=== PATIENT | male | born 1955 | race Caucasian/White ===

== ENCOUNTER 2025-03-24 11:28 | Observation (INO) ==
[2025-03-24] MEDS ORDERED: ULTANE GAS IN ONE (11:30)
[2025-03-24] MEDS ORDERED: XYLOCAINE 2 % (PLAIN) ONE (11:30)
[2025-03-24] MEDS ORDERED: KETAMINE HCL ONE (11:30)
[2025-03-24] MEDS: DUONEB 0.5 MG/3 MG (3 mL) NEB ONE (12:12)
[2025-03-24] MEDS: LR 1,000 ML IV 1,000 ML IV ONE (12:12)
[2025-03-24 12:27] VITALS: BMI 28.3
[2025-03-24] MEDS: XYLOCAINE 2 % (PLAIN) ONE (13:46)
[2025-03-24] MEDS: OFIRMEV IV 1000 MG VIAL 0 MG/0 ML VIAL IV ONE (13:46)
[2025-03-24] MEDS: DIPRIVAN VIAL 20 ML ONE (13:46)
[2025-03-24] MEDS: FENTANYL VIAL INJ 100 mcg ONE (13:48)
[2025-03-24] MEDS: VERSED ONE (13:49)
[2025-03-24] MEDS: AMIDATE INJ 40 MG VIAL ONE (16:42)
[2025-03-24] MEDS: NS 100 ML IV 100 ML ONE (16:55)
[2025-03-24] MEDS: ANCEF VIAL 1 GRAM ONE (16:55)
[2025-03-24] MEDS: BETADINE SOLN ONE (17:05)
[2025-03-24] MEDS: DILAUDID INJ ONE (17:18)
[2025-03-24] MEDS: TORADOL 30 MG VIAL ONE (17:20)
[2025-03-24] MEDS: OFIRMEV IV 1000 MG VIAL 1,000 MG/100 ML VIAL IV ONE (17:20)
[2025-03-24] MEDS: PRECEDEX INJ VIAL ONE (17:23)
[2025-03-24] MEDS: MARCAINE/EPINEPHRINE ONE (17:24)
[2025-03-24] MEDS ORDERED: BARHEMSYS INJ IVP PRN (17:45)
[2025-03-24] MEDS ORDERED: BENADRYL INJ 50 MG VIAL IVP PRN (17:45)
[2025-03-24] MEDS ORDERED: REGLAN INJ 10 MG VIAL IVP PRN (17:45)
[2025-03-24] MEDS ORDERED: ZOFRAN INJ 4 MG VIAL IVP PRN (17:45)
[2025-03-24] MEDS ORDERED: DILAUDID INJ IVP PRN (17:45)
[2025-03-24] MEDS ORDERED: PROVENTIL NEB TX 0.083% 2.5MG/ 3ML NEB PRN (17:55)
--- NOTE | 2025-03-24 18:12 | OR.IMMED ---
IMMEDIATE POST-OP NOTE Immediate Post-Op Note Date of surgery/procedure: 03/24/25 Pre-Op Diagnosis: Ischemic left leg failed revascularization Post-Op Diagnosis: Same Procedure: Left below-knee amputation Description of Procedure: dictated Surgeon/Sock Mender: Victoriano Findings: as above, non healing left transmetatarsal amputation Specimens Removed: left leg below knee Estimated Blood Loss: 200cc Complications: none Progress Notes: to PACU , then to floor
[2025-03-24 18:34] LABS: MEAN PLATELET VOLUME 8.0 fL (7.4-11.0); RED CELL DISTRIBUTION WIDTH 16.1 % (11.6-16.5)
[2025-03-24] MEDS: LR 1,000 ML IV 1,000 ML IV SCH (19:05)
[2025-03-24] MEDS: COREG TAB 12.5 MG PO SCH (20:51)
[2025-03-25 00:07] VITALS: O2SAT 100
[2025-03-25] MEDS: PERCOCET TAB 5/325 MG PO PRN (01:21)
[2025-03-25 06:45] LABS: COR CA(FOR HYPOALB) 10.0 mg/dL (8.5-10.1); COR NA(FOR HYPERGLY) 137 mmol/L (136-145); CREATININE 0.80 mg/dL (0.70-1.30); eGFR NON BLACK RACES > 60 (>60)
[2025-03-25 06:57] LABS: RED CELL DISTRIBUTION WIDTH 16.5 % (11.6-16.5)
[2025-03-25 07:00] LABS: MEAN PLATELET VOLUME 8.3 fL (7.4-11.0)
[2025-03-25 07:16] LABS: PLATELET MORPHOLOGY COMMENT NORMAL (NORMAL)
[2025-03-25] MEDS: LOVENOX INJ 40 MG SYR SC SCH (08:37)
[2025-03-25] MEDS: ASPIRIN EC 81 MG PO SCH (08:38)
[2025-03-25] MEDS: ALDACTONE TAB 25 MG PO SCH (08:38)
[2025-03-25 09:14] VITALS: RESP 18
[2025-03-25 12:02] VITALS: BP 108/53; PULSE 74; TEMP 97.7
--- NOTE | 2025-03-25 12:19 | W.DIS.FURT ---
Summary of Discharge Discharge Summary of Date Date of Exam: 03/25/25 Admission Date Date of Admission: 03/24/25 Admission Diagnosis Hospital Course: 69 yo male with significant peripheral vascular s/p revascularization both legs and b/l tranmetatarsal amputations . Left side has never healed and after open revision of left femoral popliteal bypass to left femoral, peroneal bypass left foot is severely ischemic. He underwent uncomplicated left below knee amputation and has done well. Pain controlled with po pain medications and he already has walker at home. F/U with me 10 days and leave compressive dressing in place. He will be on his usual pain medications and will have prescription for po Perceocet, 5 mg . Hgb post op yesterday was 7.7 and is 7.8 this AM. His vitals are stable . Vital Signs: Vital Signs (72 hours) 03/24/25 12:01 03/24/25 12:14 03/24/25 12:16 Temperature 98.9 F Pulse Rate 113 H 113 H Pulse Rate [Left Radial] Respiratory Rate 20 Blood Pressure 129/69 Blood Pressure [Left Arm] O2 Sat by Pulse Oximetry 100 Oxygen Delivery Method Room Air Room Air Oxygen Flow Rate 100 FIO2% 03/24/25 18:07 03/24/25 18:12 03/24/25 18:17 Temperature 99.5 F Pulse Rate 92 H 91 H 86 Pulse Rate [Left Radial] Respiratory Rate 16 18 18 Blood Pressure 125/69 124/71 108/61 Blood Pressure [Left Arm] O2 Sat by Pulse Oximetry 100 100 95 Oxygen Delivery Method Aerosol Face Tent Aerosol Face Tent Nasal Cannula Oxygen Flow Rate FIO2% 03/24/25 18:22 03/24/25 18:27 03/24/25 18:32 Temperature Pulse Rate 86 84 83 Pulse Rate [Left Radial] Respiratory Rate 18 18 18 Blood Pressure 113/62 108/64 106/61 Blood Pressure [Left Arm] O2 Sat by Pulse Oximetry 97 96 99 Oxygen Delivery Method Nasal Cannula Nasal Cannula Nasal Cannula Oxygen Flow Rate FIO2% 03/24/25 18:37 03/24/25 18:45 03/24/25 19:00 Temperature 97.6 F Pulse Rate 84 Pulse Rate [Left Radial] 90 Respiratory Rate 18 18 Blood Pressure 111/65 Blood Pressure [Left Arm] 116/62 O2 Sat by Pulse Oximetry 100 98 Oxygen Delivery Method Nasal Cannula Nasal Cannula Nasal Cannula Oxygen Flow Rate 2 2 FIO2% 03/24/25 19:00 03/24/25 19:00 03/24/25 19:15 Temperature 97.6 F 97.8 F Pulse Rate Pulse Rate [Left Radial] 80 85 Respiratory Rate 17 18 Blood Pressure Blood Pressure [Left Arm] 117/63 107/61 O2 Sat by Pulse Oximetry 97 99 Oxygen Delivery Method Nasal Cannula Nasal Cannula Nasal Cannula Oxygen Flow Rate 2 2 2 FIO2% 28 03/24/25 19:30 03/24/25 19:45 03/24/25 20:00 Temperature 97.9 F 97.9 F 97.9 F Pulse Rate Pulse Rate [Left Radial] 80 85 80 Respiratory Rate 20 20 20 Blood Pressure Blood Pressure [Left Arm] 111/61 105/60 117/65 O2 Sat by Pulse Oximetry 98 98 95 Oxygen Delivery Method Nasal Cannula Nasal Cannula Nasal Cannula Oxygen Flow Rate 2 2 2 FIO2% 03/24/25 20:45 03/24/25 21:20 03/24/25 21:45 Temperature 98.2 F 98.0 F Pulse Rate 88 Pulse Rate [Left Radial] 90 79 Respiratory Rate 18 18 Blood Pressure Blood Pressure [Left Arm] 105/59 110/63 O2 Sat by Pulse Oximetry 99 100 99 Oxygen Delivery Method Nasal Cannula Nasal Cannula Oxygen Flow Rate 2 2 FIO2% 03/24/25 22:45 03/24/25 23:45 03/25/25 00:00 Temperature 97.9 F 98.1 F 98.2 F Pulse Rate Pulse Rate [Left Radial] 80 80 87 Respiratory Rate 18 20 18 Blood Pressure Blood Pressure [Left Arm] 112/59 115/62 117/66 O2 Sat by Pulse Oximetry 100 100 100 Oxygen Delivery Method Nasal Cannula Nasal Cannula Oxygen Flow Rate 2 2 FIO2% 03/25/25 01:21 03/25/25 02:21 03/25/25 04:00 Temperature 97.7 F Pulse Rate Pulse Rate [Left Radial] 79 Respiratory Rate 20 18 20 Blood Pressure Blood Pressure [Left Arm] 116/60 O2 Sat by Pulse Oximetry 100 Oxygen Delivery Method Oxygen Flow Rate FIO2% 03/25/25 05:23 03/25/25 06:23 03/25/25 07:00 Temperature Pulse Rate Pulse Rate [Left Radial] Respiratory Rate 20 20 Blood Pressure Blood Pressure [Left Arm] O2 Sat by Pulse Oximetry Oxygen Delivery Method Room Air Oxygen Flow Rate FIO2% 03/25/25 08:00 03/25/25 09:03 03/25/25 10:03 Temperature 97.9 F Pulse Rate Pulse Rate [Left Radial] 93 H Respiratory Rate 16 18 18 Blood Pressure Blood Pressure [Left Arm] 100/55 O2 Sat by Pulse Oximetry 100 Oxygen Delivery Method Nasal Cannula Oxygen Flow Rate 2 FIO2% 03/25/25 10:20 03/25/25 12:00 Temperature 97.7 F Pulse Rate Pulse Rate [Left Radial] 74 Respiratory Rate 18 Blood Pressure Blood Pressure [Left Arm] 108/53 O2 Sat by Pulse Oximetry 100 Oxygen Delivery Method Nasal Cannula Nasal Cannula Oxygen Flow Rate 2 2 FIO2% 28 Labs: Laboratory Last Values WBC 9.1 X10^3/uL (3.6-10.0) 03/25/25 05:23 RBC 2.52 X10^6/uL (4.7-6.0) L 03/25/25 05:23 Hgb 7.8 g/dL (13.5-18.0) L 03/25/25 05:23 Hct 23.0 % (42.0-54.0) L 03/25/25 05:23 MCV 91.2 fL (80.0-100.0) 03/25/25 05:23 MCH 31.0 pg (27.0-34.0) 03/25/25 05:23 MCHC 34.0 g/dL (33.0-35.0) 03/25/25 05:23 RDW 16.5 % (11.6-16.5) 03/25/25 05:23 Plt Count 237 X10^3/uL (150.0-450.0) 03/25/25 05:23 Plt Count Comment Adequate (ADEQUATE) 03/25/25 05:23 MPV 8.3 fL (7.4-11.0) 03/25/25 05:23 Neut % (Auto) 68.2 % (42.0-75.0) 03/25/25 05:23 Lymph % (Auto) 19.2 % (21.0-51.0) L 03/25/25 05:23 [place] % (Auto) 11.7 % (0.0-13.0) 03/25/25 05:23 Eos % (Auto) 0.4 % (0.9-2.9) L 03/25/25 05:23 Baso % (Auto) 0.5 % (0.2-1.0) 03/25/25 05:23 Neut # (Auto) 6.2 x10^3/uL (2.2-4.8) H 03/25/25 05:23 Lymph # (Auto) 1.8 X10^3/uL (1.3-2.9) 03/25/25 05:23 [place] # (Auto) 1.1 x10^3/uL (0.3-0.8) H 03/25/25 05:23 Eos # (Auto) 0.0 x10^3/uL (0.0-0.2) 03/25/25 05:23 Baso # (Auto) 0.0 X10^3/uL (0.0-0.1) 03/25/25 05:23 Absolute Nucleated RBC 0.1 /100WBC 03/25/25 05:23 Total Counted 100 03/25/25 05:23 Neutrophils % (Manual) 80 % (39-76) H 03/25/25 05:23 Lymphocytes % (Manual) 14 % (13-43) 03/25/25 05:23 Monocytes % (Manual) 6 % (4-9) 03/25/25 05:23 Plt Morphology Comment Normal (NORMAL) 03/25/25 05:23 RBC Morphology Normal (NORMAL) 03/25/25 05:23 Sodium 137 mmol/L (136-145) 03/25/25 05:23 Corrected Sodium 137 mmol/L (136-145) 03/25/25 05:23 Potassium 3.7 mmol/L (3.5-5.1) 03/25/25 05:23 Chloride 101 mmol/L (98-107) 03/25/25 05:23 Carbon Dioxide 32.3 mmol/L (21-32) H 03/25/25 05:23 BUN 12 mg/dL (7-18) 03/25/25 05:23 Creatinine 0.80 mg/dL (0.70-1.30) 03/25/25 05:23 Est GFR (MDRD) Af Amer > 60 (>60) 03/25/25 05:23 Est GFR (MDRD) Non-Af > 60 (>60) 03/25/25 05:23 Glucose 119 mg/dL (65-99) H 03/25/25 05:23 Calcium 8.2 mg/dL (8.5-10.1) L 03/25/25 05:23 Corrected Calcium 10.0 mg/dL (8.5-10.1) 03/25/25 05:23 Total Bilirubin 0.70 mg/dL (0.2-1.0) 03/25/25 05:23 AST 30 Units/L (15-37) 03/25/25 05:23 ALT 248 Units/L (12-78) H 03/25/25 05:23 Alkaline Phosphatase 88 Units/L (46-116) 03/25/25 05:23 Total Protein 6.1 g/dL (6.4-8.2) L 03/25/25 05:23 Albumin 1.8 g/dL (3.4-5.0) L 03/25/25 05:23 Globulin 4.3 g/dL (2.5-4.5) 03/25/25 05:23 Albumin/Globulin Ratio 0.4 Ratio (1.1-2.1) L 03/25/25 05:23 Blood Type AB NEGATIVE 03/24/25 13:23 Antibody Screen Negative 03/24/25 13:23 Reason For Visit: SURGERY Discharge Date Discharge Date: 03/25/25 Discharge Diagnosis All Active Problems (Updated 11/30/24 @ 08:13 by Vasyl Marrero) Gangrene due to arterial insufficiency (Acute) Personal history of lung cancer (Acute) Essential (primary) hypertension (Acute) Congestive heart disease (Acute) Atherosclerosis of [place] arteries of extremities with rest pain, right leg (Acute) Atherosclerosis of [place] arteries of extremities with rest pain, left leg (Acute) Plan of Treatment: Continue with present treatment and follow up plan. Pt is to keep follow up appointment as instructed and take medications as ordered. Discharge Medications Discharge Medications: pregabalin (From Lyrica) Adverse Reaction (Severe, Verified 03/08/25 18:07) gabapentin Adverse Reaction (Intermediate, Verified 03/08/25 18:07) CONTINUE taking the following medications rivaroxaban 2.5 mg tablet (Xarelto) 2.5 mg PO BID 03/24/25 [History] spironolactone 25 mg tablet 25 mg PO DIRECTED 03/24/25 [History] see below Discharge Disposition Assessment: see hospital course Discharge Plan Discharge Plan Hospital Course: 69 yo male with significant peripheral vascular s/p revascularization both legs and b/l tranmetatarsal amputations . Left side has never healed and after open revision of left femoral popliteal bypass to left femoral, peroneal bypass left foot is severely ischemic. He underwent uncomplicated left below knee amputation and has done well. Pain controlled with po pain medications and he already has walker at home. F/U with me 10 days and leave compressive dressing in place. He will be on his usual pain medications and will have prescription for po Perceocet, 5 mg . Hgb post op yesterday was 7.7 and is 7.8 this AM. His vitals are stable . Patient Disposition: HOME HEALTH SERVICE Condition: Stable Health Concerns: Post Hospitalization: new medications and changes needed to prevent readmission or further decline. Pt educated and given instructions on all concerns. Care Plan Goals: Problem: Pain/Alteration in Comfort Goal: Improve/ Resolve Pain; Achieve Pain Tolerance Instructions: Take pain medications as prescribed. Contact your primary care provider if your pain is unrelieved or worsens. Follow up with primary care provider as directed. Plan of Treatment: Continue with present treatment and follow up plan. Pt is to keep follow up appointment as instructed and take medications as ordered. Assessment: see hospital course Prescriptions: New oxycodone-acetaminophen [Percocet] 5-325 mg tablet 1 tab PO Q6H MDD 4 PRNQty: 30 0RF Continued clopidogrel [Plavix] 75 mg Tablet 75 mg PO DAILY oxycodone-acetaminophen [Percocet] 5-325 mg tablet 1 tab PO Q6H MDD 4 PRNQty: 30 0RF rivaroxaban [Xarelto] 2.5 mg Tablet 2.5 mg PO BID Rx Instructions: with food spironolactone 25 mg Tablet 25 mg PO DIRECTED aspirin 81 mg Tablet 81 mg PO QDAY carvedilol 12.5 mg Tablet 12.5 mg PO BID Rx Instructions: must administer with a meal/food oxycodone-acetaminophen [Percocet] 5-325 mg tablet 1 tab PO Q6H MDD 4 PRNQty: 30 0RF Follow ups/Referrals Follow ups/Referrals: Cisco Pastrana [STAFF PHYSICIAN, Unknown] - 04/11/25 3:45 pm Instructions Instructions: Stump and Prosthesis Care, Living With an Amputation, Phantom Limb Pain, Gangrene Stand Alone Forms: Excuse From Work or School, Find Help Web Site, [facility], Post Hospital Follow Up Care Print Language: SLOVENIAN
--- NOTE | 2025-03-30 15:10 | DR.OPNOTE ---
OP NOTE Pre-Op Diagnosis: Gangrenous changes left foot Post-Op Diagnosis: Same Procedure Date Date Of Procedure: 03/24/25 Procedure: PROCEED: Left below-knee amputation NARRATIVE: Patient taken to the operative suite placed in supine position and general anesthesia induced with LMA to control the airway. Entire left leg prepped and draped in sterile fashion. Timeout for the procedure obtained. A standard dog legged incision was made 1 handsbreadth below the tibial tuberosity and extended inferiorly and posteriorly. Electrocautery used to divide the muscles in the anterior tibial compartment and anterior tibial artery and vein divided between clamps and tied with 2-0 silk suture ligatures the tibia was divided with a Gigli saw and the fibula divided higher with a bone cutter. Amputation knife used to complete the amputation. Specimen removed. All bleeding vessels were clamped and tied with 2-0 silk suture ligatures. The wound irrigated. The 2 flaps approximated interrupted with 0 Vicryl interuppted sutures and the skin closed with skin frida. Compressive dressing applied. Patient tolerated this well Type of Anesthesia: General Anesthetic w/ETT (General anesthesia performed with LMA) Findings: As above Specimen/Pathology: Left leg below-knee Type of Fluids Used:: Lactated Ringers EBL: 100 cc Complications:: none Disposition/Condition: Pt. tolerated procedure without difficulty. Extubated in the OR and taken to PACU in stable condition.
== END 2025-03-25 12:20 | disposition home health service (06) ==
LOC: INTOOBSV 11:28 → MED/SURG 11:28
PROVIDERS: ADMIT Surgery; ATTEND Surgery
DX: Z85.118 Personal history of other malignant neoplasm of bronchus and lung; Z98.890 Other specified postprocedural states; I70.222 Atherosclerosis of native arteries of extremities with rest pain, left leg; I96 Gangrene, not elsewhere classified; R74.01 Elevation of levels of liver transaminase levels; I10 Essential (primary) hypertension; R26.89 Other abnormalities of gait and mobility; R73.09 Other abnormal glucose; Z86.79 Personal history of other diseases of the circulatory system

== ENCOUNTER 2025-04-08 10:09 | Inpatient (IN) ==
[2025-04-08] MEDS ORDERED: PRECEDEX INJ VIAL ONE (10:10)
[2025-04-08] MEDS: DILAUDID INJ IVP PRN (11:54)
[2025-04-08] MEDS: LR 1,000 ML IV 1,000 ML IV SCH (12:15)
[2025-04-08 12:37] LABS: MEAN PLATELET VOLUME 7.6 fL (7.4-11.0); RED CELL DISTRIBUTION WIDTH 17.8 % (11.6-16.5)
[2025-04-08 12:57] LABS: COR CA(FOR HYPOALB) 9.9 mg/dL (8.5-10.1); CREATININE 0.90 mg/dL (0.70-1.30); eGFR NON BLACK RACES > 60 (>60)
[2025-04-08] MEDS: ZOSYN VIAL 3.375 GRAMS 3.375 G in NS 100 ML IV 100 ML IV SCH (15:15)
[2025-04-08 16:20] VITALS: BMI 28.3
[2025-04-08] MEDS: NS 250 ML IV 250 ML IV ONE (17:03)
[2025-04-08] MEDS: NS 250 ML IV 25 ML IV PRN (21:05)
[2025-04-08] MEDS ORDERED: HIBICLENS WASH ONE (21:26)
[2025-04-09 05:01] LABS: MEAN PLATELET VOLUME 7.6 fL (7.4-11.0); RED CELL DISTRIBUTION WIDTH 17.8 % (11.6-16.5)
[2025-04-09] MEDS: HIBICLENS WASH EXT ONE (05:08)
[2025-04-09 05:10] LABS: COR CA(FOR HYPOALB) 9.8 mg/dL (8.5-10.1); CREATININE 1.00 mg/dL (0.70-1.30); eGFR NON BLACK RACES > 60 (>60)
[2025-04-09] MEDS ORDERED: CONSULT PHARMACY - POTASSIUM & MAGNESIUM XX SCH (08:00)
[2025-04-09] MEDS ORDERED: MAG-OX TAB PO SCH (09:00)
[2025-04-09] MEDS: ALDACTONE TAB 25 MG PO SCH (09:22)
[2025-04-09] MEDS: MAGNESIUM SULFATE 1 GRAM/100 mL PREMIX 1 G/100 ML BAG IV SCH (09:27)
--- NOTE | 2025-04-09 09:39 | DR.CONSULT ---
CONSULT Consultation for Day of: Date: 04/09/25 Chief Complaint Chief Complaint: right TMA site Allergies Allergies Allergy/AdvReac Type Severity Reaction Status Date / Time pregabalin (From Lyrica) AdvReac Severe Verified 03/08/25 18:07 gabapentin AdvReac Intermediate Verified 03/08/25 18:07 History of Present Illness History of Present Illness: Mr. Wilhelm is a 69 y/o who presented after a fall at home where he landed on his left BKA site. Patient is scheduled for a debridement with Dr. Pastrana today. Podiatry was consulted for the RLE. Patient underwent a right transmetatarsal amputation on 03/02/25 and has been seen outpatient by Dr. Lewis. Patient has had home health care removing the bandages, however, he missed his last appointment on 04/[address] Lewis due to the fall. Patient states he thought his TMA site was looking good and did not notice any changes with his leg. He states he gets redness in his leg and has said it was cellulitis. Patient denies any fevers at this time. Past Medical History Past Medical History: CHF and Hypertension Additional Medical History: History of right lung cancer resected thorocoscopically . No adjuvant treatment given or required. Past Surgical History Surgical History: Angioplasty/Stents, Ortho Surgery and Other Family History Family Medical History: Diabetes Mellitus Social History Does patient currently use any type of tobacco product: Yes Have you used tobacco products in the last 12 months: Yes Type of Tobacco Use: Cigarettes Medications Home Medications: pregabalin (From Lyrica) Adverse Reaction (Severe, Verified 03/08/25 18:07) gabapentin Adverse Reaction (Intermediate, Verified 03/08/25 18:07) CONTINUE taking the following medications albuterol sulfate 2.5 mg/3 mL (0.083 %) solution for nebulization 2.5 mg continuous nebulization Q6H PRN 04/08/25 [History] tramadol 50 mg tablet 50 mg PO Q4H PRN 04/08/25 [History] Physical Exam Vital Signs: Vital Signs Temperature 98.0 F Temperature 98.0 F Temperature 98.0 F Pulse Rate [Bilateral Radial] 95 Pulse Rate 101 Pulse Rate 104 Pulse Rate 96 Pulse Rate 100 Pulse Rate 100 Pulse Rate 102 Pulse Rate 108 Pulse Rate 109 Pulse Rate 103 Pulse Rate 96 Pulse Rate 103 Pulse Rate 96 Pulse Rate 102 Pulse Rate 99 Pulse Rate 99 Pulse Rate 99 Pulse Rate 104 Pulse Rate 98 Pulse Rate 97 Pulse Rate 102 Pulse Rate 111 Pulse Rate 105 Pulse Rate 96 Pulse Rate 95 Pulse Rate 98 Pulse Rate 97 Pulse Rate 100 Pulse Rate 97 Pulse Rate 98 Pulse Rate 102 Pulse Rate 109 Pulse Rate 115 Pulse Rate 110 Pulse Rate 92 Pulse Rate 89 Pulse Rate 92 Respiratory Rate 14 Respiratory Rate 17 Respiratory Rate 18 Respiratory Rate 16 Respiratory Rate 11 Respiratory Rate 19 Respiratory Rate 15 Respiratory Rate 17 Respiratory Rate 14 Respiratory Rate 18 Respiratory Rate 16 Respiratory Rate 14 Respiratory Rate 18 Respiratory Rate 20 Respiratory Rate 22 Respiratory Rate 22 Respiratory Rate 16 Respiratory Rate 18 Respiratory Rate 18 Respiratory Rate 18 Respiratory Rate 17 Respiratory Rate 14 Respiratory Rate 24 Respiratory Rate 17 Respiratory Rate 32 Respiratory Rate 28 Respiratory Rate 17 Respiratory Rate 17 Respiratory Rate 17 Respiratory Rate 20 Respiratory Rate 20 Respiratory Rate 21 Respiratory Rate 19 Respiratory Rate 17 Respiratory Rate 18 Respiratory Rate 16 Respiratory Rate 28 Respiratory Rate 18 Respiratory Rate 17 Respiratory Rate 22 Blood Pressure [Left Arm] 127/62 Blood Pressure 130/76 Blood Pressure 128/68 Blood Pressure 128/67 Blood Pressure 128/60 Blood Pressure 128/60 Blood Pressure 124/64 Blood Pressure 124/64 Blood Pressure 127/62 Blood Pressure 127/62 Blood Pressure 127/64 Blood Pressure 127/64 Blood Pressure 118/66 Blood Pressure 118/66 O2 Sat by Pulse Oximetry 95 O2 Sat by Pulse Oximetry 96 O2 Sat by Pulse Oximetry 94 O2 Sat by Pulse Oximetry 97 O2 Sat by Pulse Oximetry 95 O2 Sat by Pulse Oximetry 95 O2 Sat by Pulse Oximetry 95 O2 Sat by Pulse Oximetry 98 O2 Sat by Pulse Oximetry 98 O2 Sat by Pulse Oximetry 96 O2 Sat by Pulse Oximetry 95 O2 Sat by Pulse Oximetry 95 O2 Sat by Pulse Oximetry 95 O2 Sat by Pulse Oximetry 95 O2 Sat by Pulse Oximetry 96 O2 Sat by Pulse Oximetry 95 O2 Sat by Pulse Oximetry 92 O2 Sat by Pulse Oximetry 97 O2 Sat by Pulse Oximetry 94 O2 Sat by Pulse Oximetry 96 O2 Sat by Pulse Oximetry 96 O2 Sat by Pulse Oximetry 86 O2 Sat by Pulse Oximetry 99 O2 Sat by Pulse Oximetry 97 O2 Sat by Pulse Oximetry 98 O2 Sat by Pulse Oximetry 97 O2 Sat by Pulse Oximetry 96 O2 Sat by Pulse Oximetry 98 O2 Sat by Pulse Oximetry 97 O2 Sat by Pulse Oximetry 96 O2 Sat by Pulse Oximetry 96 O2 Sat by Pulse Oximetry 95 O2 Sat by Pulse Oximetry 96 O2 Sat by Pulse Oximetry 99 O2 Sat by Pulse Oximetry 95 O2 Sat by Pulse Oximetry 96 O2 Sat by Pulse Oximetry 97 O2 Sat by Pulse Oximetry 98 RLE focused exam, left BKA noted: To the right TMA site sutures were still intact. Upon removal, surgical site was examined. No bone is exposed at this time. Dehiscence is appreciated to the incision site and measures approximately 6.7 x 0.8 cm. Mild malodor is noted, no fluctuance or crepitus is appreciated to the surrounding site. Periwound erythema is noted that is warm to touch. No increased redness, swelling or cellulitis is noted up the right leg. Mild bleeding was noted to the right foot post-debridement. Post-debridement measurements were the same. Patient has healed wounds to the right calf, no increased warmth or cellulitis is noted. These previously healed wounds are consistent with venous insuffi ciency. Plan (1) Dehiscence of amputation stump of right lower extremity: Status: Acute Plan: - Debrided the Right TMA site, culture was obtained and sent to the lab - Patient may require further surgical intervention to the right TMA site pending culture results - Patient has history of wounds to the right calf, dry sterile dressing with MIGNON wrap for compression was applied - Betadine and dry sterile dressing to the right TMA site - Patient is going to OR today for the left BKA site - Please continue on IV antibiotics at this time - Patient can use the Right foot for transfers only - Will await culture results for further recommendations Please contact me with any questions! Dr. Bridgett Wylie
--- NOTE | 2025-04-09 09:39 | DR.CONSULT ---
CONSULT Consultation for Day of: Date: 04/09/25 Chief Complaint Chief Complaint: right TMA site Allergies Allergies Allergy/AdvReac Type Severity Reaction Status Date / Time pregabalin (From Lyrica) AdvReac Severe Verified 03/08/25 18:07 gabapentin AdvReac Intermediate Verified 03/08/25 18:07 History of Present Illness History of Present Illness: Mr. Wilhelm is a 69 y/o who presented after a fall at home where he landed on his left BKA site. Patient state Past Medical History Past Medical History: CHF and Hypertension Additional Medical History: History of right lung cancer resected thorocoscopically . No adjuvant treatment given or required. Past Surgical History Surgical History: Angioplasty/Stents, Ortho Surgery and Other Family History Family Medical History: Diabetes Mellitus Social History Does patient currently use any type of tobacco product: Yes Have you used tobacco products in the last 12 months: Yes Type of Tobacco Use: Cigarettes Medications Home Medications: pregabalin (From Lyrica) Adverse Reaction (Severe, Verified 03/08/25 18:07) gabapentin Adverse Reaction (Intermediate, Verified 03/08/25 18:07) CONTINUE taking the following medications albuterol sulfate 2.5 mg/3 mL (0.083 %) solution for nebulization 2.5 mg continuous nebulization Q6H PRN 04/08/25 [History] tramadol 50 mg tablet 50 mg PO Q4H PRN 04/08/25 [History] Physical Exam Vital Signs: Vital Signs Temperature 98.0 F Temperature 98.0 F Temperature 98.0 F Pulse Rate [Bilateral Radial] 95 Pulse Rate 103 Pulse Rate 96 Pulse Rate 103 Pulse Rate 96 Pulse Rate 102 Pulse Rate 99 Pulse Rate 99 Pulse Rate 99 Pulse Rate 104 Pulse Rate 98 Pulse Rate 97 Pulse Rate 102 Pulse Rate 111 Pulse Rate 105 Pulse Rate 96 Pulse Rate 95 Pulse Rate 98 Pulse Rate 97 Pulse Rate 100 Pulse Rate 97 Pulse Rate 98 Pulse Rate 102 Pulse Rate 109 Pulse Rate 115 Pulse Rate 110 Pulse Rate 92 Pulse Rate 89 Pulse Rate 92 Respiratory Rate 18 Respiratory Rate 16 Respiratory Rate 14 Respiratory Rate 18 Respiratory Rate 20 Respiratory Rate 22 Respiratory Rate 22 Respiratory Rate 16 Respiratory Rate 18 Respiratory Rate 18 Respiratory Rate 18 Respiratory Rate 17 Respiratory Rate 14 Respiratory Rate 24 Respiratory Rate 17 Respiratory Rate 32 Respiratory Rate 28 Respiratory Rate 17 Respiratory Rate 17 Respiratory Rate 17 Respiratory Rate 20 Respiratory Rate 20 Respiratory Rate 21 Respiratory Rate 19 Respiratory Rate 17 Respiratory Rate 18 Respiratory Rate 16 Respiratory Rate 28 Respiratory Rate 18 Respiratory Rate 17 Respiratory Rate 22 Blood Pressure [Left Arm] 127/62 Blood Pressure 128/67 Blood Pressure 128/60 Blood Pressure 128/60 Blood Pressure 124/64 Blood Pressure 124/64 Blood Pressure 127/62 Blood Pressure 127/62 Blood Pressure 127/64 Blood Pressure 127/64 Blood Pressure 118/66 Blood Pressure 118/66 O2 Sat by Pulse Oximetry 96 O2 Sat by Pulse Oximetry 95 O2 Sat by Pulse Oximetry 95 O2 Sat by Pulse Oximetry 95 O2 Sat by Pulse Oximetry 95 O2 Sat by Pulse Oximetry 96 O2 Sat by Pulse Oximetry 95 O2 Sat by Pulse Oximetry 92 O2 Sat by Pulse Oximetry 97 O2 Sat by Pulse Oximetry 94 O2 Sat by Pulse Oximetry 96 O2 Sat by Pulse Oximetry 96 O2 Sat by Pulse Oximetry 86 O2 Sat by Pulse Oximetry 99 O2 Sat by Pulse Oximetry 97 O2 Sat by Pulse Oximetry 98 O2 Sat by Pulse Oximetry 97 O2 Sat by Pulse Oximetry 96 O2 Sat by Pulse Oximetry 98 O2 Sat by Pulse Oximetry 97 O2 Sat by Pulse Oximetry 96 O2 Sat by Pulse Oximetry 96 O2 Sat by Pulse Oximetry 95 O2 Sat by Pulse Oximetry 96 O2 Sat by Pulse Oximetry 99 O2 Sat by Pulse Oximetry 95 O2 Sat by Pulse Oximetry 96 O2 Sat by Pulse Oximetry 97 O2 Sat by Pulse Oximetry 98
[2025-04-09] MEDS: DIPRIVAN VIAL 20 ML ONE (09:50)
[2025-04-09] MEDS: FENTANYL VIAL INJ 100 mcg ONE (09:50)
[2025-04-09] MEDS: ZOFRAN INJ 4 MG VIAL ONE (09:50)
[2025-04-09] MEDS: REGLAN INJ 10 MG VIAL ONE (09:50)
[2025-04-09] MEDS: VERSED ONE (09:50)
[2025-04-09] MEDS: PEPCID 20 MG VIAL ONE (09:57)
[2025-04-09] MEDS: NS 1,000 ML IV 1,000 ML ONE ×2 (10:01→10:23)
[2025-04-09] MEDS: ANCEF VIAL 1 GRAM ONE (10:23)
[2025-04-09] MEDS ORDERED: PRECEDEX INJ VIAL ONE (10:23)
[2025-04-09] MEDS ORDERED: KETAMINE HCL ONE (10:23)
[2025-04-09] MEDS: NS 100 ML IV 100 ML ONE (10:23)
[2025-04-09] MEDS ORDERED: XYLOCAINE 2 % (PLAIN) ONE (10:23)
--- NOTE | 2025-04-09 10:24 | DR.H&P ---
H&P History & Physical for Day of: H&P Date: 04/08/25 Chief Complaint Chief Complaint: Patient with significant peripheral vascular disease with history of fem- fem graft and failed left fem- pop Gortex graft who had multiple arterial interventions of the left leg ultimately requiring left below knee amputation. He fell on the left BK stump and rupture it open . Admitted for wound care , pain control and planned wash out of the left leg stump and closure . May apply wound vacuum. Right leg has had arterial intervention with subsequent right trans metatarsal amputation. Sutures still in place left TMA History of Present Illness History of Present Illness: see ABOVE Past Medical History Past Medical History: CHF, COPD and Hypertension Additional Medical History: History of right lung cancer resected thorocoscopically . No adjuvant treatment given or required. Past Surgical History Surgical History: Angioplasty/Stents, Ortho Surgery and Other Family History Family Medical History: Diabetes Mellitus Social History Does patient currently use any type of tobacco product: Yes Have you used tobacco products in the last 12 months: Yes Type of Tobacco Use: Cigarettes Medications Home Medications: Home Medications Medication Instructions Recorded Confirmed Type carvedilol 12.5 mg tablet 12.5 mg PO BID 11/29/2403/15 History clopidogrel 75 mg tablet (Plavix) 75 mg PO DAILY 03/0804/08/25 History spironolactone 25 mg tablet 25 mg PO DAILY 03/24/25 History albuterol sulfate 2.5 mg/3 mL 2.5 mg continuous nebuli zation Q6H 04/08/25 04/08/25 History (0.083 %) solution for nebulization PRN tramadol 50 mg tablet 50 mg PO Q4H PRN 04/08/25 History Allergies Allergies Allergy/AdvReac Type Severity Reaction Status Date / Time pregabalin (From Lyrica) AdvReac Severe Verified 03/08/25 18:07 gabapentin AdvReac Intermediate Verified 03/08/25 18:07 Labs 04/09/25 04:15 04/09/25 04:15 Labs: Laboratory WBC 8.0 X10^3/uL (3.6-10.0) 04/09/25 04:15 RBC 2.92 X10^6/uL (4.7-6.0) L 04/09/25 04:15 Hgb 9.0 g/dL (13.5-18.0) L 04/09/25 04:15 Hct 26.9 % (42.0-54.0) L 04/09/25 04:15 MCV 92.0 fL (80.0-100.0) 04/09/25 04:15 MCH 30.8 pg (27.0-34.0) 04/09/25 04:15 MCHC 33.4 g/dL (33.0-35.0) 04/09/25 04:15 RDW 17.8 % (11.6-16.5) H 04/09/25 04:15 Plt Count 379 X10^3/uL (150.0-450.0) 04/09/25 04:15 MPV 7.6 fL (7.4-11.0) 04/09/25 04:15 Neut % (Auto) 73.9 % (42.0-75.0) 04/09/25 04:15 Lymph % (Auto) 11.8 % (21.0-51.0) L 04/09/25 04:15 Wood % (Auto) 12.9 % (0.0-13.0) 04/09/25 04:15 Eos % (Auto) 0.6 % (0.9-2.9) L 04/09/25 04:15 Baso % (Auto) 0.8 % (0.2-1.0) 04/09/25 04:15 Neut # (Auto) 5.9 x10^3/uL (2.2-4.8) H 04/09/25 04:15 Lymph # (Auto) 0.9 X10^3/uL (1.3-2.9) L 04/09/25 04:15 Wood # (Auto) 1.0 x10^3/uL (0.3-0.8) H 04/09/25 04:15 Eos # (Auto) 0.0 x10^3/uL (0.0-0.2) 04/09/25 04:15 Baso # (Auto) 0.1 X10^3/uL (0.0-0.1) 04/09/25 04:15 Absolute Nucleated RBC 0.1 /100WBC 04/09/25 04:15 Sodium 134 mmol/L (136-145) L 04/09/25 04:15 Corrected Sodium TNP 04/09/25 04:15 Potassium 4.2 mmol/L (3.5-5.1) 04/09/25 04:15 Chloride 97 mmol/L (98-107) L 04/09/25 04:15 Carbon Dioxide 29.2 mmol/L (21-32) 04/09/25 04:15 BUN 7 mg/dL (7-18) 04/09/25 04:15 Creatinine 1.00 mg/dL (0.70-1.30) 04/09/25 04:15 Est GFR (MDRD) Af Amer > 60 (>60) 04/09/25 04:15 Est GFR (MDRD) Non-Af > 60 (>60) 04/09/25 04:15 Glucose 94 mg/dL (65-99) 04/09/25 04:15 Calcium 8.4 mg/dL (8.5-10.1) L 04/09/25 04:15 Corrected Calcium 9.8 mg/dL (8.5-10.1) 04/09/25 04:15 Magnesium 1.9 mg/dL (2.0-2.9) L 04/09/25 04:15 Total Bilirubin 1.00 mg/dL (0.2-1.0) 04/09/25 04:15 AST 15 Units/L (15-37) 04/09/25 04:15 ALT 17 Units/L (12-78) 04/09/25 04:15 Alkaline Phosphatase 103 Units/L (46-116) 04/09/25 04:15 Total Protein 7.1 g/dL (6.4-8.2) 04/09/25 04:15 Albumin 2.3 g/dL (3.4-5.0) L 04/09/25 04:15 Globulin 4.8 g/dL (2.5-4.5) H 04/09/25 04:15 Albumin/Globulin Ratio 0.5 Ratio (1.1-2.1) L 04/09/25 04:15 Review of Systems Constitutional: See HPI Eyes: No Symptoms Reported ENT: No Symptoms Reported Respiratory: No Symptoms Reported Cardiovascular: No Symptoms Reported Gastrointestinal: No Symptoms Reported Genitourinary: No Symptoms Reported Musculoskeletal: See HPI Skin: See HPI Neurological: No Symptoms Reported Physical Exam Vital Signs: Vital Signs Temperature 99.8 F Temperature 98.0 F Temperature 98.0 F Temperature 98.0 F Pulse Rate [Bilateral Radial] 95 Pulse Rate 101 Pulse Rate 104 Pulse Rate 96 Pulse Rate 100 Pulse Rate 100 Pulse Rate 102 Pulse Rate 108 Pulse Rate 109 Pulse Rate 103 Pulse Rate 96 Pulse Rate 103 Pulse Rate 96 Pulse Rate 102 Pulse Rate 99 Pulse Rate 99 Pulse Rate 99 Pulse Rate 104 Pulse Rate 98 Pulse Rate 97 Pulse Rate 102 Pulse Rate 111 Pulse Rate 105 Pulse Rate 96 Pulse Rate 95 Pulse Rate 98 Pulse Rate 97 Pulse Rate 100 Pulse Rate 97 Pulse Rate 98 Pulse Rate 102 Pulse Rate 109 Pulse Rate 115 Respiratory Rate 14 Respiratory Rate 17 Respiratory Rate 18 Respiratory Rate 16 Respiratory Rate 11 Respiratory Rate 19 Respiratory Rate 15 Respiratory Rate 17 Respiratory Rate 14 Respiratory Rate 18 Respiratory Rate 16 Respiratory Rate 14 Respiratory Rate 18 Respiratory Rate 20 Respiratory Rate 22 Respiratory Rate 22 Respiratory Rate 16 Respiratory Rate 18 Respiratory Rate 18 Respiratory Rate 18 Respiratory Rate 17 Respiratory Rate 14 Respiratory Rate 24 Respiratory Rate 17 Respiratory Rate 32 Respiratory Rate 28 Respiratory Rate 17 Respiratory Rate 17 Respiratory Rate 17 Respiratory Rate 20 Respiratory Rate 20 Respiratory Rate 21 Respiratory Rate 19 Respiratory Rate 17 Respiratory Rate 18 Respiratory Rate 16 Blood Pressure [Left Arm] 127/62 Blood Pressure 130/76 Blood Pressure 128/68 Blood Pressure 128/67 Blood Pressure 128/60 Blood Pressure 128/60 Blood Pressure 124/64 Blood Pressure 124/64 Blood Pressure 127/62 Blood Pressure 127/62 Blood Pressure 127/64 Blood Pressure 127/64 O2 Sat by Pulse Oximetry 95 O2 Sat by Pulse Oximetry 96 O2 Sat by Pulse Oximetry 94 O2 Sat by Pulse Oximetry 97 O2 Sat by Pulse Oximetry 95 O2 Sat by Pulse Oximetry 95 O2 Sat by Pulse Oximetry 95 O2 Sat by Pulse Oximetry 98 O2 Sat by Pulse Oximetry 98 O2 Sat by Pulse Oximetry 96 O2 Sat by Pulse Oximetry 95 O2 Sat by Pulse Oximetry 95 O2 Sat by Pulse Oximetry 95 O2 Sat by Pulse Oximetry 95 O2 Sat by Pulse Oximetry 96 O2 Sat by Pulse Oximetry 95 O2 Sat by Pulse Oximetry 92 O2 Sat by Pulse Oximetry 97 O2 Sat by Pulse Oximetry 94 O2 Sat by Pulse Oximetry 96 O2 Sat by Pulse Oximetry 96 O2 Sat by Pulse Oximetry 86 O2 Sat by Pulse Oximetry 99 O2 Sat by Pulse Oximetry 97 O2 Sat by Pulse Oximetry 98 O2 Sat by Pulse Oximetry 97 O2 Sat by Pulse Oximetry 96 O2 Sat by Pulse Oximetry 98 O2 Sat by Pulse Oximetry 97 O2 Sat by Pulse Oximetry 96 O2 Sat by Pulse Oximetry 96 O2 Sat by Pulse Oximetry 95 O2 Sat by Pulse Oximetry 96 O2 Sat by Pulse Oximetry 99 Oriented: Normal, Time, Person and Place Eyes: Normal Ear: Normal Nose: Normal Throat: Normal Respiratory: Clear Throughout Cardiovascular: Normal : Normal Auscultation: Bowel Sounds: Normal Palpation: Normal Tenderness: Normal Skin: Normal Musculoskeletal: Left (LEFT bka STUMP OPEN WITH PURULENT DRAINAGE) Psychiatric: Normal Mood Description: Calm Affect: Normal Speech Pattern: Clear and Appropriate Assessment/Plan (1) Dehiscence of amputation stump of right lower extremity: Status: Acute Plan: admit, IV antibiotics, wash out of left BK stump and secondary closure and place wound vacuum (2) Personal history of lung cancer: Status: Acute (3) Essential (primary) hypertension: Status: Acute Plan: home meds (4) Congestive heart disease: Status: Acute Plan: home meds (5) Atherosclerosis of [place] arteries of extremities with rest pain, right leg: Status: Acute Plan: Will consult Podiatry to have them look at right TMA and make recommendations for care (6) Atherosclerosis of [place] arteries of extremities with rest pain, left leg: Status: Acute
[2025-04-09] MEDS: OFIRMEV IV 1000 MG VIAL 1,000 MG/100 ML VIAL IV ONE (10:33)
[2025-04-09] MEDS: DILAUDID INJ ONE (10:48)
--- NOTE | 2025-04-09 11:11 | OR.IMMED ---
IMMEDIATE POST-OP NOTE Immediate Post-Op Note Date of surgery/procedure: 04/09/25 Pre-Op Diagnosis: Patient fell and rupture left BK stump Post-Op Diagnosis: same Procedure: wash our left BK stump, partial closure and place wound vacuum Description of Procedure: dictated Surgeon/Shipping Receiving Clerk: Victoriano Findings: as above , wound 12 x 8 x 5 cm Estimated Blood Loss: minimal Complications: none Progress Notes: to CCU continue wound vacuum
[2025-04-09] MEDS: COREG TAB 12.5 MG PO SCH (21:22)
[2025-04-09] MEDS: PROVENTIL NEB TX 0.083% 2.5MG/ 3ML NEB PRN (21:33)
[2025-04-10 05:04] LABS: MEAN PLATELET VOLUME 7.6 fL (7.4-11.0); RED CELL DISTRIBUTION WIDTH 17.8 % (11.6-16.5)
[2025-04-10 05:13] LABS: COR CA(FOR HYPOALB) 9.7 mg/dL (8.5-10.1); CREATININE 1.01 mg/dL (0.70-1.30); eGFR NON BLACK RACES > 60 (>60)
--- NOTE | 2025-04-10 19:50 | RAD ---
EXAM: FOOT, RIGHT HISTORY: dehiscense s/p TMA right foot; BEST IMAGES POSSIBLE COMPARISON: None. TECHNIQUE: 2 views were submitted for interpretation. FINDINGS: Status post amputation of rays 1 through 5 at the level of the proximal diaphyses of the metatarsals. No evidence for acute osseous findings. No evidence for soft tissue gas. No evidence for radiopaque foreign body. Atherosclerotic calcifications are noted. IMPRESSION: Status post amputation of rays 1 through 5 at the level of the proximal diaphyses of the metatarsals. No evidence for acute osseous findings. No evidence for soft tissue gas. No evidence for radiopaque foreign body. Atherosclerotic calcifications are noted. THIS IS AN ELECTRONICALLY VERIFIED FINAL REPORT 04/10/2025 7:46 PM - Electronically signed by Mathew Naqvi DO
[2025-04-11 05:40] LABS: MEAN PLATELET VOLUME 7.5 fL (7.4-11.0); RED CELL DISTRIBUTION WIDTH 17.7 % (11.6-16.5)
[2025-04-11 05:58] LABS: COR CA(FOR HYPOALB) 9.6 mg/dL (8.5-10.1); COR NA(FOR HYPERGLY) 137 mmol/L (136-145); CREATININE 0.90 mg/dL (0.70-1.30); eGFR NON BLACK RACES > 60 (>60)
[2025-04-11] MEDS ORDERED: CONSULT PHARMACY - POTASSIUM & MAGNESIUM XX SCH (08:00)
[2025-04-11] MEDS: K-DUR TAB 20 MEQ PO SCH (08:44)
[2025-04-11] MEDS: MAG-OX TAB PO SCH (08:44)
[2025-04-11] MEDS ORDERED: PHARMACY CONSULT XX SCH (09:00)
[2025-04-11] MEDS: MILK OF MAGNESIA PO SCH (09:04)
--- NOTE | 2025-04-11 09:33 | NOTE.SOAP ---
Soap Note Note for Day of Date of Exam: 04/11/25 Subjective Data Subjective Data: Patient was seen and examined at bedside. Patient has a wound vac on the left BKA site and dressing noted to the right TMA site. Patient states his pain is controlled at this time. He denies shortness of breath and denies fevers at this time. Objective Data Objective Data: Right TMA site continues to have dehiscence, does not probe to bone and no purulence is encountered. Assessment Assessment: Dehiscence to right TMA site Plan Plan: - Cultures to right foot are growing preliminary gram negative rods at this time - Patient to go to OR on Friday 04/13 for debridement of TMA site with i njelena of [facility] - Did discuss external fixation vs TTT osteotomy with patient. Patient is denying both and understands the risks - Debridement on Friday showed poor bleeding, spoke with Dr. Pastrana and he is going to look at vascular studies for patient to the E. - Patient placed in a posterior splint to RLE today to reduce potential of contracture to the right leg - Patient can weightbear to right for transferring if safe - Further recommendations to follow surgical intervention Please contact me with any questions! Dr. Bridgett Wylie
--- NOTE | 2025-04-11 20:34 | NOTE.SOAP ---
Soap Note Note for Day of Date of Exam: 04/10/25 Subjective Data Subjective Data: S/p debridement of left below knee amputation dehiscience with closure and place wound vacuum, Vacuum holing suction and wound looks good Objective Data Temperature: 97.9 F Pulse Rate: 100 Respiratory Rate: 16 Blood Pressure: 103/52 O2 Sat by Pulse Oximetry: 97 Objective Data: as above , sutures in place right TMA, Will be examined by Podiatry Assessment Assessment: closure left BK stump and place wound vacuum. Plan Plan: Continue wound vacuum. Home with wound vac, arrange per Homehealth
--- NOTE | 2025-04-11 20:44 | NOTE.SOAP ---
Soap Note Note for Day of Date of Exam: 04/11/25 Subjective Data Subjective Data: POD # 2 after repair dehiscience of the left BK stump ( he fell on it and ruptured it open) Wound vacuum in place . Podiatry says he has early dehiscience of the right TMA growing Psuedomonas. Podiatry notes poor blood flow to right TMA Objective Data Temperature: 98.4 F Pulse Rate: 92 Respiratory Rate: 19 Blood Pressure: 119/59 O2 Sat by Pulse Oximetry: 97 Objective Data: Wound vacuum in place left BK stump and is working well. Assessment Assessment: Healing left BK stump . Worried about right foot blood supply. Plan Plan: NPO after midnight. Obtain CTA to evaluate right leg arterial flow first thing in AM and if compromised may need to be returned to the OR for additional arterial intervention of the right leg.
[2025-04-11] MEDS: COLACE CAP 100 MG PO SCH (21:00)
--- NOTE | 2025-04-11 21:47 | DR.OPNOTE ---
OP NOTE Pre-Op Diagnosis: Dehiscence of the left below-knee amputation wound, patient fell on it Procedure Date Date Of Procedure: 04/09/25 Procedure: PROCEDURE: Debridement and closure of dehiscence of left below-knee amputation incision after patient fell on it and placement of wound vacuum NARRATIVE: Patient taken to the operative suite and placed in the supine position. Patient given intravenous sedation supervised by myself. The entire left leg below knee open stump was prepped and draped in sterile fashion. Timeout for the procedure obtained. The rest of the frida from the below-knee amputation were removed. Patient had some early necrotic material was removed sharply with electrocautery and pickups. The wound was then irrigated with saline. Finally the 2 flaps closed with interrupted vertical mattress sutures of #2 Prolene. We then placed black foam over top of the incision. We then opened the medial thigh wound opened distally and small amount of fluid drained. This was packed with black foam as well. This covered with a adhesive sheet ov er top of the skin connecting to the incision in the thigh. We then placed a rim of black foam between these 2 incisions and covered with adhesive sheet In the midportion of the bridging foam we removed the adhesive sheet and connected to a track pad and placed this on on suction. Patient tolerated this well. Wound measured 12 x 8 x 6 cm. Patient taken to CCU in good condition. Type of Anesthesia: Local Anesthesia Comment: MAC anesthesia Findings: Dehiscence of the left foot amputation occurred when patient fell and it bursting it open. Wound measured 12 x 8 x 6 cm with some early necrotic tissue in the base of the wound requiring sharp debridement and irrigation. Subsequent placement of wound VAC and over the wound closed. Patient also had evidence of drainage from the incision on the medial aspect of the left thigh where we had tried to revise the femoral popliteal bypass this was also open and connected to the wound with a wound vacuum. Specimen/Pathology: none Type of Fluids Used:: Lactated Ringers EBL: minimal Complications:: none Needle/Sponge Count:: correct Disposition/Condition: Pt. tolerated procedure without difficulty. Taken to the CCU in stable condition.
[2025-04-12 06:02] LABS: MEAN PLATELET VOLUME 7.3 fL (7.4-11.0); RED CELL DISTRIBUTION WIDTH 17.9 % (11.6-16.5)
[2025-04-12 06:18] LABS: COR CA(FOR HYPOALB) 9.7 mg/dL (8.5-10.1); CREATININE 0.87 mg/dL (0.70-1.30); eGFR NON BLACK RACES > 60 (>60)
--- NOTE | 2025-04-12 09:00 | CT ---
EXAMINATION: CTA AORTA WITH RUNOFF HISTORY: ISCHEMIA RIGHT LEG; HTN SX: LEFT BKA COMPARISON: CTA abdomen and pelvis with bilateral extremity runoff 03/09/2025 TECHNIQUE: Contiguous axial CT images were acquired of the abdomen, pelvis, and bilateral extremities pre and post administration of intravenous contrast in order to perform a CT angiogram of the abdominal aorta, major arteries of the pelvis, and bilateral lower extremity runoff. Images are reviewed in the axial imaging plane with post processing thick slab MIP/3D volume images at a workstation.The above CT scan was done with automated exposure control and the mA and kV was adjusted to obtain quality images according to patient size. FINDINGS: There is opacification of the abdominal aorta, celiac artery, SMA, APRIL, right and left main renal arteries. Extensive calcified vascular plaque along these vessels. There is opacification of the common iliac, internal and external iliac arteries bilaterally with extensive calcified vascular plaque along these vessels with segments of moderate to severe arterial stenoses. There is opacification of the femorofemoral bypass graft. Left lower extremity: Suspected interval complete occlusion of the jump graft from the left common femoral artery to the left popliteal artery. Chronic complete occlusion of the left SFA. Enhancement of the proximal peroneal artery and proximal anterior tibial artery containing scattered vascular plaque with nonvisualization of the posterior tibial artery. Diffuse extensive edema of the soft tissues throughout the left lower extremity status post chronic BKA. Right lower extremity: Opacification of the right common femoral artery, and superficial femoral artery with scattered arterial vascular plaque and segments of moderate to severe arterial stenoses within these vessels. There is a patent arterial stent right distal superficial femoral artery to the popliteal artery. There is opacification of the right popliteal artery, peroneal and posterior tibial arteries. Scattered arterial vascular calcifications with moderate to severe arterial stenoses within these vessels. The right anterior tibial artery may be occluded proximally with reconstitution via collaterals. Heavily calcified arterial vascular plaque within the arteries below the right knee significantly limiting evaluation of the vessels regarding patency. Diffuse extensive edema of the soft tissues throughout the right lower extremity. IMPRESSION: Suspected interval complete occlusion of the jump graft from the left common femoral artery to the left popliteal artery. The femorofemoral bypass graft is patent. Patent arterial stent right distal SFA to the popliteal artery. Heavily calcified arterial vascular plaque within the arteries below the right knee significantly limiting evaluation of the vessels regarding patency. THIS IS AN ELECTRONICALLY VERIFIED FINAL REPORT 04/12/2025 8:57 AM - Electronically signed by Judy Zuniga MD
[2025-04-12] MEDS: REGLAN INJ 10 MG VIAL ONE (09:43)
[2025-04-12] MEDS: OFIRMEV IV 1000 MG VIAL 1,000 MG/100 ML VIAL IV ONE (09:43)
[2025-04-12] MEDS: DIPRIVAN VIAL 20 ML ONE ×2 (09:43→11:14)
[2025-04-12] MEDS: ZOFRAN INJ 4 MG VIAL ONE (09:43)
[2025-04-12] MEDS: HEPARIN SODIUM INJ 5000 UNITS ONE (09:43)
[2025-04-12] MEDS: VERSED ONE (09:44)
[2025-04-12] MEDS: KETAMINE HCL ONE (09:44)
[2025-04-12] MEDS: FENTANYL VIAL INJ 100 mcg ONE (09:44)
[2025-04-12] MEDS: XYLOCAINE 2 % (PLAIN) ONE (09:50)
[2025-04-12] MEDS: NS 1,000 ML IV 1,000 ML ONE (10:20)
[2025-04-12] MEDS: PEPCID 20 MG VIAL ONE (10:23)
[2025-04-12] MEDS: ZOFRAN INJ 4 MG VIAL IVP PRN (10:28)
[2025-04-12] MEDS: VERSED IVP PRN (10:28)
[2025-04-12] MEDS: PEPCID 20 MG VIAL IVP PRN (10:28)
[2025-04-12] MEDS: REGLAN INJ 10 MG VIAL IVP PRN (10:28)
[2025-04-12] MEDS: BETADINE SOLN ONE (10:29)
[2025-04-12] MEDS: NS 1,000 ML IV 600 ML IV PRN (10:30)
[2025-04-12] MEDS: DIPRIVAN VIAL 320 ML IVP PRN (10:44)
[2025-04-12] MEDS: PRECEDEX INJ VIAL IVP PRN (10:44)
[2025-04-12] MEDS: KETAMINE HCL IVP PRN (10:44)
[2025-04-12] MEDS ORDERED: XYLOCAINE 2 % (PLAIN) PRN (10:44)
[2025-04-12] MEDS: OFIRMEV IV 1000 MG VIAL 1,000 MG/100 ML VIAL IV PRN (10:54)
[2025-04-12] MEDS: ANCEF VIAL 1 GRAM ONE (11:09)
[2025-04-12] MEDS: ANCEF VIAL 1 GRAM IV PRN (11:10)
[2025-04-12] MEDS: NS 100 ML IV 100 ML ONE (11:10)
[2025-04-12] MEDS: VISIPAQUE 100 ML ONE (11:17)
[2025-04-12] MEDS: VISIPAQUE 50 ML ONE (11:17)
[2025-04-12] MEDS: MARCAINE 0.5% ONE (11:17)
[2025-04-12] MEDS: HEPARIN 1,000 UNIT/500 ML-NS 3,000 UNIT/1,500 ML IV.SOLN ONE (11:17)
[2025-04-12] MEDS ORDERED: HEPARIN SODIUM INJ 5000 UNITS IVP PRN (11:21)
[2025-04-12] MEDS: PROTAMINE SULFATE 50 MG VIAL ONE (11:28)
[2025-04-12] MEDS: FENTANYL VIAL INJ 100 mcg IVP PRN (11:28)
[2025-04-12] MEDS: PROTAMINE SULFATE 50 MG VIAL IVP PRN (11:36)
--- NOTE | 2025-04-12 15:12 | OR.IMMED ---
IMMEDIATE POST-OP NOTE Immediate Post-Op Note Date of surgery/procedure: 04/12/25 Pre-Op Diagnosis: Critical ischemia right leg, wound to left below-knee amputation stump Post-Op Diagnosis: same, see findings Procedure: Arteriogram of the right lower extremity, stenting of the proximal right superficial femoral artery, change left below-knee amputation stump wound vacuum Description of Procedure: dictated Surgeon/Credit Assistant: Chidi Pastrana MD, FACS Findings: Severe stenosis at takeoff of the right superficial femoral artery, only runoff is the peroneal artery which reconstitutes the posterior tibial artery at the ankle, wound to left below-knee stump is stable in appearance Estimated Blood Loss: < 50 cc Complications: none Discharge Progress Notes: Patient returned to the floor.
--- NOTE | 2025-04-12 19:40 | NOTE.SOAP ---
Soap Note Note for Day of Date of Exam: 04/12/25 Subjective Data Subjective Data: Patient status post stenting of the right proximal superficial artery today and clinically is doing well. I am more concerned with the fact the patient had made several comments to nursing staff on the floor and in the operating room that he "just let me ". He denies suicidal ideation. Nurses are aware of this. I think his main problem is is that he wants to be at home and he thought this would be a short hospital stay. Objective Data Temperature: 97.8 F Pulse Rate: 86 Respiratory Rate: 19 Blood Pressure: 106/58 O2 Sat by Pulse Oximetry: 100 Objective Data: [place] in the femoral-femoral graft without hematoma. Wound VAC in the left foot working well. Right foot with splint in place but denies any significant rest pain. Assessment Assessment: Status post revascularization of the right leg with stenting of the proximal right superficial femoral artery and changes of wound vacuum of the left below-knee amputation site Plan Plan: Podiatry is going to debride the area of dehiscence of the right foot tomorrow. Hopefully can go home after that. Will hold anticoagulation for now but begin his aspirin back.
[2025-04-13 00:05] VITALS: O2SAT 98
[2025-04-13] MEDS: HIBICLENS WASH EXT ONE (04:02)
[2025-04-13 05:49] LABS: MEAN PLATELET VOLUME 7.6 fL (7.4-11.0); RED CELL DISTRIBUTION WIDTH 17.5 % (11.6-16.5)
[2025-04-13 06:08] LABS: COR CA(FOR HYPOALB) 9.7 mg/dL (8.5-10.1); COR NA(FOR HYPERGLY) 137 mmol/L (136-145); CREATININE 1.02 mg/dL (0.70-1.30); eGFR NON BLACK RACES > 60 (>60)
[2025-04-13] MEDS: NS 100 ML IV 100 ML ONE (07:15)
[2025-04-13] MEDS: OMNIPAQUE 350 mg/mL 100 mL BTL 100 ML ONE (07:16)
[2025-04-13] MEDS: OMNIPAQUE 350 mg/mL 50 mL BTL 50 ML ONE (07:16)
[2025-04-13] MEDS ORDERED: PLAVIX PO SCH (09:00)
[2025-04-13 10:06] VITALS: BP 119/63; PULSE 105; RESP 20; TEMP 98
[2025-04-13] MEDS: FENTANYL VIAL INJ 100 mcg ONE (10:06)
[2025-04-13] MEDS: ZOFRAN INJ 4 MG VIAL ONE (10:07)
[2025-04-13] MEDS: OFIRMEV IV 1000 MG VIAL 0 MG/0 ML VIAL IV ONE (10:07)
[2025-04-13] MEDS: DIPRIVAN VIAL 0 ML ONE (10:07)
[2025-04-13] MEDS: VERSED ONE (10:07)
--- NOTE | 2025-04-13 10:44 | MD.NOTE ---
Provider Note Note Note: Received a phone call this morning that patient was signing paperwork to leave AMA. Did ask to speak with him, was on my way to the hospital to perform surgery to his right TMA site. Patient refused to speak with me. Patient cultures came back positive for P. aeruginosa and Proteus mirabilis to the right TMA site. Will try to contact patient to start on antibiotic Patient needs to follow up outpatient with our office as his right TMA site is infected and dehiscence is noted. Patient was reported to have suicidal ideations yesterday and [facility] was consulted- I spoke to case management about follow up with them outpatient and [facility] will coordinate this Patient will require a debridement- healing for stump site is poor if infection is not controlled appropriately. Will attempt to contact [facility] outpatient Please contact with any questions Dr. Bridgett Wylie
--- NOTE | 2025-04-13 17:52 | W.DIS.FURT ---
Summary of Discharge Discharge Summary of Date Date of Exam: 04/13/25 Admission Date Date of Admission: 04/08/25 Admission Diagnosis Hospital Course: This is a 69-year-old male with significant bilateral peripheral vascular disease who has had right lower extremity arterial invention and subsequent right transmetatarsal amputation still with sutures in place. He had multiple attempts to revascularize the left leg but ultimately failed and he had a left below-knee amputation approxiimately 1 week previously. Unfortunately he fell landed on the stump and broke it apart. He was admitted on April 08 and placed on IV antibiotics. The next day he was taken to the operating room where we debrided the wound and closed it loosely and applied a wound vacuum. Podiatry saw him and felt that he had compromise of the vascular flow of the right leg and that he had evidence of possible osteomyelitis He had culture swabs and grew Pseudomonas. He had CT angiogram showing significant disease of the right superficial femoral artery below the takeoff of the femoral-femoral graft. He was taken to the operating suite on April 11 where he underwent on table arteriogram showing severe stenosis of the takeoff of the right superficial femoral artery with runoff via the peroneal artery with refilling of the posterior tibial at the ankle. He underwent stenting of the proximal right superficial femoral artery. He was supposed to be going to the operating room for podiatry to remove his sutures of the right foot and placed an external fixator and drain any pus of the right foot . Unfortunately he signed out AGAINST MEDICAL ADVICE. We do have him set up for home health to change the wound VAC in the left leg. I will try to get an appointment for him to see me in the office. Podiatry did write him a prescription for ciprofloxacin 500 mg twice daily. Vital Signs: Vital Signs (72 hours) 04/10/25 17:47 04/10/25 19:00 04/10/25 20:00 Temperature 97.9 F Pulse Rate 100 H Pulse Rate [Bilateral Radial] Respiratory Rate 18 16 Blood Pressure 103/55 Blood Pressure [Left Arm] O2 Sat by Pulse Oximetry 97 Oxygen Delivery Method Room Air Room Air Oxygen Flow Rate FIO2% 04/10/25 21:23 04/10/25 21:53 04/11/25 00:00 Temperature 98.7 F Pulse Rate 96 H Pulse Rate [Bilateral Radial] Respiratory Rate 19 19 16 Blood Pressure 103/61 Blood Pressure [Left Arm] O2 Sat by Pulse Oximetry 97 Oxygen Delivery Method Room Air Oxygen Flow Rate FIO2% 04/11/25 04:00 04/11/25 05:08 04/11/25 05:37 Temperature 98.0 F Pulse Rate 96 H Pulse Rate [Bilateral Radial] Respiratory Rate 16 19 19 Blood Pressure 108/63 Blood Pressure [Left Arm] O2 Sat by Pulse Oximetry 97 Oxygen Delivery Method Room Air Oxygen Flow Rate FIO2% 04/11/25 07:00 04/11/25 07:37 04/11/25 07:42 Temperature 98.4 F Pulse Rate 62 Pulse Rate [Bilateral Radial] Respiratory Rate 19 Blood Pressure 110/56 Blood Pressure [Left Arm] O2 Sat by Pulse Oximetry 93 L Oxygen Delivery Method Room Air Room Air Room Air Oxygen Flow Rate FIO2% 04/11/25 09:04 04/11/25 09:34 04/11/25 12:00 Temperature 98.2 F Pulse Rate 89 Pulse Rate [Bilateral Radial] Respiratory Rate 20 20 16 Blood Pressure 112/56 Blood Pressure [Left Arm] O2 Sat by Pulse Oximetry 96 Oxygen Delivery Method Room Air Oxygen Flow Rate FIO2% 04/11/25 13:19 04/11/25 13:49 04/11/25 16:00 Temperature 97.8 F Pulse Rate 95 H Pulse Rate [Bilateral Radial] Respiratory Rate 20 20 20 Blood Pressure 99/48 Blood Pressure [Left Arm] O2 Sat by Pulse Oximetry 98 Oxygen Delivery Method Room Air Oxygen Flow Rate FIO2% 04/11/25 19:00 04/11/25 19:42 04/11/25 19:55 Temperature 98.4 F Pulse Rate 92 H Pulse Rate [Bilateral Radial] Respiratory Rate 20 19 Blood Pressure 119/59 Blood Pressure [Left Arm] O2 Sat by Pulse Oximetry 97 Oxygen Delivery Method Room Air Oxygen Flow Rate FIO2% 04/11/25 20:12 04/11/25 20:34 04/11/25 20:44 Temperature 97.9 F 98.4 F Pulse Rate 100 H 92 H Pulse Rate [Bilateral Radial] Respiratory Rate 18 16 19 Blood Pressure 103/52 119/59 Blood Pressure [Left Arm] O2 Sat by Pulse Oximetry 97 97 Oxygen Delivery Method Oxygen Flow Rate FIO2% 04/11/25 23:45 04/12/25 00:00 04/12/25 00:15 Temperature 98.4 F Pulse Rate 90 Pulse Rate [Bilateral Radial] Respiratory Rate 20 18 20 Blood Pressure 117/57 Blood Pressure [Left Arm] O2 Sat by Pulse Oximetry 95 Oxygen Delivery Method Room Air Oxygen Flow Rate FIO2% 04/12/25 04:00 04/12/25 05:03 04/12/25 05:33 Temperature 98 F Pulse Rate 95 H Pulse Rate [Bilateral Radial] Respiratory Rate 19 19 19 Blood Pressure 125/72 Blood Pressure [Left Arm] O2 Sat by Pulse Oximetry 98 Oxygen Delivery Method Room Air Oxygen Flow Rate FIO2% 04/12/25 07:00 04/12/25 08:00 04/12/25 08:05 Temperature 98.4 F Pulse Rate 91 H Pulse Rate [Bilateral Radial] Respiratory Rate 19 Blood Pressure 123/70 Blood Pressure [Left Arm] O2 Sat by Pulse Oximetry 96 Oxygen Delivery Method Room Air Room Air Room Air Oxygen Flow Rate FIO2% 04/12/25 10:15 04/12/25 12:00 04/12/25 12:05 Temperature 97.7 F 97.5 F L 97.5 F L Pulse Rate 93 H 81 Pulse Rate [Bilateral Radial] 81 Respiratory Rate 17 16 16 Blood Pressure 124/69 108/61 Blood Pressure [Left Arm] 108/61 O2 Sat by Pulse Oximetry 100 96 96 Oxygen Delivery Method Room Air Nasal Cannula Oxygen Flow Rate 2 FIO2% 04/12/25 12:20 04/12/25 12:35 04/12/25 12:50 Temperature 97.3 F L 97 F L 97.4 F L Pulse Rate Pulse Rate [Bilateral Radial] 81 81 82 Respiratory Rate 17 17 16 Blood Pressure Blood Pressure [Left Arm] 106/63 110/67 111/67 O2 Sat by Pulse Oximetry 97 96 98 Oxygen Delivery Method Oxygen Flow Rate FIO2% 04/12/25 13:03 04/12/25 13:05 04/12/25 14:05 Temperature 97.9 F 97.3 F L Pulse Rate Pulse Rate [Bilateral Radial] 81 86 Respiratory Rate 16 16 Blood Pressure Blood Pressure [Left Arm] 110/65 112/68 O2 Sat by Pulse Oximetry 94 L 98 Oxygen Delivery Method Nasal Cannula Oxygen Flow Rate 2 FIO2% 28 04/12/25 15:00 04/12/25 15:03 04/12/25 15:38 Temperature 97.8 F 97.8 F Pulse Rate 86 82 Pulse Rate [Bilateral Radial] 82 Respiratory Rate 16 16 Blood Pressure 112/68 Blood Pressure [Left Arm] 112/68 O2 Sat by Pulse Oximetry 99 100 100 Oxygen Delivery Method Nasal Cannula Oxygen Flow Rate 2 FIO2% 04/12/25 16:05 04/12/25 19:00 04/12/25 19:40 Temperature 97.8 F 97.8 F Pulse Rate 86 Pulse Rate [Bilateral Radial] 86 Respiratory Rate 19 19 Blood Pressure 106/58 Blood Pressure [Left Arm] 106/58 O2 Sat by Pulse Oximetry 100 100 Oxygen Delivery Method Room Air Oxygen Flow Rate FIO2% 04/12/25 23:10 04/12/25 23:40 04/13/25 00:00 Temperature 97.9 F Pulse Rate 82 Pulse Rate [Bilateral Radial] Respiratory Rate 20 17 17 Blood Pressure 114/56 Blood Pressure [Left Arm] O2 Sat by Pulse Oximetry 98 Oxygen Delivery Method Room Air Oxygen Flow Rate FIO2% 04/13/25 03:48 04/13/25 04:00 04/13/25 07:00 Temperature 98.3 F Pulse Rate 95 H Pulse Rate [Bilateral Radial] Respiratory Rate 18 18 Blood Pressure 123/64 Blood Pressure [Left Arm] O2 Sat by Pulse Oximetry 98 Oxygen Delivery Method Room Air Room Air Oxygen Flow Rate FIO2% 04/13/25 08:00 04/13/25 09:32 Temperature 98.0 F Pulse Rate 105 H Pulse Rate [Bilateral Radial] Respiratory Rate 20 Blood Pressure 119/63 Blood Pressure [Left Arm] O2 Sat by Pulse Oximetry 98 Oxygen Delivery Method Room Air Room Air Oxygen Flow Rate FIO2% Labs: Laboratory Last Values WBC 5.7 X10^3/uL (3.6-10.0) 04/13/25 05:10 RBC 2.62 X10^6/uL (4.7-6.0) L 04/13/25 05:10 Hgb 8.0 g/dL (13.5-18.0) L 04/13/25 05:10 Hct 24.2 % (42.0-54.0) L 04/13/25 05:10 MCV 92.4 fL (80.0-100.0) 04/13/25 05:10 MCH 30.7 pg (27.0-34.0) 04/13/25 05:10 MCHC 33.2 g/dL (33.0-35.0) 04/13/25 05:10 RDW 17.5 % (11.6-16.5) H 04/13/25 05:10 Plt Count 339 X10^3/uL (150.0-450.0) 04/13/25 05:10 MPV 7.6 fL (7.4-11.0) 04/13/25 05:10 Neut % (Auto) 65.8 % (42.0-75.0) 04/13/25 05:10 Lymph % (Auto) 20.5 % (21.0-51.0) L 04/13/25 05:10 Ed[place]ds % (Auto) 11.8 % (0.0-13.0) 04/13/25 05:10 Eos % (Auto) 1.1 % (0.9-2.9) 04/13/25 05:10 Baso % (Auto) 0.8 % (0.2-1.0) 04/13/25 05:10 Neut # (Auto) 3.8 x10^3/uL (2.2-4.8) 04/13/25 05:10 Lymph # (Auto) 1.2 X10^3/uL (1.3-2.9) L 04/13/25 05:10 [place] # (Auto) 0.7 x10^3/uL (0.3-0.8) 04/13/25 05:10 Eos # (Auto) 0.1 x10^3/uL (0.0-0.2) 04/13/25 05:10 Baso # (Auto) 0.0 X10^3/uL (0.0-0.1) 04/13/25 05:10 Absolute Nucleated RBC 0.4 /100WBC 04/13/25 05:10 Sodium 136 mmol/L (136-145) 04/13/25 05:10 Corrected Sodium 137 mmol/L (136-145) 04/13/25 05:10 Potassium 4.2 mmol/L (3.5-5.1) 04/13/25 05:10 Chloride 101 mmol/L (98-107) 04/13/25 05:10 Carbon Dioxide 27.0 mmol/L (21-32) 04/13/25 05:10 BUN 8 mg/dL (7-18) 04/13/25 05:10 Creatinine 1.02 mg/dL (0.70-1.30) 04/13/25 05:10 Est GFR (MDRD) Af Amer > 60 (>60) 04/13/25 05:10 Est GFR (MDRD) Non-Af > 60 (>60) 04/13/25 05:10 Glucose 130 mg/dL (65-99) H 04/13/25 05:10 Calcium 8.3 mg/dL (8.5-10.1) L 04/13/25 05:10 Corrected Calcium 9.7 mg/dL (8.5-10.1) 04/13/25 05:10 Magnesium 1.8 mg/dL (2.0-2.9) L 04/13/25 05:10 Total Bilirubin 0.60 mg/dL (0.2-1.0) 04/13/25 05:10 AST 14 Units/L (15-37) L 04/13/25 05:10 ALT 13 Units/L (12-78) 04/13/25 05:10 Alkaline Phosphatase 82 Units/L (46-116) 04/13/25 05:10 Total Protein 6.8 g/dL (6.4-8.2) 04/13/25 05:10 Albumin 2.2 g/dL (3.4-5.0) L 04/13/25 05:10 Globulin 4.6 g/dL (2.5-4.5) H 04/13/25 05:10 Albumin/Globulin Ratio 0.5 Ratio (1.1-2.1) L 04/13/25 05:10 Blood Type AB NEGATIVE 04/12/25 10:07 Antibody Screen Negative 04/12/25 10:07 Reason For Visit: LBKA STUMP DEHISCENCE Discharge Date Discharge Date: 04/13/25 Discharge Diagnosis All Active Problems (Updated 04/09/25 @ 09:33 by Bridgett Wylie) Dehiscence of amputation stump of right lower extremity (Acute) Gangrene due to arterial insufficiency (Acute) Personal history of lung cancer (Acute) Essential (primary) hypertension (Acute) Congestive heart disease (Acute) Atherosclerosis of [place] arteries of extremities with rest pain, right leg (Acute) Atherosclerosis of [place] arteries of extremities with rest pain, left leg (Acute) Plan of Treatment: Continue with present treatment and follow up plan. Pt is to keep follow up appointment as instructed and take medications as ordered. Discharge Medications Discharge Medications: pregabalin (From Lyrica) Adverse Reaction (Severe, Verified 03/08/25 18:07) gabapentin Adverse Reaction (Intermediate, Verified 03/08/25 18:07) CONTINUE taking the following medications albuterol sulfate 2.5 mg/3 mL (0.083 %) solution for nebulization 2.5 mg continuous nebulization Q6H PRN 04/08/25 [History] tramadol 50 mg tablet 50 mg PO Q4H PRN 04/08/25 [History] see below for accutate med list Discharge Disposition Assessment: see hospital course Discharge Plan Discharge Plan Hospital Course: This is a 69-year-old male with significant bilateral peripheral vascular disease who has had right lower extremity arterial invention and subsequent right transmetatarsal amputation still with sutures in place. He had multiple attempts to revascularize the left leg but ultimately failed and he had a left below-knee amputation approxiimately 1 week previously. Unfortunately he fell landed on the stump and broke it apart. He was admitted on April 08 and placed on IV antibiotics. The next day he was taken to the operating room where we debrided the wound and closed it loosely and applied a wound vacuum. Podiatry saw him and felt that he had compromise of the vascular flow of the right leg and that he had evidence of possible osteomyelitis He had culture swabs and grew Pseudomonas. He had CT angiogram showing significant disease of the right superficial femoral artery below the takeoff of the femoral-femoral graft. He was taken to the operating suite on April 11 where he underwent on table arteriogram showing severe stenosis of the takeoff of the right superficial femoral artery with runoff via the peroneal artery with refilling of the posterior tibial at the ankle. He underwent stenting of the proximal right superficial femoral artery. He was supposed to be going to the operating room for podiatry to remove his sutures of the right foot and placed an external fixator and drain any pus of the right foot . Unfortunately he signed out AGAINST MEDICAL ADVICE. We do have him set up for home health to change the wound VAC in the left leg. I will try to get an appointment for him to see me in the office. Podiatry did write him a prescription for ciprofloxacin 500 mg twice daily. Patient Disposition: AGAINST MEDICAL ADVICE Condition: Stable Health Concerns: Post Hospitalization: new medications and changes needed to prevent readmission or further decline. Pt educated and given instructions on all concerns. Care Plan Goals: Problem: Pain/Alteration in Comfort Goal: Improve/ Resolve Pain; Achieve Pain Tolerance Instructions: Take pain medications as prescribed. Contact your primary care provider if your pain is unrelieved or worsens. Follow up with primary care provider as directed. Plan of Treatment: Continue with present treatment and follow up plan. Pt is to keep follow up appointment as instructed and take medications as ordered. Assessment: see hospital course Prescription drug monitoring program results: PDMP was not reviewed Prescriptions: New ciprofloxacin HCl [Cipro] 500 mg tablet 500 mg PO BID Qty: 14 0RF Continued clopidogrel [Plavix] 75 mg Tablet 75 mg PO DAILY spironolactone 25 mg Tablet 25 mg PO DAILY albuterol sulfate 2.5 mg /3 mL (0.083 %) Solution For Nebulization 2.5 mg continuous nebulization Q6H PRN tramadol 50 mg Tablet 50 mg PO Q4H PRN carvedilol 12.5 mg Tablet 12.5 mg PO BID Rx Instructions: must administer with a meal/food oxycodone-acetaminophen [Percocet] 5-325 mg tablet 1 tab PO Q6H MDD 4 PRNQty: 30 0RF Orders to Discharge Patient Discharge Orders: Discharge (Routine); Ordered 04/13/25 Ordered By: Cisco Pastrana Follow ups/Referrals Follow ups/Referrals: FREDDIE STARKEY [STAFF PHYSICIAN, Unknown] - 1 WEEK Cisco Pastrana [STAFF PHYSICIAN, Unknown] - 04/20/25 10:00 am Instructions Instructions: Wound Dehiscence, [id number] Stand Alone Forms: Excuse From Work or School, Find Help Web Site, Post Hospital Follow Up Care Print Language: SAMI
--- NOTE | 2025-04-16 17:30 | DR.OPNOTE ---
OP NOTE Pre-Op Diagnosis: Critical ischemia right leg Post-Op Diagnosis: Same, see findings below Procedure Date Date Of Procedure: 04/12/25 Procedure: PROCEDURE: Diagnostic arteriogram right leg, stenting takeoff of right superficial femoral artery NARRATIVE: The patient was taken to the operative suite and placed in the supine position. The left groin , entire lower abdomen and entire right leg were prepped and draped in sterile fashion. Ultrasound used to identify the femoro- femoral graft on the left side of the lower abdomen and ultrasound used to guide puncture of the femoral-femoral graft with a 16-gauge needle after placing 0.5% Marcaine. 0.012 inch guidewire placed. Incision made over the guidewire and a micro sheath placed over the guidewire into the femoral-femoral graft. Arteriogram carried out showing severe stenosis of the takeoff of the right superficial femoral artery. The small wire exchanged for a 0.035 inch wire which was taken all the way down the leg and the micro sheath exchanged for a 7 [place] vascular sheath. Arteriogram carried out of the right leg showing only severe stenosis at the takeoff of superficial artery with good flow throughout the femoral superficial artery otherwise and popliteal artery with one-vessel runoff follow-up via the peroneal artery and re-constitution of the right posterior tibial artery at the ankle . Over the 0.035 inch wire we placed a 7 mm x 80 mm [employer] Tali drug-eluting stent and expanded with a 6 mm balloon across the severe stenosis of the proximal right superficial femoral artery. Repeat arteriogram showed excellent result. Pursestring suture of 2-0 silk placed around sheath in the femorofemoral graft as the graft removed the pursestring tied in position and then pressure held this for 10 minutes obtain hemostasis. Dressing applied. Patient taken to the floor in good condition. Type of Anesthesia: Local (0.5% Marcaine) Anesthesia Comment: plus MAC Findings: Severe stenosis at the takeoff of the right superficial femoral artery Type of Fluids Used:: Lactated Ringers Total Amount of Fluid Infused:: 600cc Urine output: 200cc EBL: < 50 cc Hardware: Tali 7x80 mm drug eluiting stent Complications:: none Needle/Sponge Count:: correct Disposition/Condition: Pt. tolerated procedure without difficulty. Taken to [facility] in stable condition.
== END 2025-04-13 10:00 | disposition left against medical advice (07) | DRG 464 ==
LOC: ICU 10:10 → MED/SURG 04-10 16:55 → OBS 04-13 09:46
PROVIDERS: ADMIT Surgery; ATTEND Surgery
PROC: WOUNDCL (2025-04-09 10:10)
DX: B96.4 Proteus (mirabilis) (morganii) as the cause of diseases classified elsewhere; W18.39XA Other fall on same level, initial encounter; Z59.869 Financial insecurity, unspecified; B96.89 Other specified bacterial agents as the cause of diseases classified elsewhere; J44.9 Chronic obstructive pulmonary disease, unspecified; Y92.9 Unspecified place or not applicable; Z85.118 Personal history of other malignant neoplasm of bronchus and lung; T87.81 Dehiscence of amputation stump; Z66 Do not resuscitate; I70.223 Atherosclerosis of native arteries of extremities with rest pain, bilateral legs; Z53.29 Procedure and treatment not carried out because of patient's decision for other reasons; Z16.29 Resistance to other single specified antibiotic; I50.9 Heart failure, unspecified; B96.5 Pseudomonas (aeruginosa) (mallei) (pseudomallei) as the cause of diseases classified elsewhere; I11.0 Hypertensive heart disease with heart failure

== ENCOUNTER 2025-04-22 09:23 | Inpatient (IN) ==
[2025-04-22] MEDS ORDERED: XYLOCAINE 2 % (PLAIN) ONE ×2 (09:37)
[2025-04-22] MEDS ORDERED: PRECEDEX INJ VIAL ONE (09:37)
[2025-04-22] MEDS ORDERED: ULTANE GAS IN ONE (09:37)
[2025-04-22] MEDS ORDERED: KETAMINE HCL ONE ×2 (09:37)
[2025-04-22] MEDS ORDERED: PROVENTIL NEB TX 0.083% 2.5MG/ 3ML NEB PRN ×2 (10:23→10:54)
[2025-04-22 10:41] VITALS: BMI 24.8
[2025-04-22 11:40] LABS: MEAN PLATELET VOLUME 7.8 fL (7.4-11.0); RED CELL DISTRIBUTION WIDTH 18.4 % (11.6-16.5)
[2025-04-22 11:57] LABS: COR CA(FOR HYPOALB) 9.7 mg/dL (8.5-10.1); CREATININE 0.85 mg/dL (0.70-1.30); eGFR NON BLACK RACES > 60 (>60)
[2025-04-22] MEDS: ZOSYN VIAL 3.375 GRAMS 3.375 G in NS 100 ML IV 100 ML IV SCH (12:02)
[2025-04-22] MEDS: NS 250 ML IV 25 ML IV PRN (12:02)
[2025-04-22] MEDS: LR 1,000 ML IV 1,000 ML IV SCH (12:02)
[2025-04-22] MEDS: PERCOCET TAB 5/325 MG PO PRN (12:58)
--- NOTE | 2025-04-22 13:22 | DR.H&P ---
H&P History & Physical for Day of: H&P Date: 04/22/25 Chief Complaint Chief Complaint: draining left below knee amputation stump History of Present Illness History of Present Illness: This is a 69-year old male who was supposed to be admitted yesterday but did not show up. He has presented now for admission. He has had bilateral lower extremity arterial interventions. After right leg arterial invention he underwent transmetatarsal amputation which is being followed by Dr. Lewis of podiatry. He had failed revision of the left femoral- popliteal bypass graft and unfortunately required left below-knee amputation. He fell onto the stump and broke it apart and was admitted on April 08, 2025 where he underwent washout, IV antibiotics and subsequent closure with a wound VAC in. Unfortunately he signed out AGAINST MEDICAL ADVICE. Home health has not been applying the wound VAC onto the stump as directed. They have only been applying it to the incision in the medial left thigh. He presented to Dr. Lewis's office with significant drainage and has a cellulitis of the left below- knee stump. Past Medical History Past Medical History: CHF, COPD and Hypertension Additional Medical History: History of right lung cancer resected thorocoscopically . No adjuvant treatment given or required. Past Surgical History Surgical History: Angioplasty/Stents, Ortho Surgery and Tonsillectomy Family History Family Medical History: Diabetes Mellitus and Heart Failure Social History Does patient currently use any type of tobacco product: No Have you used tobacco products in the last 12 months: No How many years tobacco product used: 50 Does any household member use tobacco: No Alcohol Use: None Medications Home Medications: Home Medications Medication Instructions Recorded Confirmed Type carvedilol 12.5 mg tablet 12.5 mg PO BID 11/29/2404/13 History clopidogrel 75 mg tablet (Plavix) 75 mg PO DAILY 03/0804/22/25 History spironolactone 25 mg tablet 25 mg PO DAILY 03/24/25 History albuterol sulfate 2.5 mg/3 mL 2.5 mg continuous nebuli zation Q6H 04/08/25 04/22/25 History (0.083 %) solution for nebulization PRN tramadol 50 mg tablet 50 mg PO Q4H PRN 04/08/25 History Allergies Allergies Allergy/AdvReac Type Severity Reaction Status Date / Time pregabalin (From Lyrica) AdvReac Severe Verified 03/08/25 18:07 gabapentin AdvReac Intermediate Verified 03/08/25 18:07 Labs 04/22/25 11:15 04/22/25 11:15 Review of Systems Constitutional: See HPI Eyes: No Symptoms Reported ENT: No Symptoms Reported Respiratory: No Symptoms Reported Cardiovascular: No Symptoms Reported Gastrointestinal: No Symptoms Reported Genitourinary: No Symptoms Reported Musculoskeletal: See HPI Skin: See HPI Neurological: No Symptoms Reported Physical Exam Vital Signs: Vital Signs Temperature 98.3 F Pulse Rate [Radial] 77 Respiratory Rate 20 Blood Pressure [Left Arm] 114/59 O2 Sat by Pulse Oximetry 98 Oriented: Normal, Time and Person Eyes: Normal Ear: Normal Nose: Normal Throat: Normal Respiratory: Clear Throughout Cardiovascular: Normal : Normal Auscultation: Bowel Sounds: Normal Tenderness: Normal Skin: Wound (Partial separation of the wound of the left below-knee stump with gangrenous changes the posterior flap. I can see bone of the bottom of the wound. No obvious significant cellulitis at this time right transmetatarsal amputation site with evidence of possible ischemic around the edges. ) Psychiatric: Depression Mood Description: Apathetic and Depressed Affect: Depressed Speech Pattern: Clear and Appropriate Assessment/Plan (1) Dehiscence of amputation stump of right lower extremity: Narrative Support Text: Will obtain labs and placed on IV antibiotics. Most likely will require patient to above-knee amputation Status: Acute (2) Gangrene due to arterial insufficiency: Narrative Support Text: See above Status: Acute (3) Personal history of lung cancer: Status: Acute Plan: has been treated (4) Essential (primary) hypertension: Status: Acute Plan: home medications (5) Congestive heart disease: Status: Acute Plan: home medications (6) Atherosclerosis of [place] arteries of extremities with rest pain, right leg: Status: Acute (7) Atherosclerosis of [place] arteries of extremities with rest pain, left leg: Status: Acute Plan: Dr. Lewis will plan debridement of the right TMA Review H&P Reviewed: Yes Patient was examined?: Yes
[2025-04-22] MEDS: COREG TAB 12.5 MG PO SCH (20:45)
[2025-04-23 05:15] LABS: MEAN PLATELET VOLUME 7.8 fL (7.4-11.0); RED CELL DISTRIBUTION WIDTH 18.1 % (11.6-16.5)
[2025-04-23 05:26] LABS: COR CA(FOR HYPOALB) 9.5 mg/dL (8.5-10.1); COR NA(FOR HYPERGLY) 134 mmol/L (136-145); CREATININE 0.91 mg/dL (0.70-1.30); eGFR NON BLACK RACES > 60 (>60)
[2025-04-23] MEDS: ALDACTONE TAB 25 MG PO SCH (09:03)
[2025-04-23] MEDS: PROTONIX TAB 40 MG PO SCH (09:03)
[2025-04-23] MEDS: LOVENOX INJ 40 MG SYR SC SCH (09:04)
[2025-04-23] MEDS ORDERED: DILAUDID INJ ONE (14:07)
[2025-04-23] MEDS: DILAUDID INJ IVP PRN (14:22)
--- NOTE | 2025-04-23 17:04 | NOTE.SOAP ---
Soap Note Note for Day of Date of Exam: 04/23/25 Subjective Data Subjective Data: Patient admitted with decompensation of left low knee amputation and will probably need revision to above-knee amputation. Does have some areas of skin necrosis and possibly deep or problem of the right transmetatarsal amputation. Has been on IV antibiotics has remained afebrile. Objective Data Temperature: 98.2 F Pulse Rate: 98 Respiratory Rate: 20 Blood Pressure: 115/61 Objective Data: No change in further infection and gangrenous changes of the left below-knee amputation stump small skin changes consistent with necrosis of the right transmetatarsal amputation. White blood cell count 7600 Assessment Assessment: Gangrenous/infectious changes of the left below-knee stump. Small gangrenous changes of the right transmetatarsal amputation Plan Plan: Continue IV antibiotics. Podiatry is planning on revision of the right transmetatarsal amputation stump on Friday and I will plan revision of the below-knee amputation stump on the left side to left above-knee amputation on Friday of this coming week.
[2025-04-23] MEDS: COLACE CAP 100 MG PO SCH (21:07)
[2025-04-23] MEDS: MILK OF MAGNESIA PO SCH (21:08)
[2025-04-24 05:08] LABS: MEAN PLATELET VOLUME 7.6 fL (7.4-11.0); RED CELL DISTRIBUTION WIDTH 18.0 % (11.6-16.5)
[2025-04-24 05:21] LABS: COR CA(FOR HYPOALB) 9.5 mg/dL (8.5-10.1); COR NA(FOR HYPERGLY) 133 mmol/L (136-145); CREATININE 0.83 mg/dL (0.70-1.30); eGFR NON BLACK RACES > 60 (>60)
[2025-04-24] MEDS: NS 250 ML IV 250 ML IV ONE (05:55)
--- NOTE | 2025-04-24 12:04 | NOTE.SOAP ---
Soap Note Note for Day of Date of Exam: 04/24/25 Subjective Data Subjective Data: Patient remained stable. Objective Data Temperature: 98.4 F Pulse Rate: 90 Respiratory Rate: 20 Blood Pressure: 107/56 O2 Sat by Pulse Oximetry: 97 Objective Data: Exam unchanged Assessment Assessment: Gangrenous changes of the left below-knee amputation stump, evidence of necrosis of transmetatarsal amputation closure. Plan Plan: Podiatry is planning debridement of the right transmetatarsal amputation tomorrow. Tentatively plan for left above-knee amputation on Friday
--- NOTE | 2025-04-24 15:36 | RAD ---
EXAM: FOOT, RIGHT HISTORY: WOUND; COMPARISON: X-ray from April 10, 2025.. TECHNIQUE: 2 views were submitted for interpretation. FINDINGS: Redemonstrated is post amputation across the proximal diaphyses of each metatarsal. No evidence for acute fracture or dislocation. No plain film evidence that would suggest destructive process of osteomyelitis however MRI would be more sensitive. There appears to be soft tissue gas at the level of t he stump as seen on lateral projection. Atherosclerotic calcifications. IMPRESSION: There appears to be soft tissue gas at the level of the stump as seen on lateral projection. Redemonstrated is post amputation across the proximal diaphyses of each metatarsal. No plain film evidence that would suggest destructive process of osteomyelitis however MRI would be more sensitive. Atherosclerotic calcifications. THIS IS AN ELECTRONICALLY VERIFIED FINAL REPORT 04/24/2025 3:33 PM - Electronically signed by Mathew Naqvi DO
[2025-04-25 05:42] LABS: MEAN PLATELET VOLUME 7.8 fL (7.4-11.0); RED CELL DISTRIBUTION WIDTH 17.9 % (11.6-16.5)
[2025-04-25 05:53] LABS: COR CA(FOR HYPOALB) 9.5 mg/dL (8.5-10.1); COR NA(FOR HYPERGLY) 134 mmol/L (136-145); CREATININE 0.81 mg/dL (0.70-1.30); eGFR NON BLACK RACES > 60 (>60)
[2025-04-25] MEDS: ZOFRAN INJ 4 MG VIAL ONE (09:02)
[2025-04-25] MEDS: VERSED ONE (09:02)
[2025-04-25] MEDS: DIPRIVAN VIAL 20 ML ONE ×2 (09:02→11:00)
[2025-04-25] MEDS: PEPCID 20 MG VIAL ONE (09:12)
[2025-04-25] MEDS: ZOFRAN INJ 4 MG VIAL IVP PRN (09:22)
[2025-04-25] MEDS: PEPCID 20 MG VIAL IVP PRN (09:22)
[2025-04-25] MEDS: XYLOCAINE 1% and EPINEPHRINE 1:100,000 ONE (09:54)
[2025-04-25] MEDS: LR 1,000 ML IV 300 ML IV PRN (10:00)
--- NOTE | 2025-04-25 10:06 | DR.CONSULT ---
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 Lewis. Patient was seen in the office last week and advised to come to the hospital for his left BKA site immediately as he was experiencing significant drainage and concern for necrotizing fasciitis to the left. Dr. Pastrana was contacted and patient was told he needed to be placed on IV antibiotics. Patient had stated he had things to do and would probably present the following day. We are seeing the patient for the right TMA site as he was experiencing dehiscence from his previous admission. His previous admission he was to undergo a debridement of the right TMA site but patient left AMA on day of surgery. My office called in an antibiotic for him and had not seen him follow up until this past 04/21/25. Past Medical History Past Medical History: CHF, COPD and Hypertension Additional Medical History: History of right lung cancer resected thorocoscopically . No adjuvant treatment given or required. Past Surgical History Surgical History: Angioplasty/Stents, Ortho Surgery and Tonsillectomy Family History Family Medical History: Diabetes Mellitus and Heart Failure Social History Does patient currently use any type of tobacco product: No Have you used tobacco products in the last 12 months: No How many years tobacco product used: 50 Does any household member use tobacco: No Alcohol Use: None Medications Home Medications: pregabalin (From Lyrica) Adverse Reaction (Severe, Verified 03/08/25 18:07) gabapentin Adverse Reaction (Intermediate, Verified 03/08/25 18:07) Physical Exam Vital Signs: Vital Signs Temperature 98.6 F Temperature 99.1 F Pulse Rate [Radial] 72 Pulse Rate [Radial] 67 Respiratory Rate 18 Respiratory Rate 19 Blood Pressure [Left Arm] 109/53 Blood Pressure [Left Arm] 115/58 O2 Sat by Pulse Oximetry 97 O2 Sat by Pulse Oximetry 96 RIGHT LOWER EXTREMITY FOCUSED Dermatological: To the right TMA site, there is dehiscence noted to almost the entire incision site and is currently open. There is no bone exposed at this time. There is no malodor. He does have some serous drainagae and significant fibrous tissue along the margins. it is not gapping. The incision is approximately 10 cm x 8mm. The patient has a depth of 1.2 cm. It is mostly fibrous tissue. There is no necrosis around the margins. The heel does not have a wound at this time. No other concerns at this time. MSK:Patient has a noted TMA to the right foot and BKA to the left, patient has adequate ROM to the right ankle NEURO: Lack of sensation is noted to sharp/dull, light touch and propioception to the right foot. VASCULAR: DP/PT faintly palpable to the RLE, CFT < 3 sec to the stump site of the right foot Plan (1) Dehiscence of amputation stump of right lower extremity: Status: Acute Narrative Support Text: - Patient to go to OR today for washout and debridement of right TMA site with antibiotic placement - Dr. Pastrana called me this weekend and stated patient will be going to the OR likely Friday for the left- he would like to do separate procedures and not joined - If concerns for vascular status noted, will contact Dr. Pastrana about the right - Patient has been NPO since midnight - XR reviewed, Radiologist noted possible gas on lateral imaging. Imaging reviewed and likely air from open site is noted and correlated with patients vital signs and labs at this time - Patient to continue on IV antibiotics - Please keep patient NWB to the right at this time - Further recommendations to follow Please contact with any questions! 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
[2025-04-25] MEDS: FENTANYL VIAL INJ 100 mcg ONE (10:14)
[2025-04-25] MEDS: LR 1,000 ML IV 1,000 ML IV ONE (10:16)
[2025-04-25] MEDS: MARCAINE 0.25% INJ ONE (10:21)
[2025-04-25] MEDS ORDERED: XYLOCAINE 2 % (PLAIN) PRN (10:27)
[2025-04-25] MEDS: PRECEDEX INJ VIAL IVP PRN (10:28)
[2025-04-25] MEDS: KETAMINE HCL IV PRN (10:28)
[2025-04-25] MEDS: DIPRIVAN VIAL 250 ML IVP PRN (10:28)
[2025-04-25] MEDS: BETADINE SOLN ONE (10:38)
[2025-04-25] MEDS: VERSED IVP PRN (10:38)
[2025-04-25] MEDS: FENTANYL VIAL INJ 100 mcg IVP PRN (10:40)
[2025-04-25] MEDS ORDERED: CONSULT PHARMACY - ANTIBIOTIC XX SCH (11:00)
[2025-04-25] MEDS: DILAUDID INJ ONE (11:14)
[2025-04-25] MEDS: DILAUDID INJ IVP PRN (11:20)
--- NOTE | 2025-04-25 11:20 | OR.IMMED ---
IMMEDIATE POST-OP NOTE Immediate Post-Op Note Date of surgery/procedure: 04/25/25 Pre-Op Diagnosis: Dehiscence, right TMA site Post-Op Diagnosis: Dehiscence, right TMA site Procedure: debridement with antibiotic placement, right TMA site Surgeon/Student Worker: Inessa Findings: see op report Specimens Removed: wound culture Estimated Blood Loss: 15 cc Complications: None Progress Notes: see op report Discharge Progress Notes: - return to inpatient floors - no further podiatric surgical intervention to the right TMA site - will contact Dr. Pastrana about blood flow to the right TMA site as minimal bleeding was encountered during surgery - wound culture obtained in OR, will follow - splint applied to RLE, please keep patient NWB to right leg except for transfers - will evaluate surgical site on Friday if in house - patient can be restarted on diet today Please contact with any questions
[2025-04-25] MEDS: MERREM VIAL 1 G in NS 100 ML IV 100 ML IV SCH (11:45)
--- NOTE | 2025-04-25 19:06 | DR.OPNOTE ---
OP NOTE Pre-Op Diagnosis: Dehiscence, right TMA site Post-Op Diagnosis: Dehiscence, right TMA site Procedure Date Date Of Procedure: 04/25/25 Procedure: Revision of TMA site, right foot Debridement of incision site, right foot Injection of antibiotic cement, right foot Splint application, right foot Type of Anesthesia: Local Anesthesia Comment: MAC Findings: Date: April 25, 2025 Preoperative Diagnoses 1. Dehiscence, right foot. 2. Peripheral arterial disease. 3. Infection. Postoperative Diagnoses 1. Dehiscence, right foot. 2. Peripheral arterial disease. 3. Infection. Procedures 1. Revision of Transmetatarsal amputation of the right. 2. Implantation of cement intramedullary of metatarsals 1, 2, 3, 4, and 5. 3. Intraoperative fluoroscopy. 4. Posterior splint application of the right. Surgeon: Bridgett Wylie D.P.M. Anesthesia: MAC with local. Hemostasis: Anatomical dissection. Estimated blood loss: 15 mL Materials Cerement G, 5 mL placed intramedullary. Indications This is a 69-year-old male patient who has significant peripheral arterial disease. He has had intervention by Dr. Pastrana at his previous admission. The patient has significant issues with microvascular disease as well. The patient has dehiscence noted to his right TMA site. The patient is taken to the OR to day for revision to his transmetatarsal amputation on the right. The patient is also undergoing intervention to his left BKA site during this admission by Dr. Pastrana. Risks and potential complications including the need for the right below the knee amputations were discussed and the patient opted to proceed. Description of Procedure The patient was transported to the Operating Suite. The patient was secured in the supine position on the OR table. The above mentioned anesthesia was administered per the nurse professor of forest planning. The foot was prepped and draped using ChloraPrep scrub. At this time, a timeout was performed. Attention was directed to the right lower extremity. Dehiscence was noted to almost the entirety of the incision site which is measured to be 10 cm x 8 mm. At this time, I made an elliptical type incision surrounding the dehiscence of the incision site and removed it from the surgical site. Next, I created a fish mouth type incision and exposed the soft tissue around the prior amputation site I then used a sagittal saw and I resected about 2-3 mm more of the metatarsals from 1, 2, 3, 4, and 5. I then passed these off to the back table. Hemostasis was maintained. I irrigated with Prontosan. I then obtained a deep wound culture to be sent to the lab for further analysis. Next, I did drill out the metatarsals prior to closure and I placed 5 mL of Cerament G down the canals of the metatarsals 1, 2, 3, 4, and 5. This was to help prevent infection as the patient has a history of infection and the patient is a high-risk for infection and, therefore was implanted with Cerament G in an effort to help combat this. I then used the plantar flap and advanced it up over the top of the bones. I then reapproximated the deep tissue utilizing 3-0 Monocryl and it reapproximated nicely. I then reapproximated the skin utilizing 2-0 and 3-0 nylon in a simple interrupted suture type fashion. At this time, I did feel that there was a very nicely approximation. There did not appear to be any areas of ischemia or vascular congestion. At this time, I placed Xeroform, 4 x 4s, ABD, and a well-padded fiberglass posterior splint was applied to the extremity. Fluoroscopy confirmed placement in intramedullary canals and confirmed this. I did interpret this myself in the Operating Room as there was no radiologist present. The patient was dressed with a splint. He will be nonweightbearing and he will follow up with me as an outpatient. Specimen/Pathology: No bone specimen EBL: 15 cc Drains/Tubes Placed: None Hardware: None Cultures: Wound culture Complications:: None Disposition/Condition: Pt. tolerated procedure without difficulty. Extubated in the OR and taken to PACU in stable condition.
--- NOTE | 2025-04-25 19:20 | NOTE.SOAP ---
Soap Note Note for Day of Date of Exam: 04/25/25 Subjective Data Subjective Data: Status postdebridement of right foot today by podiatry. Patient planned for left above-knee amputation tomorrow. Has had increasing drainage from the left below-knee amputation stump which is open. Objective Data Temperature: 97.8 F Pulse Rate: 82 Respiratory Rate: 18 Blood Pressure: 108/56 O2 Sat by Pulse Oximetry: 97 Objective Data: Patient with significant drainage from the left below-knee amputation stump. Right transmetatarsal amputation after debridement has been dressed. Hemoglobin equals 8.9 g white blood cell count 6400 Assessment Assessment: Breakdown of left below-knee amputation stump. Plan Plan: Will plan revision to left above-knee amputation tomorrow.
[2025-04-26 05:40] LABS: MEAN PLATELET VOLUME 7.8 fL (7.4-11.0); RED CELL DISTRIBUTION WIDTH 17.6 % (11.6-16.5)
[2025-04-26 05:45] LABS: eGFR NON BLACK RACES > 60 (>60)
[2025-04-26 05:57] LABS: COR CA(FOR HYPOALB) 9.5 mg/dL (8.5-10.1); COR NA(FOR HYPERGLY) 132 mmol/L (136-145); CREATININE 0.84 mg/dL (0.70-1.30)
[2025-04-26] MEDS: HIBICLENS WASH EXT ONE (06:07)
[2025-04-26] MEDS: TORADOL 30 MG VIAL ONE (13:45)
[2025-04-26] MEDS: ZOFRAN INJ 4 MG VIAL ONE (13:45)
[2025-04-26] MEDS: AMIDATE INJ 40 MG VIAL ONE (13:45)
[2025-04-26] MEDS: OFIRMEV IV 1000 MG VIAL 1,000 MG/100 ML VIAL IV ONE (13:45)
[2025-04-26] MEDS: DIPRIVAN VIAL 20 ML ONE (13:45)
[2025-04-26] MEDS: REGLAN INJ 10 MG VIAL ONE (13:45)
[2025-04-26] MEDS: VERSED ONE (13:54)
[2025-04-26] MEDS: FENTANYL VIAL INJ 100 mcg ONE (13:54)
[2025-04-26] MEDS ORDERED: ZOFRAN INJ 4 MG VIAL IVP PRN (14:00)
[2025-04-26] MEDS ORDERED: DILAUDID INJ IVP PRN (14:00)
[2025-04-26] MEDS ORDERED: BENADRYL INJ 50 MG VIAL IVP PRN (14:00)
[2025-04-26] MEDS: LR 1,000 ML IV 1,000 ML IV ONE (14:00)
[2025-04-26] MEDS ORDERED: BARHEMSYS INJ IVP PRN (14:00)
[2025-04-26] MEDS ORDERED: REGLAN INJ 10 MG VIAL IVP PRN (14:00)
[2025-04-26] MEDS: REGLAN INJ 10 MG VIAL IVP PRN (14:20)
[2025-04-26] MEDS: VERSED IVP PRN (14:20)
[2025-04-26] MEDS: LR 1,000 ML IV 600 ML IV PRN (14:20)
[2025-04-26] MEDS: ZOFRAN INJ 4 MG VIAL IVP PRN (14:20)
[2025-04-26] MEDS: KETAMINE HCL IV PRN (14:25)
[2025-04-26] MEDS ORDERED: XYLOCAINE 2 % (PLAIN) PRN (14:25)
[2025-04-26] MEDS: PROPOFOL IVP PRN (14:25)
[2025-04-26] MEDS: AMIDATE INJ 40 MG VIAL IVP PRN (14:25)
[2025-04-26] MEDS: TORADOL 30 MG VIAL IVP PRN (14:35)
[2025-04-26] MEDS: FENTANYL VIAL INJ 100 mcg IVP PRN (14:38)
[2025-04-26] MEDS: OFIRMEV IV 1000 MG VIAL 1,000 MG/100 ML VIAL IV PRN (14:41)
[2025-04-26] MEDS: EPHEDRINE SULFATE INJ ONE (14:55)
[2025-04-26] MEDS: NEO-SYNEPHRINE INJ ONE (14:55)
[2025-04-26] MEDS: DANTRIUM IVP PRN ×2 (15:07→15:14)
[2025-04-26] MEDS: EPHEDRINE SULFATE INJ IVP PRN (15:08)
[2025-04-26] MEDS: NEO-SYNEPHRINE INJ IVP PRN (15:08)
[2025-04-26] MEDS: VASOSTRICT INJ 20 UNITS VIAL ONE (15:09)
[2025-04-26] MEDS ORDERED: NORVASC TAB 10 MG PRN (15:10)
--- NOTE | 2025-04-26 15:53 | OR.IMMED ---
IMMEDIATE POST-OP NOTE Immediate Post-Op Note Date of surgery/procedure: 04/26/25 Pre-Op Diagnosis: Gangrenous/ infected left below-knee amputation Post-Op Diagnosis: same Procedure: Revision to left above-knee amputation Description of Procedure: dictated Surgeon/Housekeeping And Laundry Team Leader: Chidi Pastrana MD, FACS Findings: as above Estimated Blood Loss: 200cc Complications: none, but post op Hgb=7.4 Progress Notes: to floor, begin diet , transfuse 2units PRBCs
[2025-04-26] MEDS: NS 250 ML IV 250 ML IV ONE (16:38)
[2025-04-26] MEDS: VISTARIL PO PRN (21:59)
--- NOTE | 2025-04-26 22:16 | DR.OPNOTE ---
OP NOTE Pre-Op Diagnosis: Gangrenous/infected left below-knee amputation site Post-Op Diagnosis: Same Procedure Date Date Of Procedure: 04/26/25 Procedure: PROCEDURE: Left above knee amputation NARRATIVE: Patient was taken to the operative suite and placed in supine position and general anesthesia induced with LMA to control the airway. The left leg was prepped and draped in sterile fashion. Timeout for the procedure obtained. Fish mouthed type incision was made 1 handsbreadth above the patella with a #15 blade knife and the thigh muscles divided with electrocautery down to the medial compartment and the femoral artery and femoral vein divided tween clamps and tied with 0 silk suture ligatures. The periosteum of the femur elevated and the femur divided with a Gigli saw. Amputation knife used to complete the amputation. Hemostasis used to obtain electrocautery. The 2 flaps closed by closing the fascia with interrupted 2-0 Vicryl sutures and the skin closed with skin frida. Compressive dressing applied. Patient tolerated this well. Type of Anesthesia: General Anesthetic w/ETT (LMA) Findings: as above Specimen/Pathology: left above knee amputation Type of Fluids Used:: Lactated Ringers Total Amount of Fluid Infused:: 600cc EBL: 200cc Complications:: none Needle/Sponge Count:: correct Disposition/Condition: Pt. tolerated procedure without difficulty. Extubated and taken to PACU in stable condition.
[2025-04-27 04:45] LABS: MEAN PLATELET VOLUME 8.1 fL (7.4-11.0); RED CELL DISTRIBUTION WIDTH 17.5 % (11.6-16.5)
[2025-04-27 04:53] LABS: COR CA(FOR HYPOALB) 9.8 mg/dL (8.5-10.1); COR NA(FOR HYPERGLY) 131 mmol/L (136-145); CREATININE 0.94 mg/dL (0.70-1.30); eGFR NON BLACK RACES > 60 (>60)
--- NOTE | 2025-04-27 09:13 | NOTE.SOAP ---
Soap Note Note for Day of Date of Exam: 04/27/25 Subjective Data Subjective Data: Patient is POD#2 right TMA revision with antibiotic placement. Patient is seen sitting at the edge of his bed. Patient states he underwent his left AKA surgery yesterday and appears that he just tired and states he would like to go home. Patient is not combative and is just ready to go home and heal. Patient denies any calf pain to his right leg and shortness of breath. Pstient denies any fevers or chills today Objective Data Objective Data: RLE focused exam: Post-operative dressings were removed to the right. Strikethrough was noted on the bandages. Sutures are noted to be intact to the incision site with no gapping or signs of dehiscence. In the central aspect of the incision there appears to be mild maceration consistent with drainage. No active drainage is noted during dressing change. No signs of hematoma, no pain on palpation. CFT < 5 sec to the distal stump site. TMA flap is warm to the touch at this time. No calf tenderness, no signs of cellulitis or increased warmth or swelling are noted to the right leg. Assessment Assessment: Patient is POD#2 TMA revision with antibiotic placement of the right foot secondarily to dehiscence of TMA site of right foot Plan Plan: - patient intraop culture continues to show no growth to the right tma site - preop growth shows pseudomonas growth susceptible to gentamicin and meropenem. Patient is currently on meropenem and I injected patient with gentamicin to the tma site. - I do recommend patient be sent on antibiotics for left AKA site as well - Patient to be NWB to the right foot as he is in a splint during the healing p hase. I did discuss his safety as he can use the right foot for transfers, but if unsafe he is told to use his wheelchair - Did discuss following up with me next week for post op management of right foot - Patient will need to follow up with Dr. Pastrana for the left AKA site outpatient Please contact me with any questions! Dr. Bridgett Wylie
[2025-04-27 11:36] VITALS: BP 119/64; PULSE 88; RESP 20; TEMP 98.3; O2SAT 97
--- NOTE | 2025-04-27 14:09 | W.DIS.FURT ---
Summary of Discharge Discharge Summary of Date Date of Exam: 04/27/25 Admission Date Date of Admission: 04/22/25 Admission Diagnosis Hospital Course: This is a 69-year-old male with significant peripheral vascular disease who has had intervention of the right leg and subsequent right transmetatarsal amputation by the podiatry service. He now has some gangrenous changes around the edges of the transmetatarsal amputation site. He had failed intervention of the arterial structures of the left leg and had a left below-knee amputation but fell on it and broke the stump open. He required admission, IV antibiotics and loose closure with wound vacuum. However he signed out AGAINST MEDICAL ADVICE and wound vacuum was never applied by the home health over the stump. 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 He was admitted, placed IV antibiotics and taken yesterday to the operating suite and had revision of the left leg to left above-knee amputation. He desires to go home. He already has facilities at home to get around. He is discharged home with his usuala medications plus Percocet , 5 mg tablets, 1 every 6 hours PRN Pain and will follow-up in 1 week. He also has follow-up already planned with the podiatry service next week to follow the right leg with his transmetatarsal amputation. Vital Signs: Vital Signs (72 hours) 04/24/25 12:57 04/24/25 13:27 04/24/25 16:18 Temperature Pulse Rate Pulse Rate [Radial] Respiratory Rate 20 20 20 Blood Pressure Blood Pressure [Left Arm] Blood Pressure [Right Arm] O2 Sat by Pulse Oximetry Oxygen Delivery Method Oxygen Flow Rate 04/24/25 16:48 04/24/25 17:02 04/24/25 19:00 Temperature 98.2 F Pulse Rate Pulse Rate [Radial] 105 H Respiratory Rate 20 20 Blood Pressure Blood Pressure [Left Arm] 121/68 Blood Pressure [Right Arm] O2 Sat by Pulse Oximetry 98 Oxygen Delivery Method Room Air Room Air Oxygen Flow Rate 04/24/25 20:00 04/24/25 20:10 04/24/25 20:10 Temperature 99.1 F Pulse Rate 104 H Pulse Rate [Radial] 98 H Respiratory Rate 19 Blood Pressure Blood Pressure [Left Arm] 106/59 Blood Pressure [Right Arm] O2 Sat by Pulse Oximetry 98 99 Oxygen Delivery Method Room Air Room Air Oxygen Flow Rate 04/24/25 20:40 04/24/25 21:10 04/25/25 00:00 Temperature 98.9 F Pulse Rate Pulse Rate [Radial] 82 Respiratory Rate 20 19 19 Blood Pressure Blood Pressure [Left Arm] 106/56 Blood Pressure [Right Arm] O2 Sat by Pulse Oximetry 98 Oxygen Delivery Method Room Air Oxygen Flow Rate 04/25/25 04:00 04/25/25 07:00 04/25/25 07:20 Temperature 99.1 F 98.6 F Pulse Rate Pulse Rate [Radial] 67 72 Respiratory Rate 19 18 Blood Pressure Blood Pressure [Left Arm] 115/58 109/53 Blood Pressure [Right Arm] O2 Sat by Pulse Oximetry 96 97 Oxygen Delivery Method Room Air Room Air Room Air Oxygen Flow Rate 04/25/25 10:21 04/25/25 11:25 04/25/25 11:40 Temperature 98.5 F 98.3 F Pulse Rate 85 Pulse Rate [Radial] 78 88 Respiratory Rate 18 18 18 Blood Pressure 123/65 Blood Pressure [Left Arm] 107/52 109/53 Blood Pressure [Right Arm] O2 Sat by Pulse Oximetry 95 95 93 L Oxygen Delivery Method Room Air Room Air Oxygen Flow Rate 04/25/25 11:55 04/25/25 12:10 04/25/25 12:25 Temperature 98.1 F 97.9 F 98.4 F Pulse Rate Pulse Rate [Radial] 89 91 H 85 Respiratory Rate 18 18 19 Blood Pressure Blood Pressure [Left Arm] 109/59 119/51 110/60 Blood Pressure [Right Arm] O2 Sat by Pulse Oximetry 92 L 95 97 Oxygen Delivery Method Room Air Room Air Room Air Oxygen Flow Rate 04/25/25 12:42 04/25/25 13:12 04/25/25 13:25 Temperature 98.2 F Pulse Rate Pulse Rate [Radial] 89 Respiratory Rate 18 18 20 Blood Pressure Blood Pressure [Left Arm] 107/53 Blood Pressure [Right Arm] O2 Sat by Pulse Oximetry 96 Oxygen Delivery Method Room Air Oxygen Flow Rate 04/25/25 14:25 04/25/25 15:25 04/25/25 16:21 Temperature 97.9 F 97.7 F 97.8 F Pulse Rate Pulse Rate [Radial] 91 H 89 82 Respiratory Rate 19 20 18 Blood Pressure Blood Pressure [Left Arm] 109/51 101/52 108/56 Blood Pressure [Right Arm] O2 Sat by Pulse Oximetry 96 98 97 Oxygen Delivery Method Room Air Room Air Room Air Oxygen Flow Rate 04/25/25 19:00 04/25/25 19:19 04/25/25 19:37 Temperature 97.8 F 99.4 F Pulse Rate 82 Pulse Rate [Radial] 91 H Respiratory Rate 18 18 Blood Pressure 108/56 Blood Pressure [Left Arm] 113/53 Blood Pressure [Right Arm] O2 Sat by Pulse Oximetry 97 98 Oxygen Delivery Method Room Air Room Air Oxygen Flow Rate 04/25/25 19:54 04/25/25 20:24 04/25/25 21:42 Temperature Pulse Rate Pulse Rate [Radial] Respiratory Rate 20 16 18 Blood Pressure Blood Pressure [Left Arm] Blood Pressure [Right Arm] O2 Sat by Pulse Oximetry Oxygen Delivery Method Oxygen Flow Rate 04/25/25 22:42 04/25/25 23:20 04/26/25 00:01 Temperature 98.4 F Pulse Rate Pulse Rate [Radial] 90 Respiratory Rate 16 19 22 Blood Pressure Blood Pressure [Left Arm] 115/55 Blood Pressure [Right Arm] O2 Sat by Pulse Oximetry 96 Oxygen Delivery Method Room Air Oxygen Flow Rate 04/26/25 00:31 04/26/25 03:23 04/26/25 04:16 Temperature 98.9 F Pulse Rate Pulse Rate [Radial] 96 H Respiratory Rate 18 18 20 Blood Pressure Blood Pressure [Left Arm] 118/89 Blood Pressure [Right Arm] O2 Sat by Pulse Oximetry 96 Oxygen Delivery Method Room Air Oxygen Flow Rate 04/26/25 04:46 04/26/25 07:00 04/26/25 07:38 Temperature 99 F Pulse Rate Pulse Rate [Radial] 111 H Respiratory Rate 21 19 Blood Pressure Blood Pressure [Left Arm] 118/56 Blood Pressure [Right Arm] O2 Sat by Pulse Oximetry 97 Oxygen Delivery Method Room Air Room Air Oxygen Flow Rate 04/26/25 08:00 04/26/25 08:24 04/26/25 08:54 Temperature Pulse Rate Pulse Rate [Radial] Respiratory Rate 19 19 Blood Pressure Blood Pressure [Left Arm] Blood Pressure [Right Arm] O2 Sat by Pulse Oximetry Oxygen Delivery Method Room Air Oxygen Flow Rate 04/26/25 11:51 04/26/25 11:59 04/26/25 12:21 Temperature 98.6 F Pulse Rate Pulse Rate [Radial] 105 H Respiratory Rate 19 20 19 Blood Pressure Blood Pressure [Left Arm] 122/58 Blood Pressure [Right Arm] O2 Sat by Pulse Oximetry 98 Oxygen Delivery Method Room Air Oxygen Flow Rate 04/26/25 13:57 04/26/25 15:28 04/26/25 15:28 Temperature 100.9 F H 98.1 F Pulse Rate 107 H 87 Pulse Rate [Radial] Respiratory Rate 18 16 16 Blood Pressure 121/69 103/60 Blood Pressure [Left Arm] Blood Pressure [Right Arm] O2 Sat by Pulse Oximetry 97 Oxygen Delivery Method Room Air Aerosol Face Tent Oxygen Flow Rate 04/26/25 15:33 04/26/25 15:38 04/26/25 15:43 Temperature Pulse Rate 84 84 84 Pulse Rate [Radial] Respiratory Rate 16 16 17 Blood Pressure 107/58 106/55 109/55 Blood Pressure [Left Arm] Blood Pressure [Right Arm] O2 Sat by Pulse Oximetry 100 100 100 Oxygen Delivery Method Aerosol Face Tent Aerosol Face Tent Aerosol Face Tent Oxygen Flow Rate 04/26/25 15:48 04/26/25 15:53 04/26/25 15:58 Temperature 98.9 F Pulse Rate 83 83 83 Pulse Rate [Radial] Respiratory Rate 18 18 18 Blood Pressure 111/58 114/56 118/57 Blood Pressure [Left Arm] Blood Pressure [Right Arm] O2 Sat by Pulse Oximetry 100 100 100 Oxygen Delivery Method Nasal Cannula Nasal Cannula Nasal Cannula Oxygen Flow Rate 04/26/25 16:05 04/26/25 16:20 04/26/25 16:35 Temperature 99.7 F H 99.5 F 99.3 F Pulse Rate Pulse Rate [Radial] 87 82 79 Respiratory Rate 18 16 16 Blood Pressure Blood Pressure [Left Arm] 116/56 96/53 105/58 Blood Pressure [Right Arm] O2 Sat by Pulse Oximetry 99 99 96 Oxygen Delivery Method Room Air Room Air Room Air Oxygen Flow Rate 04/26/25 16:50 04/26/25 17:05 04/26/25 18:03 Temperature 98.9 F 97.8 F 97 F L Pulse Rate Pulse Rate [Radial] 77 82 78 Respiratory Rate 17 18 19 Blood Pressure Blood Pressure [Left Arm] 104/55 107/58 115/59 Blood Pressure [Right Arm] O2 Sat by Pulse Oximetry 97 95 100 Oxygen Delivery Method Room Air Room Air Room Air Oxygen Flow Rate 04/26/25 19:00 04/26/25 19:05 04/26/25 20:05 Temperature 97.5 F L 97.4 F L Pulse Rate Pulse Rate [Radial] 77 70 Respiratory Rate 16 16 Blood Pressure Blood Pressure [Left Arm] 116/68 110/58 Blood Pressure [Right Arm] O2 Sat by Pulse Oximetry 100 100 Oxygen Delivery Method Nasal Cannula Nasal Cannula Nasal Cannula Oxygen Flow Rate 2 2 2 04/26/25 21:05 04/26/25 21:43 04/26/25 22:43 Temperature 97.7 F Pulse Rate Pulse Rate [Radial] 83 Respiratory Rate 18 16 18 Blood Pressure Blood Pressure [Left Arm] 102/57 Blood Pressure [Right Arm] O2 Sat by Pulse Oximetry 100 Oxygen Delivery Method Nasal Cannula Oxygen Flow Rate 2 04/26/25 22:45 04/26/25 23:15 04/26/25 23:25 Temperature 98.0 F Pulse Rate Pulse Rate [Radial] 68 Respiratory Rate 18 16 18 Blood Pressure Blood Pressure [Left Arm] 121/69 Blood Pressure [Right Arm] O2 Sat by Pulse Oximetry 99 Oxygen Delivery Method Nasal Cannula Oxygen Flow Rate 2 04/27/25 04:00 04/27/25 04:34 04/27/25 05:04 Temperature 98.2 F Pulse Rate Pulse Rate [Radial] 99 H Respiratory Rate 18 20 18 Blood Pressure Blood Pressure [Left Arm] Blood Pressure [Right Arm] 102/59 O2 Sat by Pulse Oximetry 100 Oxygen Delivery Method Room Air Oxygen Flow Rate 04/27/25 07:00 04/27/25 07:37 04/27/25 08:12 Temperature 98 F Pulse Rate Pulse Rate [Radial] 104 H Respiratory Rate 20 20 Blood Pressure Blood Pressure [Left Arm] 116/66 Blood Pressure [Right Arm] O2 Sat by Pulse Oximetry 94 L Oxygen Delivery Method Room Air Room Air Oxygen Flow Rate 04/27/25 09:12 04/27/25 10:11 04/27/25 10:41 Temperature Pulse Rate Pulse Rate [Radial] Respiratory Rate 18 20 18 Blood Pressure Blood Pressure [Left Arm] Blood Pressure [Right Arm] O2 Sat by Pulse Oximetry Oxygen Delivery Method Oxygen Flow Rate 04/27/25 11:35 Temperature 98.3 F Pulse Rate Pulse Rate [Radial] 88 Respiratory Rate 20 Blood Pressure Blood Pressure [Left Arm] 119/64 Blood Pressure [Right Arm] O2 Sat by Pulse Oximetry 97 Oxygen Delivery Method Room Air Oxygen Flow Rate Labs: Laboratory Last Values WBC 12.7 X10^3/uL (3.6-10.0) H 04/27/25 04:23 RBC 2.80 X10^6/uL (4.7-6.0) L 04/27/25 04:23 Hgb 9.4 g/dL (13.5-18.0) L 04/27/25 10:32 Hct 28.5 % (42.0-54.0) L 04/27/25 10:32 MCV 92.1 fL (80.0-100.0) 04/27/25 04:23 MCH 30.5 pg (27.0-34.0) 04/27/25 04: MCHC 33.1 g/dL (33.0-35.0) 04/27/25 04:23 RDW 17.5 % (11.6-16.5) H 04/27/25 04:23 Plt Count 192 X10^3/uL (150.0-450.0) 04/27/25 04:23 MPV 8.1 fL (7.4-11.0) 04/27/25 04:23 Neut % (Auto) 86.4 % (42.0-75.0) H 04/27/25 04:23 Lymph % (Auto) 5.5 % (21.0-51.0) L 04/27/25 04:23 [place] % (Auto) 7.4 % (0.0-13.0) 04/27/25 04:23 Eos % (Auto) 0.1 % (0.9-2.9) L 04/27/25 04:23 Baso % (Auto) 0.6 % (0.2-1.0) 04/27/25 04:23 Neut # (Auto) 10.9 x10^3/uL (2.2-4.8) H 04/27/25 04:23 Lymph # (Auto) 0.7 X10^3/uL (1.3-2.9) L 04/27/25 04:23 [place] # (Auto) 0.9 x10^3/uL (0.3-0.8) H 04/27/25 04:23 Eos # (Auto) 0.0 x10^3/uL (0.0-0.2) 04/27/25 04:23 Baso # (Auto) 0.1 X10^3/uL (0.0-0.1) 04/27/25 04:23 Absolute Nucleated RBC 0.1 /100WBC 04/27/25 04:23 Sodium 131 mmol/L (136-145) L 04/27/25 04:23 Corrected Sodium 131 mmol/L (136-145) L 04/27/25 04:23 Potassium 4.4 mmol/L (3.5-5.1) 04/27/25 04:23 Chloride 97 mmol/L (98-107) L 04/27/25 04:23 Carbon Dioxide 26.6 mmol/L (21-32) 04/27/25 04:23 BUN 15 mg/dL (7-18) 04/27/25 04:23 Creatinine 0.94 mg/dL (0.70-1.30) 04/27/25 04:23 Est GFR (MDRD) Af Amer > 60 (>60) 04/27/25 04:23 Est GFR (MDRD) Non-Af > 60 (>60) 04/27/25 04:23 Glucose 111 mg/dL (65-99) H 04/27/25 04:23 Calcium 8.3 mg/dL (8.5-10.1) L 04/27/25 04:23 Corrected Calcium 9.8 mg/dL (8.5-10.1) 04/27/25 04:23 Total Bilirubin 2.70 mg/dL (0.2-1.0) H 04/27/25 04:23 AST 20 Units/L (15-37) 04/27/25 04:23 ALT 8 Units/L (12-78) L 04/27/25 04:23 Alkaline Phosphatase 63 Units/L (46-116) 04/27/25 04:23 Total Protein 6.6 g/dL (6.4-8.2) 04/27/25 04:23 Albumin 2.1 g/dL (3.4-5.0) L 04/27/25 04:23 Globulin 4.5 g/dL (2.5-4.5) 04/27/25 04:23 Albumin/Globulin Ratio 0.5 Ratio (1.1-2.1) L 04/27/25 04:23 Blood Type AB NEGATIVE 04/26/25 05:12 Antibody Screen Negative 04/26/25 05:12 Crossmatch See Detail 04/26/25 05:12 Impression: see hospital course Reason For Visit: INFECTED LEFT BKA Discharge Date Discharge Date: 04/27/25 Discharge Diagnosis All Active Problems (Updated 04/09/25 @ 09:33 by Bridgett Wylie) Dehiscence of amputation stump of right lower extremity (Acute) Gangrene due to arterial insufficiency (Acute) Personal history of lung cancer (Acute) Essential (primary) hypertension (Acute) Congestive heart disease (Acute) Atherosclerosis of [place] arteries of extremities with rest pain, right leg (Acute) Atherosclerosis of [place] arteries of extremities with rest pain, left leg (Acute) Plan of Treatment: Continue with present treatment and follow up plan. Pt is to keep follow up appointment as instructed and take medications as ordered. Discharge Medications Discharge Medications: pregabalin (From Lyrica) Adverse Reaction (Severe, Verified 03/08/25 18:07) gabapentin Adverse Reaction (Intermediate, Verified 03/08/25 18:07) percocet, 5m , 1 po q 6 hr prn pain Discharge Disposition Assessment: see hospital course Discharge Plan Discharge Plan Hospital Course: This is a 69-year-old male with significant peripheral vascular disease who has had intervention of the right leg and subsequent right transmetatarsal amputation by the podiatry service. He now has some gangrenous changes around the edges of the transmetatarsal amputation site. He had failed intervention of the arterial structures of the left leg and had a left below-knee amputation but fell on it and broke the stump open. He required admission, IV antibiotics and loose closure with wound vacuum. However he signed out AGAINST MEDICAL ADVICE and wound vacuum was never applied by the home health over the stump. 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 He was admitted, placed IV antibiotics and taken yesterday to the operating suite and had revision of the left leg to left above-knee amputation. He desires to go home. He already has facilities at home to get around. He is discharged home with his usuala medications plus Percocet , 5 mg tablets, 1 every 6 hours PRN Pain and will follow-up in 1 week. He also has follow-up already planned with the podiatry service next week to follow the right leg with his transmetatarsal amputation. Patient Disposition: HOME HEALTH SERVICE Condition: Stable Health Concerns: Post Hospitalization: new medications and changes needed to prevent readmission or further decline. Pt educated and given instructions on all concerns. Care Plan Goals: Problem: Pain/Alteration in Comfort Goal: Improve/ Resolve Pain; Achieve Pain Tolerance Instructions: Take pain medications as prescribed. Contact your primary care provider if your pain is unrelieved or worsens. Follow up with primary care provider as directed. Plan of Treatment: Continue with present treatment and follow up plan. Pt is to keep follow up appointment as instructed and take medications as ordered. Assessment: see hospital course Prescription drug monitoring program results: PDMP was not reviewed Prescriptions: New oxycodone-acetaminophen [Percocet] 5-325 mg tablet 1 tab PO Q6H MDD 4 PRNQty: 30 0RF Continued clopidogrel [Plavix] 75 mg Tablet 75 mg PO DAILY spironolactone 25 mg Tablet 25 mg PO DAILY albuterol sulfate 2.5 mg /3 mL (0.083 %) Solution For Nebulization 2.5 mg continuous nebulization Q6H PRN tramadol 50 mg Tablet 50 mg PO Q4H PRN ciprofloxacin HCl [Cipro] 500 mg tablet 500 mg PO BID Qty: 14 0RF Rx Instructions: 1 TABLET BY MOUTH EVERY 12 HOURS FOR 14 DAYS. PRESCRIBED 04/13/25 carvedilol 12.5 mg Tablet 12.5 mg PO BID Rx Instructions: must administer with a meal/food Follow ups/Referrals Follow ups/Referrals: FREDDIE STARKEY [STAFF PHYSICIAN, Unknown] - 1 WEEK Mario Lewis [CONSULTING PHYSICIAN, Unknown] - 05/05/25 2:00 pm Cisco Pastrana [STAFF PHYSICIAN, Unknown] - 05/04/25 1:30 pm Instructions Instructions: Stump and Prosthesis Care, Wound Dehiscence, [id number], Living With an Amputation, Phantom Limb Pain Stand Alone Forms: Excuse From Work or School, Find Help Web Site, Post Hospital Follow Up Care Print Language: MALAWIAN
== END 2025-04-27 14:30 | disposition home health service (06) | DRG 464 ==
LOC: MED/SURG → OBSVTOIN 09:37
PROVIDERS: ADMIT Surgery; ATTEND Surgery
DX: Z16.12 Extended spectrum beta lactamase (ESBL) resistance; I70.223 Atherosclerosis of native arteries of extremities with rest pain, bilateral legs; E87.1 Hypo-osmolality and hyponatremia; Z16.23 Resistance to quinolones and fluoroquinolones; Z16.19 Resistance to other specified beta lactam antibiotics; Z16.29 Resistance to other single specified antibiotic; J44.9 Chronic obstructive pulmonary disease, unspecified; Z29.89 Encounter for other specified prophylactic measures; I77.1 Stricture of artery; Z85.118 Personal history of other malignant neoplasm of bronchus and lung; I96 Gangrene, not elsewhere classified; T87.81 Dehiscence of amputation stump; B95.62 Methicillin resistant Staphylococcus aureus infection as the cause of diseases classified elsewhere; B96.5 Pseudomonas (aeruginosa) (mallei) (pseudomallei) as the cause of diseases classified elsewhere; E80.6 Other disorders of bilirubin metabolism; I50.9 Heart failure, unspecified; R73.09 Other abnormal glucose; D64.89 Other specified anemias; Z59.868 Other specified financial insecurity; I11.0 Hypertensive heart disease with heart failure

== ENCOUNTER 2025-05-05 18:05 | Inpatient (IN) ==
[2025-05-05 18:38] LABS: MEAN PLATELET VOLUME 7.6 fL (7.4-11.0); RED CELL DISTRIBUTION WIDTH 17.5 % (11.6-16.5)
[2025-05-05 18:54] LABS: COR CA(FOR HYPOALB) 10.1 mg/dL (8.5-10.1); COR NA(FOR HYPERGLY) 132 mmol/L (136-145); CREATININE 0.81 mg/dL (0.70-1.30); eGFR NON BLACK RACES > 60 (>60)
--- NOTE | 2025-05-05 20:13 | DR.EXTPAIN ---
HPI Time seen Time Seen by Provider: 05/05/25 18:41 PCP Primary Care Physician: froy Complaint/Symptoms Chief Complaint Doctor Comments: Patient states he had surgery on right foot amputation on April 26. Patient states he has had bugs in his wound and it has opened up. Patient denies fever. He has had some oozing from the wound. Chief Complaint:: pt to triage via w/c with complaint of having bugs in the wound on his rt foot on from surgery on Apr 26 COVID-19 Coronavirus risk:travel/contact w/high risk person: No Has patient experienced Coronavirus symptoms: No Source History Provided: Patient Mode of arrival Mode of Arrival: Wheelchair Timing Onset of Chief Complaint: 05/05/25 PMH PMH Past Medical History: Yes Past Medical History: CHF, COPD, Coronary Artery Disease and Hypertension Past Medical History Comment: PAD Past Surgical History: Yes Surgical History: Angioplasty/Stents, Ortho Surgery and Tonsillectomy Past Surgical History Comment: lt above knee amputee, partial amputation of the rt foot right lung upper lobectomy from lung CA Family History History of Family Medical Conditions: Yes Family Medical History: Diabetes Mellitus and Heart Failure Social History Does patient currently use any type of tobacco product: No Have you used tobacco products in the last 12 months: No Type of Tobacco Use: None Does any household member use tobacco: No Alcohol Use: None Do you use any recreational Drugs:: No Lives With: Family Lives Where: Home Travel Risk Coronavirus risk:travel/contact w/high risk person: No Has patient experienced Coronavirus symptoms: No Infectious screening In the last 2 months have you had wt loss of >10#?: NO Have you had fever, night sweats or hemotysis?: No Have you traveled outside the country in the last 6 months?: No Isolation: Standard ROS Review of Systems Constitutional: No Symptoms Reported; negative Fever Eyes: No Symptoms Reported ENTM: No Symptoms Reported Respiratoy: No Symptoms Reported Cardiovascular: No Symptoms Reported Gastrointestinal/Abdominal: No Symptoms Reported Genitourinary: No Symptoms Reported Neurological: No Symptoms Reported Musculoskeletal: See HPI Integumentary: No Symptoms Reported Hematologic/Lymphatic: No Symptoms Reported Endocrine: No Symptoms Reported Psychiatric: No Symptoms Reported All Other Systems: Reviewed and Negative PE Vital Signs Vitals: Vital Signs Temperature 97.8 F Pulse Rate 90 Respiratory Rate 18 Blood Pressure 115/57 O2 Sat by Pulse Oximetry 99 General Limitations: No Limitations General Appearance: Alert and In No Apparent Distress Head Head Exam: Normal Inspection Eyes Eye exam: Normal Appearance ENT ENT Exam: Normal Exam Neck Neck Exam: Normal Inspection Chest Chest Inspection: Normal Inspection Respiratory Respiratory Exam: Normal Lung Sounds Bilat Cardiovascular Cardiovascular Exam: Regular Rate and Normal Rhythm Abdominal Exam Abdominal Exam: Normal Inspection, Normal Bowel Sounds and Soft Extremities Extremities Exam: Other (Left AKA. Right foot surgical wound with dehiscence and infestation.) Back Back Exam: Normal Inspection Neurological Neurological Exam: Alert, Oriented X3 and CN II-XII Intact Psychiatric Psychiatric Exam: Normal Affect and Normal Mood Skin Skin Exam: Warm, Dry, Intact and Normal Color COURSE Treatment Treatment: Discussed case with patient and family as well as Dr. Pastrana, surgeon, present in the room. Dr. Pastrana will admit patient and reevaluated in the morning. Dr. Pastrana requested. Basic admission order and he will do the orders shortly. Consultation Consultation Comments: Discussed case with Dr. He he examined patient in ER and will admit. ROR Labs Reviewed Laboratory Results Reviewed?: Yes 05/05/25 18:27 05/05/25 18:27 Laboratory: 05/05/25 18:23 Foot - Right Wound Gram Stain - Final WBC 7.3 X10^3/uL (3.6-10.0) 05/05/25 18: RBC 3.41 X10^6/uL (4.7-6.0) L 05/05/25 18:27 Hgb 10.4 g/dL (13.5-18.0) L 05/05/25 18: Hct 31.2 % (42.0-54.0) L 05/05/25 18: MCV 91.5 fL (80.0-100.0) 05/05/25 18: MCH 30.5 pg (27.0-34.0) 05/05/25 18: MCHC 33.3 g/dL (33.0-35.0) 05/05/25 18: RDW 17.5 % (11.6-16.5) H 05/05/25 18: Plt Count 352 X10^3/uL (150.0-450.0) 05/05/25 18: MPV 7.6 fL (7.4-11.0) 05/05/25 18:27 Neut % (Auto) 68.7 % (42.0-75.0) 05/05/25 18:27 Lymph % (Auto) 16.4 % (21.0-51.0) L 05/05/25 18:27 [place] % (Auto) 12.1 % (0.0-13.0) 05/05/25 18:27 Eos % (Auto) 1.7 % (0.9-2.9) 05/05/25 18:27 Baso % (Auto) 1.1 % (0.2-1.0) H 05/05/25 18:27 Neut # (Auto) 5.0 x10^3/uL (2.2-4.8) H 05/05/25 18:27 Lymph # (Auto) 1.2 X10^3/uL (1.3-2.9) L 05/05/25 18:27 [place] # (Auto) 0.9 x10^3/uL (0.3-0.8) H 05/05/25 18:27 Eos # (Auto) 0.1 x10^3/uL (0.0-0.2) 05/05/25 18:27 Baso # (Auto) 0.1 X10^3/uL (0.0-0.1) 05/05/25 18:27 Absolute Nucleated RBC 0.0 /100WBC 05/05/25 18:27 Sodium 131 mmol/L (136-145) L 05/05/25 18:27 Corrected Sodium 132 mmol/L (136-145) L 05/05/25 18:27 Potassium 3.9 mmol/L (3.5-5.1) 05/05/25 18:27 Chloride 96 mmol/L (98-107) L 05/05/25 18:27 Carbon Dioxide 29.5 mmol/L (21-32) 05/05/25 18:27 BUN 13 mg/dL (7-18) 05/05/25 18:27 Creatinine 0.81 mg/dL (0.70-1.30) 05/05/25 18:27 Est GFR (MDRD) Af Amer > 60 (>60) 05/05/25 18:27 Est GFR (MDRD) Non-Af > 60 (>60) 05/05/25 18:27 Glucose 148 mg/dL (65-99) H 05/05/25 18:27 Calcium 8.6 mg/dL (8.5-10.1) 05/05/25 18:27 Corrected Calcium 10.1 mg/dL (8.5-10.1) 05/05/25 18:27 Total Bilirubin 0.60 mg/dL (0.2-1.0) 05/05/25 18:27 AST 18 Units/L (15-37) 05/05/25 18:27 ALT 15 Units/L (12-78) 05/05/25 18:27 Alkaline Phosphatase 88 Units/L (46-116) 05/05/25 18:27 Total Protein 6.8 g/dL (6.4-8.2) 05/05/25 18:27 Albumin 2.1 g/dL (3.4-5.0) L 05/05/25 18:27 Globulin 4.7 g/dL (2.5-4.5) H 05/05/25 18:27 Albumin/Globulin Ratio 0.4 Ratio (1.1-2.1) L 05/05/25 18:27 Opioid Opioid Risk Tool Age (Justin box if 16-45): No History of Preadolescent Sexual Abuse: No Total: 0 Total Score Risk Category: Low Risk Copyright: Otilio SIMONS predicting aberrant behaviors Discharge Plan Diagnosis Discharge Problem: Dehiscence of wound, Dehiscence of amputation stump of right lower extremity Discharge Plan Patient Disposition: 09 ADMITTED INPATIENT Condition: Stable Prescriptions: No Action clopidogrel [Plavix] 75 mg Tablet 75 mg PO DAILY spironolactone 25 mg Tablet 25 mg PO DAILY albuterol sulfate 2.5 mg /3 mL (0.083 %) Solution For Nebulization 2.5 mg continuous nebulization Q6H PRN tramadol 50 mg Tablet 50 mg PO Q4H PRN ciprofloxacin HCl [Cipro] 500 mg tablet 500 mg PO BID Qty: 14 0RF Rx Instructions: 1 TABLET BY MOUTH EVERY 12 HOURS FOR 14 DAYS. PRESCRIBED 04/13/25 carvedilol 12.5 mg Tablet 12.5 mg PO BID Rx Instructions: must administer with a meal/food oxycodone-acetaminophen [Percocet] 5-325 mg tablet 1 tab PO Q6H MDD 4 PRNQty: 30 0RF Health Concerns: Post Hospitalization: new medications and changes needed to prevent readmission or further decline. Pt educated and given instructions on all concerns. Plan of Treatment: Continue with present treatment and follow up plan. Pt is to keep follow up appointment as instructed and take medications as ordered. Orders to Discharge Patient Discharge Orders: Transfer (Routine); Ordered 05/05/25 Ordered By: Kei Holcomb Follow ups/Referrals Follow ups/Referrals: cezar rice [Primary Care Provider, Unknown] - 3 days Instructions Stand Alone Forms: Find Help Web Site, Post Hospital Follow Up Care Print Language: [place]
--- NOTE | 2025-05-05 21:57 | DR.H&P ---
H&P History & Physical for Day of: H&P Date: 05/05/25 Chief Complaint Chief Complaint: Maggots on the right transmetatarsal amputation site with swollen right leg History of Present Illness History of Present Illness: This is a 69-year-old male with significant peripheral vascular disease who had failure to intervention of the left leg and had a left below-knee amputation. He fell on it and the stump broke apart and can ever be closed and he was converted to a left above-knee amputation last week. He also was noted to have had arterial invention of the right leg and subsequent right transmetatarsal amputation. During his admission recently he had debridement of the right respiratory rotation and was discharged home. He presented back today with maggots from the right transmetatarsal amputation site. The left above-knee potation site looks good. He had the maggots cleaned up in the ER and has been admitted for observation and consultation with podiatry. Significant history of hypertension and congestive heart failure and COPD. History of right lung cancer resected thoracoscopically in the past with no evidence of continued lung carcinoma Past Medical History Past Medical History: CHF, COPD, Coronary Artery Disease and Hypertension Additional Medical History: History of right lung cancer resected thorocoscopically . No adjuvant treatment given or required. Past Surgical History Surgical History: Angioplasty/Stents, Ortho Surgery and Tonsillectomy Family History Family Medical History: Diabetes Mellitus and Heart Failure Social History Does patient currently use any type of tobacco product: No Have you used tobacco products in the last 12 months: No Type of Tobacco Use: None How many years tobacco product used: 50 Does any household member use tobacco: No Alcohol Use: None Medications Home Medications: Home Medications Medication Instructions Recorded Confirmed Type carvedilol 12.5 mg tablet 12.5 mg PO BID 11/29/2404/13 History clopidogrel 75 mg tablet (Plavix) 75 mg PO DAILY 03/0804/22/25 History spironolactone 25 mg tablet 25 mg PO DAILY 03/24/25 History albuterol sulfate 2.5 mg/3 mL 2.5 mg continuous nebuli zation Q6H 04/08/25 04/22/25 History (0.083 %) solution for nebulization PRN tramadol 50 mg tablet 50 mg PO Q4H PRN 04/08/25 History Allergies Allergies Allergy/AdvReac Type Severity Reaction Status Date / Time pregabalin (From Lyrica) AdvReac Severe Verified 03/08/25 18:07 gabapentin AdvReac Intermediate Verified 03/08/25 18:07 Labs 05/05/25 18:27 05/05/25 18:27 Labs: 05/05/25 18:23 Foot - Right Wound Gram Stain - Final Laboratory WBC 7.3 X10^3/uL (3.6-10.0) 05/05/25 18: RBC 3.41 X10^6/uL (4.7-6.0) L 05/05/25 18: Hgb 10.4 g/dL (13.5-18.0) L 05/05/25 18: Hct 31.2 % (42.0-54.0) L 05/05/25 18: MCV 91.5 fL (80.0-100.0) 05/05/25 18: MCH 30.5 pg (27.0-34.0) 05/05/25 18: MCHC 33.3 g/dL (33.0-35.0) 05/05/25 18: RDW 17.5 % (11.6-16.5) H 05/05/25 18: Plt Count 352 X10^3/uL (150.0-450.0) 05/05/25 18: MPV 7.6 fL (7.4-11.0) 05/05/25 18: Neut % (Auto) 68.7 % (42.0-75.0) 05/05/25 18: Lymph % (Auto) 16.4 % (21.0-51.0) L 05/05/25 18: [place] % (Auto) 12.1 % (0.0-13.0) 05/05/25 18: Eos % (Auto) 1.7 % (0.9-2.9) 05/05/25 18: Baso % (Auto) 1.1 % (0.2-1.0) H 05/05/25 18: Neut # (Auto) 5.0 x10^3/uL (2.2-4.8) H 05/05/25 18:27 Lymph # (Auto) 1.2 X10^3/uL (1.3-2.9) L 05/05/25 18:27 [place] # (Auto) 0.9 x10^3/uL (0.3-0.8) H 05/05/25 18:27 Eos # (Auto) 0.1 x10^3/uL (0.0-0.2) 05/05/25 18: Baso # (Auto) 0.1 X10^3/uL (0.0-0.1) 05/05/25 18: Absolute Nucleated RBC 0.0 /100WBC 05/05/25 18: Sodium 131 mmol/L (136-145) L 05/05/25 18: Corrected Sodium 132 mmol/L (136-145) L 05/05/25 18: Potassium 3.9 mmol/L (3.5-5.1) 05/05/25 18: Chloride 96 mmol/L (98-107) L 05/05/25 18: Carbon Dioxide 29.5 mmol/L (21-32) 05/05/25 18: BUN 13 mg/dL (7-18) 05/05/25 18: Creatinine 0.81 mg/dL (0.70-1.30) 05/05/25 18:27 Est GFR (MDRD) Af Amer > 60 (>60) 05/05/25 18:27 Est GFR (MDRD) Non-Af > 60 (>60) 05/05/25 18: Glucose 148 mg/dL (65-99) H 05/05/25 18: Calcium 8.6 mg/dL (8.5-10.1) 05/05/25 18: Corrected Calcium 10.1 mg/dL (8.5-10.1) 05/05/25 18: Total Bilirubin 0.60 mg/dL (0.2-1.0) 05/05/25 18: AST 18 Units/L (15-37) 05/05/25 18:27 ALT 15 Units/L (12-78) 05/05/25 18:27 Alkaline Phosphatase 88 Units/L (46-116) 05/05/25 18: Total Protein 6.8 g/dL (6.4-8.2) 05/05/25 18:27 Albumin 2.1 g/dL (3.4-5.0) L 05/05/25 18:27 Globulin 4.7 g/dL (2.5-4.5) H 05/05/25 18:27 Albumin/Globulin Ratio 0.4 Ratio (1.1-2.1) L 05/05/25 18:27 Review of Systems Constitutional: See HPI Eyes: No Symptoms Reported ENT: No Symptoms Reported Respiratory: See HPI Cardiovascular: See HPI Gastrointestinal: No Symptoms Reported Genitourinary: No Symptoms Reported Musculoskeletal: See HPI Skin: See HPI Neurological: No Symptoms Reported Physical Exam Vital Signs: Vital Signs Temperature 97.8 F Pulse Rate [Left] 90 Pulse Rate [Left] 95 Pulse Rate 90 Respiratory Rate 18 Respiratory Rate 18 Blood Pressure [Left Arm] 116/68 Blood Pressure 115/57 O2 Sat by Pulse Oximetry 98 O2 Sat by Pulse Oximetry 98 O2 Sat by Pulse Oximetry 99 Oriented: Normal, Time, Person and Place Eyes: Normal Ear: Normal Nose: Normal Throat: Normal Respiratory: Clear Throughout Cardiovascular: Normal : Normal Auscultation: Bowel Sounds: Normal Palpation: Normal Tenderness: Normal Skin: Other (Left above-knee amputation stump healing well. Right transmetatarsal amputation looks good with no necrotic tissue but does have maggots in the wound. Those removed in the emergency room.) Musculoskeletal: Right (Right transmetatarsal amputation) and Left (Left above- knee amputation) Psychiatric: Anxiety Mood Description: Anxious Affect: Normal Speech Pattern: Clear and Appropriate Assessment/Plan (1) Dehiscence of amputation stump of right lower extremity: Status: Acute Plan: Patient presented with maggots to the wound which have been cleared. Will place IV antibiotics and have podiatry see him in the morning (2) Dehiscence of wound: Status: Acute Plan: Left [id number] amputation site is healing well (3) Gangrene due to arterial insufficiency: Status: Acute (4) Personal history of lung cancer: Status: Acute (5) Essential (primary) hypertension: Status: Acute Plan: Home medications (6) Congestive heart disease: Status: Acute Plan: Home medications (7) Atherosclerosis of [place] arteries of extremities with rest pain, right leg: Status: Acute (8) Atherosclerosis of [place] arteries of extremities with rest pain, left leg: Status: Acute Review H&P Reviewed: Yes Patient was examined?: Yes
[2025-05-05] MEDS: LR 1,000 ML IV 1,000 ML IV SCH (22:35)
[2025-05-05] MEDS: ZOSYN VIAL 3.375 GRAMS 3.375 G in NS 100 ML IV 100 ML IV SCH (22:35)
[2025-05-05] MEDS: NS 250 ML IV 250 ML IV ONE (22:35)
[2025-05-05 22:38] VITALS: BMI 23.3
[2025-05-05] MEDS: PERCOCET TAB 5/325 MG PO PRN (22:38)
[2025-05-05] MEDS: STERILE WATER IRRIGATION IR ONE (23:57)
[2025-05-06] MEDS: ACCUNEB 1.25 MG NEBULE NEB SCH ×2 (00:24→05:33)
--- NOTE | 2025-05-06 08:00 | RAD ---
EXAM: FOOT, RIGHT HISTORY: RIGHT FOOT POST OP; CHF, COPD, CAD, HTN, PAD SX: ANGIO/STENTS, L AKA, PARTIAL RIGHT FOOT AMP, RIGHT UPPER LUNG LOPECTOMY COMPARISON: 04/24/2025 TECHNIQUE: 3 views FINDINGS: Stable postsurgical changes from transmetatarsal amputation through the metatarsal bases. No focal cortical destruction or aggressive periosteal reaction. Surgical margins are distinct. Soft tissue edema along the distal surgical margin with ulceration superficial to the 5th metatarsal base remnant. Moderate arterial calcifications. IMPRESSION: Stable postsurgical changes. No radiographic evidence of osteomyelitis. THIS IS AN ELECTRONICALLY VERIFIED FINAL REPORT 05/06/2025 7:58 AM - Electronically signed by Vasyl Vilchis MD
[2025-05-06] MEDS: COLACE CAP 100 MG PO SCH (09:10)
[2025-05-06] MEDS: ALDACTONE TAB 25 MG PO SCH (09:10)
[2025-05-06] MEDS: PLAVIX PO SCH (09:10)
[2025-05-06] MEDS: LOVENOX INJ 40 MG SYR SC SCH (09:10)
[2025-05-06] MEDS: COREG TAB 12.5 MG PO SCH (09:10)
[2025-05-06] MEDS: DILAUDID INJ IVP PRN (09:11)
--- NOTE | 2025-05-06 09:18 | VAS ---
EXAM: VENOUS DOPPLER LOWER EXTREMITY UNILATERAL RIGHT HISTORY: swollen right leg; COMPARISON: None. TECHNIQUE: Ultrasound of the deep venous vasculature of the right lower extremity was performed. Color and spectral doppler imaging was utilized. FINDINGS: Technically difficult study due to moderate right lower extremity edema. The deep veins of the right lower extremity are normal in size and configuration. No intraluminal filling defects are seen on grayscale or color flow imaging. The veins compress normally. Doppler waveforms are normal at rest and with augmentation. Patient declined left lower extremity scan due to pain. IMPRESSION: 1. Technically difficult study. Patient declined left lower extremity scan due to pain. 2. No evidence of deep venous thrombus in the right lower extremity. THIS IS AN ELECTRONICALLY VERIFIED FINAL REPORT 05/06/2025 9:14 AM - Electronically signed by Vasyl Vilchis MD
[2025-05-06] MEDS: BETADINE SOLN ONE (17:35)
[2025-05-06] MEDS: DAKINS SOLUTION FULL STRENGTH TOP SCH (17:38)
--- NOTE | 2025-05-06 18:04 | MD.NOTE ---
Provider Note Note Note: Mr. Wilhelm is a 69-year-old male with significant peripheral vascular disease who underwent a BKA to the left lower extremity. Patient had fallen on his left leg and went through a revisional surgery last week for an AKA. Patient also was suffering from dehiscence to the right TMA site and underwent a revisional surgery to his right TMA site by me on 04/25/25. Patient has failed to present for his post operative evaluation outpatient despite multiple attempts. Home health care reported that maggots were found in his TMA site on 05/05/25. Patient was told by my office to come to the emergency department. On arrival he was cleansed to rid of the maggots. Patient denies any fevers r nausea. He states he is experiencing pain in his right surgical site. Patient states he had his surgery site near the garbage uncovered and that is why he thinks he got maggots. PMHx: Significant history of hypertension and congestive heart failure and COPD. History of right lung cancer resected thoracoscopically in the past with no evidence of continued lung carcinoma S: Patient states he is feeling better today but doesn't appear to have much of an appetite. Patient is seen sitting up in bed and denies any shortness of breath and no fevers at this time. O: RLE focused exam, left BKA noted: To the right TMA site sutures were still intact. Upon removal, surgical site was examined. No bone is exposed at this time. Maceration and dehiscence is appreciated to the incision site once again and measures approximately 6.9 x 0.8 cm. No malodor is noted, no fluctuance or crepitus is appreciated to the surrounding site. No periwound erythema is noted that is warm to touch. No increased redness, swelling or cellulitis is noted up the right leg. Patient has healed wounds to the right calf, no increased warmth or cellulitis is noted. These previously healed wounds are consistent with venous insufficiency. Vascular: faintly palpable DP to the right TMA site s/p intervention, CFT < 5 sec to the distal stump site MSK: Left AKA noted, right TMA noted, adequate ROM noted to the right ankle A: Dehiscence to right TMA site P: - Please apply dakins solution wet to dry to right TMA site - Will monitor clinical progression for wound vac vs surgical intervention - Patient can apply weight for transfers only at this time - Patient currently on IV antibiotics Further recommendations to follow Dr. Bridgett Wylie
--- NOTE | 2025-05-06 23:25 | NOTE.SOAP ---
Soap Note Note for Day of Date of Exam: 05/06/25 Subjective Data Subjective Data: Patient admitted with maggots from the right transmetatarsal amputation stump. Left above-knee stump looks good. Patient seen by podiatry and they have started on Dakin's soaks. No further maggots noted. Objective Data Temperature: 98.0 F Pulse Rate: 96 Respiratory Rate: 18 Blood Pressure: 119/60 O2 Sat by Pulse Oximetry: 100 Objective Data: No obvious necrosis of the right transmetatarsal amputation site or left above- knee amputation site. White blood cell count 7003 Assessment Assessment: Maggots to right transmetatarsal amputation site Plan Plan: Continue antibiotics for treatment of Dakins solution as podiatry above.
[2025-05-07 05:09] LABS: MEAN PLATELET VOLUME 7.4 fL (7.4-11.0); RED CELL DISTRIBUTION WIDTH 17.3 % (11.6-16.5)
[2025-05-07 05:22] LABS: COR CA(FOR HYPOALB) 9.9 mg/dL (8.5-10.1); CREATININE 0.82 mg/dL (0.70-1.30); eGFR NON BLACK RACES > 60 (>60)
[2025-05-07] MEDS ORDERED: CONSULT PHARMACY - POTASSIUM & MAGNESIUM XX SCH (07:00)
[2025-05-07] MEDS: K-DUR TAB 20 MEQ PO ONE (08:41)
[2025-05-07] MEDS: MAG-OX TAB PO SCH (09:58)
[2025-05-08 05:15] LABS: MEAN PLATELET VOLUME 8.0 fL (7.4-11.0); RED CELL DISTRIBUTION WIDTH 17.3 % (11.6-16.5)
[2025-05-08 05:24] LABS: COR CA(FOR HYPOALB) 9.7 mg/dL (8.5-10.1); COR NA(FOR HYPERGLY) 133 mmol/L (136-145); CREATININE 0.92 mg/dL (0.70-1.30); eGFR NON BLACK RACES > 60 (>60)
[2025-05-08] MEDS: NS 250 ML IV 250 ML IV ONE (07:43)
[2025-05-08] MEDS: MAG-OX TAB PO SCH (10:12)
[2025-05-08] MEDS: MILK OF MAGNESIA PO PRN (13:20)
--- NOTE | 2025-05-08 18:01 | NOTE.SOAP ---
Soap Note Note for Day of Date of Exam: 05/07/25 Subjective Data Subjective Data: Patient doing better. No drainage from left above-knee amputation. Right transmetatarsal amputation appears clean Objective Data Temperature: 97.8 F Pulse Rate: 95 Respiratory Rate: 20 Blood Pressure: 114/70 O2 Sat by Pulse Oximetry: 97 Objective Data: As above Assessment Assessment: Maggot involvement of right transmetatarsal, question infection Plan Plan: Probably discharge early next week
--- NOTE | 2025-05-08 18:04 | NOTE.SOAP ---
Soap Note Note for Day of Date of Exam: 05/08/25 Subjective Data Subjective Data: Patient unchanged from yesterday continues on IV antibiotics. Objective Data Temperature: 97.9 F Pulse Rate: 91 Respiratory Rate: 19 Blood Pressure: 108/59 O2 Sat by Pulse Oximetry: 98 Objective Data: Dressings intact left above-knee amputation and right transmetatarsal amputation Assessment Assessment: Maggot infestation of right transmetatarsal amputation Plan Plan: Podiatry planning further debridement of right transmetatarsal amputation tomorrow hopefully can be discharged home after that
--- NOTE | 2025-05-08 19:09 | MD.NOTE ---
Provider Note Note Note: Patient to go to OR tomorrow for debridement of TMA site, right foot at 7:30 AM Patient to be NPO at midnight After debridement, patient can be discharged home. Patient will need to follow up outpatient with me in a week Patient will likely be discharged on po antibiotic pending surgical intervention tomorrow Please contact me with any questions Dr. Bridgett Wylie
[2025-05-08] MEDS: CONSULT PHARMACY - POTASSIUM & MAGNESIUM XX SCH (20:19)
[2025-05-09 05:56] LABS: MEAN PLATELET VOLUME 7.6 fL (7.4-11.0); RED CELL DISTRIBUTION WIDTH 17.4 % (11.6-16.5)
[2025-05-09 06:17] LABS: COR CA(FOR HYPOALB) 9.7 mg/dL (8.5-10.1); CREATININE 0.80 mg/dL (0.70-1.30); eGFR NON BLACK RACES > 60 (>60)
[2025-05-09] MEDS: LR 1,000 ML IV 1,000 ML IV ONE (07:14)
[2025-05-09] MEDS: LR 1,000 ML IV 0 ML IV PRN (07:30)
[2025-05-09] MEDS: FENTANYL VIAL INJ 100 mcg IVP PRN ×2 (07:33→08:07)
[2025-05-09] MEDS: BETADINE SOLN ONE ×2 (07:35→08:03)
[2025-05-09] MEDS: VERSED IVP PRN (07:37)
[2025-05-09] MEDS: DIPRIVAN VIAL 0 ML IVP PRN (07:38)
[2025-05-09] MEDS: MARCAINE 0.25% INJ ONE (07:46)
[2025-05-09] MEDS: VANCOMYCIN HCL ONE (07:46)
--- NOTE | 2025-05-09 09:12 | DR.OPNOTE ---
OP NOTE Pre-Op Diagnosis: Dehiscence, right TMA site and PAD Post-Op Diagnosis: Dehiscence, right TMA site and PAD Procedure Date Date Of Procedure: 05/09/25 Procedure: Debridement of TMA site, right foot Type of Anesthesia: Local Findings: Surgeon: Bridgett Wylie D.P.M. Anesthesia: MAC with local. Hemostasis: Anatomical dissection. Estimated blood loss: < 10 mL Materials Vancomycin powder Indications This is a 69-year-old male patient who has significant peripheral arterial disease. He has had multiple interventions by Dr. Pastrana for bilateral extremities. The patient has significant issues with microvascular disease as well. The patient has dehiscence noted to his right TMA site. The patient is taken to the OR today for debridment to his transmetatarsal amputation on the right. The patient had presented with significant maceration and maggots present to his transmetatarsal amputation site of the right foot. WOund cultures were obtained on admission and grew MRSA as well as Stenotrophomonas maltophilia. Risks and potential complications including the need for the right below the knee amputations were discussed and the patient opted to proceed. Description of Procedure The patient was transported to the Operating Suite. The patient was secured in the supine position on the OR table. The above mentioned anesthesia was administered per the nurse cloth coverer. The foot was prepped and draped using betadine scrub. At this time, a timeout was performed. Attention was directed to the right lower extremity. Dehiscence was noted to almost the entirety of the incision site which is measured to be 10 cm x 8 mm. At this time, I made a minimal elliptical type incision surrounding the dehiscence of the incision site and removed it from the surgical site. Next, I created a fish mouth type incision and exposed the soft tissue around the prior amputation site. Hemostasis was maintained. I irrigated with Prontosan. Next, I did appreciate the previous drilled out holes from prior transmetatarsal amputation revision performed on 04/25/25 which still contain Cerament G down the canals of the metatarsals 1, 2, 3, 4, and 5. I then placed 1 g of Vancomycin powder inside the exposed surgical site. This was to help prevent infection as the patient has a history of infection, his wound cultures are susceptible to Vancomycin and the patient is a high-risk for infection and, therefore Vancomycin was applied in an effort to help combat this. I then used the previous created plantar flap and advanced it up over the top of the bones. I then reapproximated the deep tissue utilizing 3-0 Monocryl and it reapproximated nicely. I then reapproximated the skin utilizing 2-0 and 3-0 nylon in a combination of simple interrupted and vertical mattress suture type fashion. At this time, I did feel that there was a very nicely approximation. There did not appear to be any areas of ischemia or vascular congestion. At this time, I placed betadine adaptic, 4 x 4s, ABD, and a well-padded fiberglass posterior splint was applied to the extremity. The patient was dressed with a splint. He will be nonweightbearing and he will follow up with me as an outpatient. An antibiotic prescription was also sent to patients' pharmacy and this was discussed with the patient prior to surgical intervention. Specimen/Pathology: None Type of Fluids Used:: Normal Saline EBL: < 10 cc Drains/Tubes Placed: None Hardware: None Cultures: None Complications:: None Needle/Sponge Count:: None Disposition/Condition: Pt. tolerated procedure without difficulty. Extubated in the OR and taken to PACU in stable condition.
--- NOTE | 2025-05-09 11:47 | W.DIS.FURT ---
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 Patient also has had arterial intervention of the right leg and subsequent transmetatarsal amputation being cared for by Dr. Lewis . Patient presented to the emergency room with maggots from the right transmetatarsal amputation. These were cleansed off. Patient was started on antibiotics and admitted. Patient was seen by podiatry who debrided the transmetatarsal amputation site twice. The left above-knee amputation site looks good with no obvious maggot infestation. Subsequent wound cultures did grow MRSA sensitive to clindamycin and Stenotrophomonas malophilia sensitive only to Septra. Patient will be discharged on both of these antibiotics by mouth and follow-up with me in 1 week. They will have follow-up with the podiatry service as well. Vital Signs: Vital Signs (72 hours) 05/06/25 12:29 05/06/25 15:25 05/06/25 16:00 Temperature 97.7 F 98.6 F Pulse Rate Pulse Rate [Left] 86 98 H Respiratory Rate 17 19 16 Blood Pressure Blood Pressure [Left Arm] 124/85 109/51 O2 Sat by Pulse Oximetry 100 94 L Oxygen Delivery Method Room Air Room Air Oxygen Flow Rate FIO2% 05/06/25 16:25 05/06/25 17:05 05/06/25 18:22 Temperature Pulse Rate 80 Pulse Rate [Left] Respiratory Rate 19 19 Blood Pressure Blood Pressure [Left Arm] O2 Sat by Pulse Oximetry 94 L Oxygen Delivery Method Oxygen Flow Rate FIO2% 05/06/25 18:52 05/06/25 19:00 05/06/25 20:00 Temperature 98.0 F Pulse Rate Pulse Rate [Left] 96 H Respiratory Rate 18 18 Blood Pressure Blood Pressure [Left Arm] 119/60 O2 Sat by Pulse Oximetry 100 Oxygen Delivery Method Room Air Room Air Oxygen Flow Rate FIO2% 05/06/25 23:06 05/06/25 23:25 05/07/25 00:00 Temperature 98.0 F 98.6 F Pulse Rate 96 H Pulse Rate [Left] 90 Respiratory Rate 17 18 18 Blood Pressure 119/60 Blood Pressure [Left Arm] 135/65 O2 Sat by Pulse Oximetry 100 97 Oxygen Delivery Method Room Air Oxygen Flow Rate FIO2% 05/07/25 00:05 05/07/25 00:06 05/07/25 04:00 Temperature 98.0 F Pulse Rate 91 H Pulse Rate [Left] 88 Respiratory Rate 18 21 Blood Pressure Blood Pressure [Left Arm] 131/74 O2 Sat by Pulse Oximetry 98 96 Oxygen Delivery Method Room Air Oxygen Flow Rate FIO2% 05/07/25 05:11 05/07/25 06:11 05/07/25 08:00 Temperature 98.0 F Pulse Rate Pulse Rate [Left] 96 H Respiratory Rate 19 18 19 Blood Pressure Blood Pressure [Left Arm] 109/59 O2 Sat by Pulse Oximetry 97 Oxygen Delivery Method Room Air Oxygen Flow Rate FIO2% 05/07/25 08:09 05/07/25 08:39 05/07/25 08:53 Temperature Pulse Rate Pulse Rate [Left] Respiratory Rate 18 19 Blood Pressure Blood Pressure [Left Arm] O2 Sat by Pulse Oximetry Oxygen Delivery Method Room Air Oxygen Flow Rate FIO2% 05/07/25 12:00 05/07/25 13:40 05/07/25 14:40 Temperature 97.4 F L Pulse Rate Pulse Rate [Left] 92 H Respiratory Rate 19 19 19 Blood Pressure Blood Pressure [Left Arm] 116/55 O2 Sat by Pulse Oximetry 98 Oxygen Delivery Method Room Air Oxygen Flow Rate FIO2% 05/07/25 16:00 05/07/25 16:00 05/07/25 16:30 Temperature 98.1 F Pulse Rate Pulse Rate [Left] 98 H Respiratory Rate 20 20 20 Blood Pressure Blood Pressure [Left Arm] 106/54 O2 Sat by Pulse Oximetry 98 Oxygen Delivery Method Room Air Oxygen Flow Rate FIO2% 05/07/25 19:00 05/07/25 19:13 05/07/25 19:19 Temperature Pulse Rate Pulse Rate [Left] Respiratory Rate 19 Blood Pressure Blood Pressure [Left Arm] O2 Sat by Pulse Oximetry Oxygen Delivery Method Room Air Room Air Oxygen Flow Rate FIO2% 05/07/25 19:19 05/07/25 20:00 05/07/25 20:13 Temperature 97.8 F Pulse Rate 95 H Pulse Rate [Left] 100 H Respiratory Rate 20 19 Blood Pressure Blood Pressure [Left Arm] 114/70 O2 Sat by Pulse Oximetry 97 97 Oxygen Delivery Method Room Air Oxygen Flow Rate FIO2% 05/07/25 21:48 05/07/25 22:18 05/07/25 23:30 Temperature 98.4 F Pulse Rate Pulse Rate [Left] 95 H Respiratory Rate 18 20 19 Blood Pressure Blood Pressure [Left Arm] 114/63 O2 Sat by Pulse Oximetry 98 Oxygen Delivery Method Room Air Oxygen Flow Rate FIO2% 05/08/25 03:00 05/08/25 03:47 05/08/25 04:00 Temperature 98.1 F Pulse Rate Pulse Rate [Left] 89 Respiratory Rate 19 20 18 Blood Pressure Blood Pressure [Left Arm] 113/60 O2 Sat by Pulse Oximetry 95 Oxygen Delivery Method Room Air Oxygen Flow Rate FIO2% 05/08/25 04:33 05/08/25 05:03 05/08/25 08:00 Temperature 98.1 F Pulse Rate Pulse Rate [Left] 95 H Respiratory Rate 18 19 19 Blood Pressure Blood Pressure [Left Arm] 105/52 O2 Sat by Pulse Oximetry 97 Oxygen Delivery Method Room Air Oxygen Flow Rate FIO2% 05/08/25 08:27 05/08/25 10:13 05/08/25 10:35 Temperature Pulse Rate Pulse Rate [Left] Respiratory Rate 19 Blood Pressure Blood Pressure [Left Arm] O2 Sat by Pulse Oximetry Oxygen Delivery Method Room Air Room Air Oxygen Flow Rate FIO2% 05/08/25 11:13 05/08/25 11:36 05/08/25 12:06 Temperature Pulse Rate Pulse Rate [Left] Respiratory Rate 19 19 18 Blood Pressure Blood Pressure [Left Arm] O2 Sat by Pulse Oximetry Oxygen Delivery Method Oxygen Flow Rate FIO2% 05/08/25 13:18 05/08/25 14:39 05/08/25 15:39 Temperature 98.0 F Pulse Rate Pulse Rate [Left] 83 Respiratory Rate 19 19 100 H Blood Pressure Blood Pressure [Left Arm] 100/57 O2 Sat by Pulse Oximetry 97 Oxygen Delivery Method Room Air Oxygen Flow Rate FIO2% 05/08/25 16:00 05/08/25 18:00 05/08/25 18:04 Temperature 97.9 F 97.8 F 97.9 F Pulse Rate 95 H 91 H Pulse Rate [Left] 91 H Respiratory Rate 19 20 19 Blood Pressure 114/70 108/59 Blood Pressure [Left Arm] 108/59 O2 Sat by Pulse Oximetry 98 97 98 Oxygen Delivery Method Room Air Oxygen Flow Rate FIO2% 05/08/25 18:07 05/08/25 18:37 05/08/25 19:00 Temperature Pulse Rate Pulse Rate [Left] Respiratory Rate 18 19 Blood Pressure Blood Pressure [Left Arm] O2 Sat by Pulse Oximetry Oxygen Delivery Method Room Air Oxygen Flow Rate FIO2% 05/08/25 19:57 05/08/25 21:45 05/08/25 22:45 Temperature 97.6 F Pulse Rate Pulse Rate [Left] 87 Respiratory Rate 17 18 19 Blood Pressure Blood Pressure [Left Arm] 103/68 O2 Sat by Pulse Oximetry 98 Oxygen Delivery Method Room Air Oxygen Flow Rate FIO2% 05/08/25 23:36 05/09/25 00:07 05/09/25 00:45 Temperature 98.3 F Pulse Rate 84 Pulse Rate [Left] 89 Respiratory Rate 17 18 Blood Pressure Blood Pressure [Left Arm] 101/51 O2 Sat by Pulse Oximetry 97 97 Oxygen Delivery Method Room Air Oxygen Flow Rate FIO2% 05/09/25 01:15 05/09/25 04:00 05/09/25 07:00 Temperature 98.1 F Pulse Rate Pulse Rate [Left] 87 Respiratory Rate 18 18 Blood Pressure Blood Pressure [Left Arm] 110/56 O2 Sat by Pulse Oximetry 97 Oxygen Delivery Method Room Air Room Air Oxygen Flow Rate FIO2% 05/09/25 07:18 05/09/25 08:20 05/09/25 08:30 Temperature 97.6 F 97.1 F L Pulse Rate 90 Pulse Rate [Left] 85 Respiratory Rate 18 18 Blood Pressure 125/73 Blood Pressure [Left Arm] 115/61 O2 Sat by Pulse Oximetry 95 100 Oxygen Delivery Method Room Air Nasal Cannula Oxygen Flow Rate 2 FIO2% 28 05/09/25 08:35 05/09/25 08:50 05/09/25 09:05 Temperature 97.2 F L 97.3 F L 97.6 F Pulse Rate Pulse Rate [Left] 90 85 83 Respiratory Rate 20 18 19 Blood Pressure Blood Pressure [Left Arm] 126/77 119/64 121/60 O2 Sat by Pulse Oximetry 100 99 98 Oxygen Delivery Method Oxygen Flow Rate FIO2% 05/09/25 09:20 Temperature 97.5 F L Pulse Rate Pulse Rate [Left] 80 Respiratory Rate 20 Blood Pressure Blood Pressure [Left Arm] 134/88 O2 Sat by Pulse Oximetry 99 Oxygen Delivery Method Oxygen Flow Rate FIO2% Labs: Laboratory Last Values WBC 6.4 X10^3/uL (3.6-10.0) 05/09/25 05:29 RBC 3.20 X10^6/uL (4.7-6.0) L 05/09/25 05:29 Hgb 9.6 g/dL (13.5-18.0) L 05/09/25 05:29 Hct 29.1 % (42.0-54.0) L 05/09/25 05:29 MCV 91.0 fL (80.0-100.0) 05/09/25 05:29 MCH 29.9 pg (27.0-34.0) 05/09/25 05: MCHC 32.9 g/dL (33.0-35.0) L 05/09/25 05:29 RDW 17.4 % (11.6-16.5) H 05/09/25 05:29 Plt Count 296 X10^3/uL (150.0-450.0) 05/09/25 05:29 MPV 7.6 fL (7.4-11.0) 05/09/25 05:29 Neut % (Auto) 73.4 % (42.0-75.0) 05/09/25 05:29 Lymph % (Auto) 15.1 % (21.0-51.0) L 05/09/25 05:29 [place] % (Auto) 8.4 % (0.0-13.0) 05/09/25 05:29 Eos % (Auto) 2.2 % (0.9-2.9) 05/09/25 05:29 Baso % (Auto) 0.9 % (0.2-1.0) 05/09/25 05:29 Neut # (Auto) 4.7 x10^3/uL (2.2-4.8) 05/09/25 05:29 Lymph # (Auto) 1.0 X10^3/uL (1.3-2.9) L 05/09/25 05:29 [place] # (Auto) 0.5 x10^3/uL (0.3-0.8) 05/09/25 05:29 Eos # (Auto) 0.1 x10^3/uL (0.0-0.2) 05/09/25 05:29 Baso # (Auto) 0.1 X10^3/uL (0.0-0.1) 05/09/25 05:29 Absolute Nucleated RBC 0.0 /100WBC 05/09/25 05:29 Sodium 134 mmol/L (136-145) L 05/09/25 05:29 Corrected Sodium TNP 05/09/25 05:29 Potassium 4.2 mmol/L (3.5-5.1) 05/09/25 05:29 Chloride 99 mmol/L (98-107) 05/09/25 05:29 Carbon Dioxide 28.7 mmol/L (21-32) 05/09/25 05:29 BUN 11 mg/dL (7-18) 05/09/25 05:29 Creatinine 0.80 mg/dL (0.70-1.30) 05/09/25 05:29 Est GFR (MDRD) Af Amer > 60 (>60) 05/09/25 05:29 Est GFR (MDRD) Non-Af > 60 (>60) 05/09/25 05:29 Glucose 109 mg/dL (65-99) H 05/09/25 05:29 Calcium 8.5 mg/dL (8.5-10.1) 05/09/25 05:29 Corrected Calcium 9.7 mg/dL (8.5-10.1) 05/09/25 05:29 Magnesium 2.1 mg/dL (2.0-2.9) 05/09/25 05:29 Total Bilirubin 0.60 mg/dL (0.2-1.0) 05/09/25 05:29 AST 16 Units/L (15-37) 05/09/25 05:29 ALT 16 Units/L (12-78) 05/09/25 05:29 Alkaline Phosphatase 83 Units/L (46-116) 05/09/25 05:29 Total Protein 7.2 g/dL (6.4-8.2) 05/09/25 05:29 Albumin 2.5 g/dL (3.4-5.0) L 05/09/25 05:29 Globulin 4.7 g/dL (2.5-4.5) H 05/09/25 05:29 Albumin/Globulin Ratio 0.5 Ratio (1.1-2.1) L 05/09/25 05:29 Reason For Visit: WOUND DEHISCENCE OF RIGHT LOWER EXTREMITY Discharge Date Discharge Date: 05/09/25 Discharge Diagnosis All Active Problems (Updated 05/05/25 @ 20:13 by Kei Holcomb) Dehiscence of wound (Acute) Dehiscence of amputation stump of right lower extremity (Acute) Gangrene due to arterial insufficiency (Acute) Personal history of lung cancer (Acute) Essential (primary) hypertension (Acute) Congestive heart disease (Acute) Atherosclerosis of [place] arteries of extremities with rest pain, right leg (Acute) Atherosclerosis of [place] arteries of extremities with rest pain, left leg (Acute) Plan of Treatment: Continue with present treatment and follow up plan. Pt is to keep follow up appointment as instructed and take medications as ordered. 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 Patient also has had arterial intervention of the right leg and subsequent transmetatarsal amputation being cared for by Dr. Lewis . Patient presented to the emergency room with maggots from the right transmetatarsal amputation. These were cleansed off. Patient was started on antibiotics and admitted. Patient was seen by podiatry who debrided the transmetatarsal amputation site twice. The left above-knee amputation site looks good with no obvious maggot infestation. Subsequent wound cultures did grow MRSA sensitive to clindamycin and Stenotrophomonas malophilia sensitive only to Septra. Patient will be disc harged on both of these antibiotics by mouth and follow-up with me in 1 week. They will have follow-up with the podiatry service as well. Patient Disposition: HOME HEALTH SERVICE Condition: Stable Health Concerns: Post Hospitalization: new medications and changes needed to prevent readmission or further decline. Pt educated and given instructions on all concerns. Care Plan Goals: Problem: Pain/Alteration in Comfort Goal: Improve/ Resolve Pain; Achieve Pain Tolerance Instructions: Take pain medications as prescribed. Contact your primary care provider if your pain is unrelieved or worsens. Follow up with primary care provider as directed. Plan of Treatment: Continue with present treatment and follow up plan. Pt is to keep follow up appointment as instructed and take medications as ordered. Assessment: see hospital course Prescription drug monitoring program results: PDMP was not reviewed Prescriptions: New clindamycin HCl [Cleocin HCl] 150 mg capsule 150 mg PO TID Qty: 30 0RF sulfamethoxazole-trimethoprim [Bactrim DS] 800-160 mg tablet 1 tab PO BID Qty: 20 0RF oxycodone-acetaminophen [Percocet] 5-325 mg tablet 1 tab PO Q6H MDD 4 PRNQty: 30 0RF Continued clopidogrel [Plavix] 75 mg Tablet 75 mg PO DAILY spironolactone [Aldactone] 25 mg Tablet 25 mg PO DAILY albuterol sulfate 2.5 mg /3 mL (0.083 %) Solution For Nebulization 2.5 mg continuous nebulization Q6H PRN tramadol 50 mg Tablet 50 mg PO Q4H PRN carvedilol [Coreg] 12.5 mg Tablet 12.5 mg PO BID Rx Instructions: must administer with a meal/food oxycodone-acetaminophen [Percocet] 5-325 mg tablet 1 tab PO Q6H MDD 4 PRNQty: 30 0RF Follow ups/Referrals Follow ups/Referrals: Mario Lewis [CONSULTING PHYSICIAN, Unknown] - 05/16/25 1:30 pm Cisco Pastrana [STAFF PHYSICIAN, Unknown] - 05/25/25 1:45 pm Instructions Instructions: Wound Dehiscence, [id number] Stand Alone Forms: Excuse From Work or School, Find Help Web Site, Post Hospital Follow Up Care Print Language: PAKISTANI
[2025-05-09 12:16] VITALS: BP 121/71; PULSE 84; RESP 17; TEMP 97.6; O2SAT 100
== END 2025-05-09 13:05 | disposition home health service (06) | DRG 565 ==
LOC: ER 18:05 → MED/SURG 18:05 → OBSVTOIN 20:13 → MED/SURG 21:07
PROVIDERS: ADMIT Surgery; ATTEND Surgery
PROC: DEBRIDE (2025-05-09 07:45)
DX: Z16.23 Resistance to quinolones and fluoroquinolones; G54.6 Phantom limb syndrome with pain; I25.10 Atherosclerotic heart disease of native coronary artery without angina pectoris; Z16.12 Extended spectrum beta lactamase (ESBL) resistance; T87.81 Dehiscence of amputation stump; I70.223 Atherosclerosis of native arteries of extremities with rest pain, bilateral legs; J44.9 Chronic obstructive pulmonary disease, unspecified; E87.1 Hypo-osmolality and hyponatremia; I96 Gangrene, not elsewhere classified; D64.89 Other specified anemias; E83.42 Hypomagnesemia; Z59.868 Other specified financial insecurity; Z89.421 Acquired absence of other right toe(s); B95.62 Methicillin resistant Staphylococcus aureus infection as the cause of diseases classified elsewhere; E83.51 Hypocalcemia; Z85.118 Personal history of other malignant neoplasm of bronchus and lung; Z89.612 Acquired absence of left leg above knee; Z29.89 Encounter for other specified prophylactic measures; Z16.29 Resistance to other single specified antibiotic; T81.30XA Disruption of wound, unspecified, initial encounter; Z89.411 Acquired absence of right great toe; B96.5 Pseudomonas (aeruginosa) (mallei) (pseudomallei) as the cause of diseases classified elsewhere; I50.9 Heart failure, unspecified; R73.09 Other abnormal glucose; Z90.2 Acquired absence of lung [part of]; I11.0 Hypertensive heart disease with heart failure; B87.1 Wound myiasis

== ENCOUNTER 2025-06-04 13:26 | Inpatient (IN) ==
--- NOTE | 2025-06-04 13:48 | DR.EXTPAIN ---
HPI Time seen Time Seen by Provider: 06/04/25 13:46 HPI Comment HPI Comment: Patient is 69-year-old male with history of CHF, COPD,HTN, PAD who presents to the ED with complaint of weakness, shortness of breath, with right leg swelling. Symptoms started a few days ago and progressively got worse.He feels tired and fatigued. He feels like he is short winded easily. Patient states that he has a left AKA wound and a right TMA wound that he has been treating himself. He just changed the dressing the day before yesterday. He has been using Betadine and gauze. His friend noticed a foul odor coming from the right foot. He is not currently on any IV antibiotics. He denies any fevers, chills, NVD, CP. PMH PMH Past Medical History: CHF, COPD, Coronary Artery Disease and Hypertension Past Surgical History: Yes Surgical History: Angioplasty/Stents, Ortho Surgery and Tonsillectomy Family History Family Medical History: Diabetes Mellitus and Heart Failure Social History Do you use any recreational Drugs:: No ROS Review of Systems All Other Systems: Reviewed and Negative PE Vital Signs Vitals: Vital Signs Temperature 97.8 F Pulse Rate 110 Pulse Rate 106 Pulse Rate 113 Pulse Rate 103 Pulse Rate 118 Pulse Rate 102 Pulse Rate 103 Pulse Rate 109 Pulse Rate 108 Respiratory Rate 27 Respiratory Rate 23 Blood Pressure 146/81 Blood Pressure 148/78 Blood Pressure 159/79 Blood Pressure 123/59 Blood Pressure 116/82 O2 Sat by Pulse Oximetry 97 O2 Sat by Pulse Oximetry 97 O2 Sat by Pulse Oximetry 98 O2 Sat by Pulse Oximetry 96 O2 Sat by Pulse Oximetry 98 O2 Sat by Pulse Oximetry 99 O2 Sat by Pulse Oximetry 99 O2 Sat by Pulse Oximetry 100 Other Exam Other Exam: GEN: Lying comfortably on exam bed in NAD Eyes:Mild scleral icterus, EOMI HEART: RRR LUNGS: CTABL ABD: Soft, non tender, non distended, BS normal SKIN: Mild jaundice appreciated on the head and face. CV: Radial pulse 2+ bilaterally EXTREMITIES: Left AKA: Incision site with mild dehiscence on the lateral poles. Yellow slough appreciated. Wound does track medially. Right TMA: Surgical dehiscence appreciated. 8 sutures still intact on the medial aspect of the foot. Copious amounts of necrotic slough appreciated. Fetid odor appreciated. Erythematous dorsal foot. Tender to palpation. MDM Differential Diagnosis Differential Diagnosis: Other (Sepsis secondary to right foot wound, CHF exacerbation, COPD exacerbation, URI) COURSE Treatment Treatment: Ordered CBC, CMP, lactic acid, blood cultures, chest x-ray, abdomen CT,Cardiac workup including troponin, BNP, and D-dimer. Pt was started on IVF. ROR Labs Reviewed 06/04/25 13:47 06/04/25 13:47 Laboratory: WBC 8.1 X10^3/uL (3.6-10.0) 06/04/25 13:47 RBC 3.10 X10^6/uL (4.7-6.0) L 06/04/25 13:47 Hgb 9.7 g/dL (13.5-18.0) L 06/04/25 13:47 Hct 28.4 % (42.0-54.0) L 06/04/25 13:47 MCV 91.7 fL (80.0-100.0) 06/04/25 13:47 MCH 31.4 pg (27.0-34.0) 06/04/25 13:47 MCHC 34.2 g/dL (33.0-35.0) 06/04/25 13:47 RDW 16.4 % (11.6-16.5) 06/04/25 13:47 Plt Count 197 X10^3/uL (150.0-450.0) 06/04/25 13:47 MPV 8.4 fL (7.4-11.0) 06/04/25 13:47 Neut % (Auto) 75.3 % (42.0-75.0) H 06/04/25 13:47 Lymph % (Auto) 13.7 % (21.0-51.0) L 06/04/25 13:47 [place] % (Auto) 9.8 % (0.0-13.0) 06/04/25 13:47 Eos % (Auto) 0.2 % (0.9-2.9) L 06/04/25 13:47 Baso % (Auto) 1.0 % (0.2-1.0) 06/04/25 13:47 Neut # (Auto) 6.1 x10^3/uL (2.2-4.8) H 06/04/25 13:47 Lymph # (Auto) 1.1 X10^3/uL (1.3-2.9) L 06/04/25 13:47 [place]are # (Auto) 0.8 x10^3/uL (0.3-0.8) 06/04/25 13:47 Eos # (Auto) 0.0 x10^3/uL (0.0-0.2) 06/04/25 13:47 Baso # (Auto) 0.1 X10^3/uL (0.0-0.1) 06/04/25 13:47 Absolute Nucleated RBC 0.1 /100WBC 06/04/25 13:47 PT 16.3 SECONDS (11.8-14.3) 06/04/25 13:47 INR Target Range - 06/04/25 13:47 INR 1.29 (0.8-1.3) 06/04/25 13:47 APTT 32.3 SECONDS (22.9-36.5) 06/04/25 13:47 PTT Comment - 06/04/25 13:47 Sodium 133 mmol/L (136-145) L 06/04/25 13:47 Corrected Sodium 134 mmol/L (136-145) L 06/04/25 13:47 Potassium 4.0 mmol/L (3.5-5.1) 06/04/25 13:47 Chloride 98 mmol/L (98-107) 06/04/25 13:47 Carbon Dioxide 21.0 mmol/L (21-32) 06/04/25 13:47 BUN 11 mg/dL (7-18) 06/04/25 13:47 Creatinine 0.95 mg/dL (0.70-1.30) 06/04/25 13:47 Est GFR (MDRD) Af Amer > 60 (>60) 06/04/25 13:47 Est GFR (MDRD) Non-Af > 60 (>60) 06/04/25 13:47 Glucose 155 mg/dL (65-99) H 06/04/25 13:47 Calcium 8.6 mg/dL (8.5-10.1) 06/04/25 13:47 Corrected Calcium 9.6 mg/dL (8.5-10.1) 06/04/25 13:47 Magnesium 1.5 mg/dL (2.0-2.9) L 06/04/25 13:47 Total Bilirubin 0.70 mg/dL (0.2-1.0) 06/04/25 13:47 AST 13 Units/L (15-37) L 06/04/25 13:47 ALT 9 Units/L (12-78) L 06/04/25 13:47 Alkaline Phosphatase 119 Units/L (46-116) H 06/04/25 13:47 Creatine Kinase 21 Units/L (39-308) L 06/04/25 13:47 Troponin I High Sens 26.7 ng/L (4.0-60.0) 06/04/25 13:47 B-Natriuretic Peptide 2560 pg/mL (0-79) H 06/04/25 13:47 Total Protein 7.2 g/dL (6.4-8.2) 06/04/25 13:47 Albumin 2.8 g/dL (3.4-5.0) L 06/04/25 13:47 Globulin 4.4 g/dL (2.5-4.5) 06/04/25 13:47 Albumin/Globulin Ratio 0.6 Ratio (1.1-2.1) L 06/04/25 13:47 EKG Rate: 103 [place]: Normal Rhythm: ST ST: Normal Opioid Opioid Risk Tool Age (Justin box if 16-45): No History of Preadolescent Sexual Abuse: No Total: 0 Total Score Risk Category: Low Risk Copyright: Otilio SIMONS predicting aberrant behaviors Discharge Plan Diagnosis Discharge Problem: Sepsis, Acute exacerbation of CHF (congestive heart failure) Discharge Plan Patient Disposition: 09 ADMITTED INPATIENT Condition: Stable Prescriptions: No Action clopidogrel [Plavix] 75 mg Tablet 75 mg PO DAILY spironolactone [Aldactone] 25 mg Tablet 25 mg PO DAILY albuterol sulfate 2.5 mg /3 mL (0.083 %) Solution For Nebulization 2.5 mg continuous nebulization Q6H PRN tramadol 50 mg Tablet 50 mg PO Q4H PRN clindamycin HCl [Cleocin HCl] 150 mg capsule 150 mg PO TID Qty: 30 0RF sulfamethoxazole-trimethoprim [Bactrim DS] 800-160 mg tablet 1 tab PO BID Qty: 20 0RF oxycodone-acetaminophen [Percocet] 5-325 mg tablet 1 tab PO Q6H MDD 4 PRNQty: 30 0RF carvedilol [Coreg] 12.5 mg Tablet 12.5 mg PO BID Rx Instructions: must administer with a meal/food oxycodone-acetaminophen [Percocet] 5-325 mg tablet 1 tab PO Q6H MDD 4 PRNQty: 30 0RF Health Concerns: Post Hospitalization: new medications and changes needed to prevent readmission or further decline. Pt educated and given instructions on all concerns. Plan of Treatment: Continue with present treatment and follow up plan. Pt is to keep follow up appointment as instructed and take medications as ordered. Orders to Discharge Patient Discharge Orders: Transfer (Routine); Ordered 06/04/25 Ordered By: Karel Saldivar Follow ups/Referrals Follow ups/Referrals: ALEX,None [STAFF PHYSICIAN] - 3 days Instructions Stand Alone Forms: Find Help Web Site, Post Hospital Follow Up Care Print Language: [place] Provider Note Additional Notes Patient is a 69-year-old male with history of PAD and CHF who presented for feelings of shortness of breath leg swelling. Vital signs on admission revealed tachycardia and tachypnea. Physical exam was remarkable for a right leg or leg swelling and necrotic foul-smelling slough in his right TMA site. Patient's wounds were cleaned at bedside with Hibiclens and normal saline. Clean dressing with Neosporin was applied. BNP was elevated above 2000. Hospitalist called for CHF exacerbation. No fluids were given at this time. Patient complained of progressive persistent shortness of breath. He was given 20 mg of Lasix. He was started on IV antibiotics vancomycin and Zosyn. Dr. Sierra was consulted for admission. Patient will be admitted for observation and further medical workup.
[2025-06-04 14:02] LABS: MEAN PLATELET VOLUME 8.4 fL (7.4-11.0); RED CELL DISTRIBUTION WIDTH 16.4 % (11.6-16.5)
[2025-06-04 14:04] LABS: INR 1.29 (0.8-1.3)
--- NOTE | 2025-06-04 14:05 | EKG ---
Test Reason : short of breath Blood Pressure : */* mmHG Vent. Rate : 103 BPM Atrial Rate : 103 BPM P-R Int : 118 ms QRS Dur : 92 ms QT Int : 362 ms P-R-T Axes : -18 78 195 degrees QTc Int : 474 ms Sinus tachycardia with occasional premature ventricular complexes Abnormal ECG When compared with ECG of 25-FEB-2025 10:45, QRS duration has decreased Confirmed by Dylan Willis MD ([id number]) on 06/05/2025 6:41:50 AM Referred By: Confirmed By: Dylan Willis MD
[2025-06-04 14:11] LABS: COR CA(FOR HYPOALB) 9.6 mg/dL (8.5-10.1); COR NA(FOR HYPERGLY) 134 mmol/L (136-145); CREATININE 0.95 mg/dL (0.70-1.30); eGFR NON BLACK RACES > 60 (>60)
[2025-06-04] MEDS: LASIX IVP ONE (15:06)
[2025-06-04] MEDS: ZOSYN VIAL 3.375 GRAMS 3.375 G in NS 100 ML IV 100 ML IV ONE (15:21)
[2025-06-04] MEDS ORDERED: TYLENOL 325 MG TAB PO PRN (15:35)
--- NOTE | 2025-06-04 15:39 | RAD ---
EXAM: CHEST HISTORY: Shortness of Breath; COMPARISON: February 25, 2025. TECHNIQUE: Frontal view of the chest was submitted for interpretation. FINDINGS: Right PICC line tip overlies the superior right atrium. The cardiomediastinal silhouette is enlarged. Pulmonary edema noted. IMPRESSION: Cardiomegaly and pulmonary edema. New right PICC line tip overlies the superior right atrium. THIS IS AN ELECTRONICALLY VERIFIED FINAL REPORT 06/04/2025 3:36 PM - Electronically signed by Vasyl Fitch MD
--- NOTE | 2025-06-04 15:40 | RAD ---
EXAM: Left femur two views HISTORY: pain, swelling, inflammation at L AKA; COMPARISON: None. TECHNIQUE: 2 views were submitted for interpretation. FINDINGS: Mild hip osteoarthritis. Postoperative changes of above the knee amputation noted. Vascular calcifications are noted. No displaced fracture. No suspicious lytic or blastic lesions. IMPRESSION: Postoperative changes of above the knee amputation noted. No definite evidence complication. If indicated, evaluation with MRI should be considered. THIS IS AN ELECTRONICALLY VERIFIED FINAL REPORT 06/04/2025 3:37 PM - Electronically signed by Vasyl Fitch MD
--- NOTE | 2025-06-04 15:41 | RAD ---
EXAM: Right foot two views HISTORY: infection/open wound at right TMA; COMPARISON: May 06, 2025. TECHNIQUE: 2 views were submitted for interpretation. FINDINGS: Postoperative changes of proximal shaft transmetatarsal amputation noted at the forefoot. There is a large lateral forefoot soft tissue ulcer which has increased in volume when compared to previous examination with progressive adjacent soft tissue swelling. Vascular calcifications are noted. No displaced fracture. IMPRESSION: Amputation changes noted at the forefoot. Large ulcer at the lateral forefoot is noted with increased soft tissue gas, within close proximity to the cut ends of the 2nd through 5th metatarsals. Findings are suspicious for possible osteomyelitis and should be evaluated with MRI if indicated. THIS IS AN ELECTRONICALLY VERIFIED FINAL REPORT 06/04/2025 3:38 PM - Electronically signed by Vasyl Fitch MD
--- NOTE | 2025-06-04 15:50 | CT ---
EXAM: ABDOMEN/PELVIS W/O CON HISTORY: RUQ tenderness, jaundiced; COMPARISON: CTA 04/12/2025 TECHNIQUE: Multiple CT axial images of the abdomen and pelvis were obtained without IV contrast. Coronal and sagittal images were reconstructed. Dose reduction techniques included Automated Exposure Control (AEC) and adjustment of mA and kV. FINDINGS: Cardiomegaly is present. Atherosclerotic calcification is present in the coronary arteries. Very small left and trace right pleural effusions are present. These are new since the prior study. Lung bases otherwise clear. The liver is normal in size and configuration. My sensitivity for findings small liver lesions is decreased due to the lack of IV contrast. The gallbladder has no edema around it. No calcified gallstones. The spleen is normal in size and shape. The adrenal glands are normal. The pancreas is normal. No obvious pancreatic mass. No biliary dilatation. Stone upper left kidney measures 7 mm. Bilateral vascular calcifications are seen in the renal candice. The kidneys have normal size and shape. There is no hydronephrosis or significant perirenal edema. The bladder has normal distention. It has no wall thickening or perivesical edema. The bowel is not dilated. There is no wall thickening in the bowel or edema around the bowel. The appendix is normal in size with no inflammation around it. No evidence of appendicitis. Presacral edema is unchanged from prior exams. I do not see an etiology for this. There is yamini hepatic fluid anteriorly which has increased since March 2025. The fluid collection is still very small however. The bones are demineralized. No suspicious bone lesions. IMPRESSION: 1. No etiology for jaundice 2. Small volume perihepatic fluid, increased from prior study 3. Nonobstructing left renal calculus 4. Bilateral effusions, new since prior study 5. Cardiomegaly with CAD 6. Unchanged presacral edema THIS IS AN ELECTRONICALLY VERIFIED FINAL REPORT 06/04/2025 3:47 PM - Electronically signed by Khris Leyva MD
[2025-06-04] MEDS ORDERED: CONSULT PHARMACY - POTASSIUM & MAGNESIUM XX SCH (16:00)
[2025-06-04 17:46] VITALS: BMI 25.2
[2025-06-04] MEDS: NEOSPORIN OINT ONE (18:07)
[2025-06-04] MEDS: HIBICLENS WASH ONE (18:07)
[2025-06-04] MEDS: LASIX ONE (18:07)
[2025-06-04] MEDS: MAXIPIME VIAL 1 GRAM 1 G in NS 50 ML IV 50 ML IV SCH (18:24)
[2025-06-04] MEDS: NS 250 ML IV 25 ML IV PRN (18:24)
[2025-06-04] MEDS: MORPHINE SULFATE INJ 2 MG INJ IVP PRN (18:25)
[2025-06-04] MEDS: PROVENTIL NEB TX 0.083% 2.5MG/ 3ML NEB PRN (20:18)
[2025-06-04] MEDS: VANCOMYCIN IV *PREMIX 1 G/200 ML BAG 1 G/200 ML PIGGYBACK IV SCH (21:02)
[2025-06-05] MEDS: MAXIPIME VIAL 1 GRAM 1 G in NS 50 ML IV 50 ML IV SCH (00:12)
[2025-06-05 05:18] LABS: MEAN PLATELET VOLUME 8.2 fL (7.4-11.0); RED CELL DISTRIBUTION WIDTH 16.7 % (11.6-16.5)
[2025-06-05 05:21] LABS: COR CA(FOR HYPOALB) 9.7 mg/dL (8.5-10.1); COR NA(FOR HYPERGLY) 136 mmol/L (136-145); CREATININE 0.85 mg/dL (0.70-1.30); eGFR NON BLACK RACES > 60 (>60)
[2025-06-05] MEDS ORDERED: CONSULT PHARMACY - POTASSIUM & MAGNESIUM XX SCH (06:00)
[2025-06-05] MEDS ORDERED: K-DUR TAB 20 MEQ PO SCH (09:00)
[2025-06-05] MEDS: ALDACTONE TAB 25 MG PO SCH (11:59)
[2025-06-05] MEDS: FARXIGA PO SCH (12:00)
[2025-06-05] MEDS ORDERED: NS 250 ML IV 250 ML IV ONE (12:07)
[2025-06-05] MEDS: MAG-OX TAB ONE (12:10)
[2025-06-05] MEDS: MAG-OX TAB PO SCH ×2 (12:10→14:32)
--- NOTE | 2025-06-05 13:57 | DR.H&P ---
H&P History & Physical for Day of: H&P Date: 06/05/25 Chief Complaint Chief Complaint: leg swelling History of Present Illness History of Present Illness: Patient with multiple health issues presented to the ER yesterday after his right TMA wound started to look worse. He also had increased swelling, streaking, and pain in that right foot. He had a TMA earlier this year with podiatry and a left AKA with surgery. Did have a fall that caused a revision of the left stump. He was told earlier this year that he needed to have a CABG, but that is been put on hold due to his gangrene and osteomyelitis of his extremities. Also reports vascular issues in bilateral hands and fingers. He reports he rested well and pain is better today. He was started on IV antibiotics after admission. Surgery is planning on a right BKA versus AKA tomorrow. He will need an updated echo before that. He denies any current chest pain, dyspnea, vision changes, or headache. ROS: 12 point ROS negative except as noted above. PE: Well-developed, well-nourished male in no acute distress. Sitting on the edge of his bed without assistance. Head NCAT with hearing grossly normal. Heart regular rate and rhythm with clear lungs. Speech is unlabored and strong. Belly is soft, nontender, nondistended with bowel sounds present. Mood and affect are appropriate. Left AKA stump with slight dehiscence but good granulation tissue and no erythema or increased warmth. Right foot with clean, dry dressing, no streaking up the lower leg, and improved edema. Past Medical History Past Medical History: CHF, COPD, Coronary Artery Disease and Hypertension Additional Medical History: History of right lung cancer resected thorocoscopically . No adjuvant treatment given or required. Past Surgical History Surgical History: Angioplasty/Stents, Ortho Surgery, Tonsillectomy and Other (Right foot TMA, left AKA) Family History Family Medical History: Diabetes Mellitus Social History Does patient currently use any type of tobacco product: No Type of Tobacco Use: None How many years tobacco product used: 50 Does any household member use tobacco: Yes Alcohol Use: Rarely Drug Use: Marijuana Medications Home Medications: Home Medications Medication Instructions Recorded Confirmed Type carvedilol 12.5 mg tablet (Coreg) 12.5 mg PO BID 11/2906/04/25 History clopidogrel 75 mg tablet (Plavix) 75 mg PO DAILY 03/0806/04/25 History spironolactone 25 mg tablet 25 mg PO DAILY 03/24/25 History (Aldactone) albuterol sulfate 2.5 mg/3 mL 2.5 mg continuous nebuli zation Q6H 04/08/25 06/04/25 History (0.083 %) solution for nebulization PRN aspirin 81 mg tablet 81 mg PO QDAY 06/04/2506/04 History cefepime 2 gram intravenous 2 g IV Q12H 06/04/2506/04 History piggyback Allergies Allergies Allergy/AdvReac Type Severity Reaction Status Date / Time pregabalin (From Lyrica) AdvReac Severe Verified 06/04/25 14:41 gabapentin AdvReac Intermediate Verified 06/04/25 14:41 Labs 06/05/25 04:17 06/05/25 04:17 Labs: Laboratory WBC 7.4 X10^3/uL (3.6-10.0) 06/05/25 04:17 RBC 3.08 X10^6/uL (4.7-6.0) L 06/05/25 04:17 Hgb 9.6 g/dL (13.5-18.0) L 06/05/25 04:17 Hct 28.4 % (42.0-54.0) L 06/05/25 04:17 MCV 92.1 fL (80.0-100.0) 06/05/25 04:17 MCH 31.3 pg (27.0-34.0) 06/05/25 04:17 MCHC 34.0 g/dL (33.0-35.0) 06/05/25 04:17 RDW 16.7 % (11.6-16.5) H 06/05/25 04:17 Plt Count 204 X10^3/uL (150.0-450.0) 06/05/25 04:17 MPV 8.2 fL (7.4-11.0) 06/05/25 04:17 Neut % (Auto) 63.9 % (42.0-75.0) 06/05/25 04:17 Lymph % (Auto) 20.2 % (21.0-51.0) L 06/05/25 04:17 [place] % (Auto) 14.3 % (0.0-13.0) H 06/05/25 04:17 Eos % (Auto) 0.8 % (0.9-2.9) L 06/05/25 04:17 Baso % (Auto) 0.8 % (0.2-1.0) 06/05/25 04:17 Neut # (Auto) 4.7 x10^3/uL (2.2-4.8) 06/05/25 04:17 Lymph # (Auto) 1.5 X10^3/uL (1.3-2.9) 06/05/25 04:17 [place] # (Auto) 1.0 x10^3/uL (0.3-0.8) H 06/05/25 04:17 Eos # (Auto) 0.1 x10^3/uL (0.0-0.2) 06/05/25 04:17 Baso # (Auto) 0.1 X10^3/uL (0.0-0.1) 06/05/25 04:17 Absolute Nucleated RBC 0.1 /100WBC 06/05/25 04:17 PT 16.3 SECONDS (11.8-14.3) 06/04/25 13:47 INR Target Range - 06/04/25 13:47 INR 1.29 (0.8-1.3) 06/04/25 13:47 APTT 32.3 SECONDS (22.9-36.5) 06/04/25 13:47 PTT Comment - 06/04/25 13:47 Sodium 135 mmol/L (136-145) L 06/05/25 04:17 Corrected Sodium 136 mmol/L (136-145) 06/05/25 04:17 Potassium 3.7 mmol/L (3.5-5.1) 06/05/25 04:17 Chloride 99 mmol/L (98-107) 06/05/25 04:17 Carbon Dioxide 26.9 mmol/L (21-32) 06/05/25 04:17 BUN 12 mg/dL (7-18) 06/05/25 04:17 Creatinine 0.85 mg/dL (0.70-1.30) 06/05/25 04:17 Est GFR (MDRD) Af Amer > 60 (>60) 06/05/25 04:17 Est GFR (MDRD) Non-Af > 60 (>60) 06/05/25 04:17 Glucose 125 mg/dL (65-99) H 06/05/25 04:17 Lactic Acid 1.7 mmol/L (0.4-2.0) 06/04/25 14:01 Calcium 8.7 mg/dL (8.5-10.1) 06/05/25 04:17 Corrected Calcium 9.7 mg/dL (8.5-10.1) 06/05/25 04:17 Magnesium 1.7 mg/dL (2.0-2.9) L 06/05/25 04:17 Total Bilirubin 0.80 mg/dL (0.2-1.0) 06/05/25 04:17 AST 13 Units/L (15-37) L 06/05/25 04:17 ALT 13 Units/L (12-78) 06/05/25 04:17 Alkaline Phosphatase 109 Units/L (46-116) 06/05/25 04:17 Creatine Kinase 21 Units/L (39-308) L 06/04/25 13:47 Troponin I High Sens 26.7 ng/L (4.0-60.0) 06/04/25 13:47 B-Natriuretic Peptide 2560 pg/mL (0-79) H 06/04/25 13:47 Total Protein 7.2 g/dL (6.4-8.2) 06/05/25 04:17 Albumin 2.7 g/dL (3.4-5.0) L 06/05/25 04:17 Globulin 4.5 g/dL (2.5-4.5) 06/05/25 04:17 Albumin/Globulin Ratio 0.6 Ratio (1.1-2.1) L 06/05/25 04:17 Physical Exam Vital Signs: Vital Signs Temperature 98.1 F Temperature 98.1 F Pulse Rate [Left Brachial] 99 Pulse Rate [Left Brachial] 67 Respiratory Rate 18 Respiratory Rate 18 Respiratory Rate 20 Respiratory Rate 16 Respiratory Rate 16 Respiratory Rate 20 Blood Pressure [Left Arm] 122/69 Blood Pressure [Left Arm] 126/65 O2 Sat by Pulse Oximetry 97 O2 Sat by Pulse Oximetry 95 Assessment/Plan (1) Acute on chronic systolic heart failure: Narrative Support Text: Close monitoring, echo tomorrow, continue broad-spectrum antibiotics. Monitor for culture results. Tentatively plan for surgery tomorrow afternoon, may need to delay or transfer to a facility with advanced cardiac abilities given history of CAD. Starting Jardiance and spironolactone due to systolic CHF and hypertension. Consider Entresto. Status: Acute (2) Sepsis: Qualifiers: Sepsis acute organ dysfunction status: without acute organ dysfunction Sepsis type: sepsis due to unspecified organism Qualified Code(s): A41.9 - Sepsis, unspecified organism Status: Acute (3) Dehiscence of wound: Status: Acute (4) Dehiscence of amputation stump of right lower extremity: Status: Acute (5) Gangrene due to arterial insufficiency: Status: Acute (6) Osteomyelitis of foot, right, acute: Status: Acute (7) Essential (primary) hypertension: Status: Acute (8) Anemia, chronic disease: Status: Acute
[2025-06-05] MEDS: K-DUR TAB 20 MEQ PO SCH (14:31)
[2025-06-05] MEDS: NORCO 5/325 MG TAB PO PRN (21:25)
[2025-06-06 06:01] LABS: MEAN PLATELET VOLUME 8.5 fL (7.4-11.0); RED CELL DISTRIBUTION WIDTH 16.8 % (11.6-16.5)
[2025-06-06 06:02] LABS: COR CA(FOR HYPOALB) 9.6 mg/dL (8.5-10.1); COR NA(FOR HYPERGLY) 136 mmol/L (136-145); CREATININE 0.65 mg/dL (0.70-1.30); eGFR NON BLACK RACES > 60 (>60)
[2025-06-06] MEDS ORDERED: CONSULT PHARMACY - POTASSIUM & MAGNESIUM XX SCH (07:00)
[2025-06-06 08:47] LABS: CREATININE 0.69 mg/dL (0.70-1.30)
[2025-06-06] MEDS: K-DUR TAB 20 MEQ PO SCH (09:09)
[2025-06-06] MEDS: MAG-OX TAB PO SCH (09:10)
--- NOTE | 2025-06-06 10:50 | NOTE.SOAP ---
Soap Note Note for Day of Date of Exam: 06/06/25 Subjective Data Subjective Data: Surgery evaluated patient yesterday and advised holding off on amputations. They think it is more of heart failure exacerbation. Echo obtained this morning with initial concerns for EF between 20-25%, TR and MR, and elevated pulmonary pressures. Also with some diastolic dysfunction and atrial dilation. Patient reports that he does feel better today than yesterday. He is breathing easier with less pain in his RLE. 1 wound culture with GNR and the other with coagulation negative staph. Both blood culture still pending. Objective Data Objective Data: Chronically ill-appearing male in no acute distress. Sitting on the edge of his bed, hearing grossly intact, NCAT. Heart regular rate and rhythm with no murmur appreciated. Lungs diminished but clear with strong speech. Belly is protuberant but soft with bowel sounds present. No streaking of his lower extremity with improved edema and color. Not as cool to touch as it was yesterday. Mood and affect are appropriate. Assessment Assessment: Acute on chronic systolic heart failure exacerbation Anemia of chronic disease Sepsis due to right lower extremity infection Diabetes with peripheral neuropathy and peripheral angiopathy Plan Plan: Continue antibiotics, monitor cultures, monitor labs. Await formal echo report while continuing diuresis. Patient will need home health services at discharge whether he surgery or not. Also needs to have follow-up with cardiology.
[2025-06-06] MEDS: LOVENOX INJ 40 MG SYR SC SCH (11:04)
--- NOTE | 2025-06-06 11:32 | DR.CONSULT ---
CONSULT Consultation for Day of: Date: 06/05/25 Chief Complaint Chief Complaint: Patient with infection of open right transmetatarsal amputation stump and shortness of breath consistent with congestive heart failure, see history and physical Dr. Sierra Allergies Allergies Allergy/AdvReac Type Severity Reaction Status Date / Time pregabalin (From Lyrica) AdvReac Severe Verified 06/04/25 14:41 gabapentin AdvReac Intermediate Verified 06/04/25 14:41 History of Present Illness History of Present Illness: Patient is a 69-year-old gentleman with significant complex history of coronary artery disease, congestive heart failure and peripheral vascular disease. He has had a femoral-femoral bypass and a left femoral-popliteal bypass done by other surgeons in the past. He has had revision of the left side and ultimately required left below-knee amputation on which he fell and burst open and ultimately required revision to left above-knee amputation. He has had multiple arterial procedures of the right leg and has had transmetatarsal amputation and presented recently with an infection with maggot infestation and was treated and discharged home. He presents now complaining of shortness of breath and drainage from the right transmetatarsal amputation site. White blood cell count is normal. Patient has received treatment for his heart failure and he is improved. Echocardiogram pending per Dr. Sierra. Past Medical History Past Medical History: CHF, COPD, Coronary Artery Disease and Hypertension Additional Medical History: History of right lung cancer resected thorocoscopically . No adjuvant treatment given or required. Past Surgical History Surgical History: Angioplasty/Stents, Ortho Surgery, Tonsillectomy and Other (Right foot TMA, left AKA) Family History Family Medical History: Diabetes Mellitus Social History Does patient currently use any type of tobacco product: No Type of Tobacco Use: None How many years tobacco product used: 50 Does any household member use tobacco: Yes Alcohol Use: Rarely Drug Use: Marijuana Medications Home Medications: pregabalin (From Lyrica) Adverse Reaction (Severe, Verified 06/04/25 14:41) gabapentin Adverse Reaction (Intermediate, Verified 06/04/25 14:41) CONTINUE taking the following medications aspirin 81 mg tablet 81 mg PO QDAY 06/04/25 [History] cefepime 2 gram intravenous piggyback 2 g IV Q12H 06/04/25 [History] supposed to be on Xarelto but he has not been taking Albuterol sulfate nebulizer every 6 hours as needed Aspirin 81 mg daily Plavix 75 mg daily Spironolactone 25 mg daily Review of Systems Constitutional: See HPI Eyes: No Symptoms Reported ENT: No Symptoms Reported Respiratory: See HPI and Shortness of Breath (probable exacerbation of congestive heart failure ) Cardiovascular: See HPI Gastrointestinal: No Symptoms Reported Genitourinary: No Symptoms Reported Musculoskeletal: See HPI Skin: See HPI Neurological: No Symptoms Reported Physical Exam Vital Signs: Vital Signs Temperature 97.9 F Temperature 97.7 F Pulse Rate [Left Brachial] 108 Pulse Rate [Left Brachial] 92 Pulse Rate 90 Respiratory Rate 20 Respiratory Rate 20 Respiratory Rate 18 Respiratory Rate 17 Respiratory Rate 17 Respiratory Rate 15 Respiratory Rate 21 Blood Pressure [Left Arm] 119/64 Blood Pressure [Left Arm] 119/59 O2 Sat by Pulse Oximetry 99 O2 Sat by Pulse Oximetry 100 O2 Sat by Pulse Oximetry 100 Oriented: Normal, Time and Person Eyes: Normal Ear: Normal Nose: Normal Throat: Normal Respiratory: Diminished Throughout (Feeling better after diuresis.) Cardiovascular: Normal and Other (Right foot is warm. Will obtain right lower extremity arterial Doppler studies and ankle-brachial indices ) : Normal Auscultation: Bowel Sounds: Normal Palpation: Normal Tenderness: Normal Skin: Other (Healed left above-knee amputation. Open right transmetatarsal amputation measuring 7 x 2 x 1.5 cm with exudate. No cellulitis. Right foot is warm. Will obtain lower extremity Dopplers.) Psychiatric: Normal Mood Description: Calm Affect: Normal Speech Pattern: Clear and Appropriate Plan (1) Acute on chronic systolic heart failure: Status: Acute Plan: Treated by Dr. Sierra and is improved. Echocardiogram pending (2) Sepsis: Status: Acute Qualifiers: Sepsis acute organ dysfunction status: without acute organ dysfunction Sepsis type: sepsis due to unspecified organism Qualified Code(s): A41.9 - Sepsis, unspecified organism Plan: At this point no overt evidence of sepsis. Blood cultures pending. (3) Dehiscence of wound: Status: Acute Plan: Right transmetatarsal amp site is open. Will plan treatment with Santyl and placement of wound vacuum. Will begin IV antibiotic. Started on IV vancomycin. Wound cultures and blood cultures pending (4) Dehiscence of amputation stump of right lower extremity: Status: Acute Plan: see above (5) Gangrene due to arterial insufficiency: Status: Acute Plan: see above (6) Osteomyelitis of foot, right, acute: Status: Acute Plan: see above (7) Essential (primary) hypertension: Status: Acute Plan: Home medications (8) Anemia, chronic disease: Status: Acute Plan: Will follow
--- NOTE | 2025-06-06 15:19 | VAS ---
EXAM: LOWER EXT ARTERIAL-UNILATERAL HISTORY: QUESTION OF ISCHEMIA AFTER RIGHT LEG INTERVENTION; ; BSA=2.07 BSAType=OCCIDENTAL . COMPARISON: CTA dated 04/12/2025. TECHNIQUE: Ultrasound of right lower extremity arteries was performed, including the common femoral, superficial femoral and popliteal arteries. When clinically applicable, the deep femoral, posterior tibial and/or anterior tibial artery were also evaluated. Color flow and spectral doppler imaging was utilized. Subjective analysis from palafox-scale, waveform analysis and color flow imaging was used to estimate degree of stenosis. FINDINGS: Technically difficult study due to overlying bandage. RIGHT LOWER EXTREMITY: Proximal common femoral artery has a peak systolic velocity 120 cm/sec with a monophasic wave form. Proximal superficial femoral artery peak systolic velocity 98 cm/sec with a monophasic wave form. Mid superficial femoral artery peak systolic velocity 44 cm/sec with a monophasic wave form. Distal superficial femoral artery peak systolic velocity 37 cm/sec with a monophasic wave form. Proximal popliteal artery peak systolic velocity 30 cm/sec with a monophasic wave form. Distal popliteal artery peak systolic velocity 43 cm/sec with a monophasic wave form. Proximal posterior tibial artery peak systolic velocity 13 cm/sec with a monophasic wave form. Mid posterior tibial artery peak systolic velocity 26 cm/sec with a monophasic wave form. Distal posterior tibial artery peak systolic velocity 14 cm/sec with a monophasic wave form. DPA peak systolic velocity 8 cm/sec with monophasic wave form. IMPRESSION: No focal high-grade arterial stenosis or occlusion identified. Diffuse right lower extremity monophasic waveforms, suggestive of inflow/iliac artery stenosis. THIS IS AN ELECTRONICALLY VERIFIED FINAL REPORT 06/06/2025 3:16 PM - Electronically signed by Vasyl Vilchis MD
--- NOTE | 2025-06-06 17:45 | NOTE.SOAP ---
Soap Note Note for Day of Date of Exam: 06/06/25 Subjective Data Subjective Data: Patient very stable and breathing better. No clinical evidence of sepsis. Had echocardiogram showing ejection fraction of 20 to 25% with tricuspid regurgitation and mitral valve regurgitation. 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 Objective Data Temperature: 97 F Pulse Rate: 98 Respiratory Rate: 18 Blood Pressure: 120/72 O2 Sat by Pulse Oximetry: 96 Objective Data: Patient resting comfortably. Right foot with dressing in place. See my note from yesterday Assessment Assessment: Do not think amputation will be necessary at this time of the right foot. Will place wound VAC him tomorrow. Await final culture results. Growing gram positive cocci probable Staphylococcus but no sensitivities yet Plan Plan: as above
[2025-06-07 05:51] LABS: MEAN PLATELET VOLUME 8.4 fL (7.4-11.0); RED CELL DISTRIBUTION WIDTH 17.0 % (11.6-16.5)
[2025-06-07 06:08] LABS: COR CA(FOR HYPOALB) 9.6 mg/dL (8.5-10.1); COR NA(FOR HYPERGLY) 134 mmol/L (136-145); CREATININE 0.65 mg/dL (0.70-1.30); eGFR NON BLACK RACES > 60 (>60)
[2025-06-07] MEDS ORDERED: CONSULT PHARMACY - POTASSIUM & MAGNESIUM XX SCH ×2 (08:00→23:00)
[2025-06-07] MEDS: LASIX IVP SCH (08:32)
[2025-06-07] MEDS: FARXIGA PO SCH (08:32)
[2025-06-07] MEDS: MAG-OX TAB PO SCH (08:32)
[2025-06-07] MEDS: K-DUR TAB 20 MEQ PO SCH (08:32)
--- NOTE | 2025-06-07 09:17 | EKG ---
Test Reason : increased hr Blood Pressure : */* mmHG Vent. Rate : 139 BPM Atrial Rate : * BPM P-R Int : * ms QRS Dur : 128 ms QT Int : 346 ms P-R-T Axes : * 59 183 degrees QTc Int : 526 ms Atrial fibrillation with rapid ventricular response Nonspecific intraventricular block T wave abnormality, consider inferior ischemia Abnormal ECG When compared with ECG of 04-JUN-2025 14:04, Atrial fibrillation has replaced Sinus rhythm T wave inversion less evident in Lateral leads Confirmed by Dylan Willis MD ([id number]) on 06/07/2025 9:37:27 AM Referred By: Confirmed By: Dylan Willis MD
[2025-06-07] MEDS: BACTRIM DS TAB PO SCH (10:12)
[2025-06-07] MEDS: CORDARONE TAB 200 MG PO SCH (10:39)
--- NOTE | 2025-06-07 11:06 | NOTE.SOAP ---
Soap Note Note for Day of Date of Exam: 06/07/25 Subjective Data Subjective Data: Patient very stable. Breathing much better. No fever and white blood cell count is normal at 6500. Still with significant drainage from the right open transmetatarsal amputation site. Doppler study shows low flow arterially below the knee. Foot remains warm on that side. Healed left above-knee amputation. Objective Data Temperature: 97.9 F Pulse Rate: 92 Respiratory Rate: 18 Blood Pressure: 148/71 O2 Sat by Pulse Oximetry: 98 Objective Data: Left above knee stump looks good. Patient breathing better. Noted significant reduction of ejection fraction of less than 30%. Wound of the right open transmetatarsal amputation with no evidence of cellulitis with drainage noted. Assessment Assessment: 1) is of heart failure being treated by internal medicine service 2) significant peripheral rashes the status post left above-knee amputation status post right transmetatarsal amputation with open wound. Plan Plan: Continue IV antibiotics. Placed wound vacuum of the right foot. I have discussed this with Dr. Lewis . Still at risk of below-knee amputation on this side but we will give him a chance to heal. Patient will be placed in a swing bed to receive IV antibiotics
--- NOTE | 2025-06-07 12:14 | NOTE.SOAP ---
Soap Note Note for Day of Date of Exam: 06/07/25 Subjective Data Subjective Data: No acute events overnight. Did grow out Pseudomonas with extended resistances. Only sensitive to tobramycin. Also grew out stenotrophomonas sensitive to Bactrim. Wound VAC to be placed. Patient would like to go home today, if able. After rounds, nursing called and reported A-fib with RVR. This is new for patient. Echo did show multiple issues yesterday, though. He has known coronary disease. Follows with [facility] cardiology. Objective Data Objective Data: Well-developed nourished, chronically ill-appearing elderly male. Heart regular rate and rhythm on my exam with no murmur appreciated. Lungs with crackles at the bases but strong speech and clear otherwise. Belly soft with bowel sounds present. Right lower extremity slightly more edematous than yesterday with no weeping. Assessment Assessment: Atrial fibrillation with RVR acute on chronic systolic CHF exacerbation Mitral and tricuspid regurgitation Pseudomonas foot wound Stenotrophomonas foot wound Plan Plan: Loading dose of amiodarone, telemetry, consider cardiology consult tomorrow. Switch to tobramycin IV, extended dosing. Daily weights. Continue diuresis. Likely will discharge to swing bed status in the next 24-48 hours based on rhythm.
[2025-06-07] MEDS: NEXTERONE IV 150 MG PREMIX* 150 MG/100 ML BAG IV ONE ×2 (14:07→14:09)
[2025-06-07] MEDS ORDERED: NEXTERONE IV 360 MG PREMIX* 360 MG/200 ML BAG IV ONE (14:14)
[2025-06-07] MEDS: NEXTERONE IV 360 MG PREMIX* 360 MG/200 ML BAG IV ONE (14:29)
[2025-06-07] MEDS: DRUG FILTER EXTENSION SET ONE (14:32)
[2025-06-07] MEDS: NEXTERONE IV 360 MG PREMIX* 360 MG/200 ML BAG IV PRN (20:43)
[2025-06-07] MEDS: SANTYL EXT SCH (22:31)
[2025-06-07] MEDS: PHARMACY COMMENT IV ONE (22:41)
[2025-06-08] MEDS: K-DUR TAB 20 MEQ PO SCH ×2 (00:55→05:35)
[2025-06-08] MEDS: MAG-OX TAB PO SCH ×2 (00:56→05:33)
[2025-06-08 05:33] LABS: MEAN PLATELET VOLUME 8.3 fL (7.4-11.0); RED CELL DISTRIBUTION WIDTH 17.2 % (11.6-16.5)
[2025-06-08 05:42] LABS: COR CA(FOR HYPOALB) 9.8 mg/dL (8.5-10.1); COR NA(FOR HYPERGLY) 132 mmol/L (136-145); CREATININE 0.88 mg/dL (0.70-1.30); eGFR NON BLACK RACES > 60 (>60)
[2025-06-08] MEDS: NS 250 ML IV 250 ML IV ONE (09:00)
[2025-06-08] MEDS: LOPRESSOR TAB 50 MG PO SCH (09:33)
[2025-06-08] MEDS: TOBRAMYCIN SULFATE 400 MG in NS 100 ML IV 100 ML IV SCH (09:37)
--- NOTE | 2025-06-08 13:51 | NOTE.SOAP ---
Soap Note Note for Day of Date of Exam: 06/08/25 Subjective Data Subjective Data: Afib with RVR yesterday. Transferred to ICU. Converted and still on PO amidoarone (started, switched to IV, back to PO). On Plavix with Eliquis to start tonight. Can not transition home due to IV abx and can not transition to SONIA/swingbed due to Afib and holiday. Pt still feels better overall, but easily tired and still swollen. Reports good UOP, but still not significant recorded output. Objective Data Objective Data: NAD. NCAT. Wearing O2 via NC. Able to sit up without assistance, clear speech, unlabored respirations. Crackles at bases with RRR and faint murmur. Assessment Assessment: New onset Afib w/ RVR, now NSR Acute on chronic systolic CHF, stable Anemia of chronic disease Rt TMA wound Plan Plan: Per surgery, continue wound vac. IV tobramycin with PO Bactrim DS. Increase Lasix to 20mg IV TID and add metolazone 5mg PO daily. Start Eliquis 5mg BID tonight. Stop valsartan today and start Entresto BID. Needs cardiac f/u once discharged. CXR in AM. SONIA vs swingbed after holiday
[2025-06-08] MEDS ORDERED: ELIQUIS PO SCH (14:00)
[2025-06-08] MEDS: ELIQUIS PO SCH (14:28)
[2025-06-08] MEDS: ZAROXOLYN PO SCH (14:28)
[2025-06-08] MEDS: LASIX IVP SCH (14:28)
[2025-06-08] MEDS: ENTRESTO 24/26 MG TABLET PO SCH (14:28)
[2025-06-08] MEDS ORDERED: PHARMACY COMMENT IV ONE (21:00)
--- NOTE | 2025-06-08 22:25 | NOTE.SOAP ---
Soap Note Note for Day of Date of Exam: 06/08/25 Subjective Data Subjective Data: Wound VAC in place right foot wound yesterday and Santyl being applied to the eschar to the right heel. Patient had onset atrial fibrillation transferred to the unit treated with amiodarone now converted to sinus rhythm. Objective Data Temperature: 98.0 F Pulse Rate: 66 Blood Pressure: 115/55 O2 Sat by Pulse Oximetry: 93 Objective Data: Wound VAC and will output with excellent suction and no air leak. Right foot is warm. Wound covered. Assessment Assessment: 1) peripheral vas disease status post left above-knee amputation. Status post right transmetatarsal amputation with wound to the right heel Plan Plan: Continue IV antibiotics. Continue wound vacuum and Santyl. Continue amiodarone for atrial fibrillation
[2025-06-09 05:25] LABS: MEAN PLATELET VOLUME 8.5 fL (7.4-11.0); RED CELL DISTRIBUTION WIDTH 16.8 % (11.6-16.5)
[2025-06-09 05:37] LABS: COR CA(FOR HYPOALB) 9.9 mg/dL (8.5-10.1); COR NA(FOR HYPERGLY) 132 mmol/L (136-145); CREATININE 0.99 mg/dL (0.70-1.30); eGFR NON BLACK RACES > 60 (>60)
[2025-06-09] MEDS: COLACE CAP 100 MG PO PRN (06:03)
--- NOTE | 2025-06-09 08:28 | RAD ---
EXAM: CHEST, 1 VIEW HISTORY: CHF EXACERBATION, AFIB ; CAD, HTN, COPD, CHF, PVD SX: ANGIO/STENTS, ORTHO, TONSILLECTOMY COMPARISON: 06/04/2025 FINDINGS: br unchanged. Scattered bilateral airspace opacities. Likely skin fold overlying the right chest. No pneumothorax or effusion. No acute osseous abnormality. IMPRESSION: Scattered bilateral opacities which may be due to edema or pneumonia. Recommend follow-up to resolution. THIS IS AN ELECTRONICALLY VERIFIED FINAL REPORT 06/09/2025 8:25 AM - Electronically signed by Andre Almendarez MD
--- NOTE | 2025-06-09 09:42 | PCM.PROG ---
Progress Note Progress Note for Day of Date of Exam: 06/09/25 Subjective Subjective: Patient sitting up in bed this morning. No acute events overnight. He reports that lower extremity swelling has significantly improved. He does complain of having to urinate so frequently throughout the night that he was not able to sleep well. Labs/imaging: WBC 7.9, hemoglobin 10.6, platelets 273, sodium 132, potassium 3.9, creatinine 0.99, glucose 206. General surgery is following. Continue wound vac. IV tobramycin with PO Bactrim DS. Will change IV lasix to 30mg BID and continue metolazone 5mg PO daily. Continue Eliquis 5mg BID and Entresto BID. Needs cardiac f/u once discharged. [facility] vs swingbed after holiday. Otherwise continue with current treatment plan. Continue closely monitor and follow-up labs/imaging. Time spent for clinical assessment, reviewing labs/imaging, physical exam, decision making and documentation greater than 45 mins. Past Medical Family Social History Allergies: Allergies pregabalin (From Lyrica) Adverse Reaction (Severe, Verified 06/04/25 14:41) gabapentin Adverse Reaction (Intermediate, Verified 06/04/25 14:41) Review of Systems ROS changes noted: see HPI Vital Signs and I&O's Vital Signs: Vital Signs Temperature 98.0 F Temperature 97.8 F Pulse Rate 63 Pulse Rate 66 Pulse Rate 63 Pulse Rate 61 Pulse Rate 66 Pulse Rate 66 Pulse Rate 65 Pulse Rate 66 Respiratory Rate 16 Respiratory Rate 19 Respiratory Rate 23 Respiratory Rate 12 Respiratory Rate 23 Respiratory Rate 14 Respiratory Rate 15 Respiratory Rate 21 Respiratory Rate 19 Respiratory Rate 20 Blood Pressure 105/53 Blood Pressure 106/56 Blood Pressure 115/68 Blood Pressure 121/62 Blood Pressure 119/65 Blood Pressure 115/66 Blood Pressure 109/58 O2 Sat by Pulse Oximetry 98 O2 Sat by Pulse Oximetry 97 O2 Sat by Pulse Oximetry 100 O2 Sat by Pulse Oximetry 99 O2 Sat by Pulse Oximetry 98 O2 Sat by Pulse Oximetry 100 O2 Sat by Pulse Oximetry 96 O2 Sat by Pulse Oximetry 94 Intake and Output: Intake & Output 06/06/25 06/07/25 06/08/25 06/09/25 23:59 23:59 23:59 23:59 Intake Total 2524 / 2524 2264 / 2264 2122 / 2122 320 / 320 Output Total 1650 / 1650 2875 / 2875 4300 / 4300 800 / 800 Balance 874 / 874 -611 / -611 -2178 / -2178 -480 / -480 Physical Exam Oriented: Normal, Time and Person Eyes: Normal Ear: Normal Nose: Normal Throat: Normal Respiratory: Normal Cardiovascular: Normal : Normal Auscultation: Bowel Sounds: Normal Tenderness: Normal Skin: Other (Healed left above-knee amputation. Wound vac) Psychiatric: Normal Mood Description: Calm Affect: Normal Speech Pattern: Clear and Appropriate Laboratory and Diagnostics 06/09/25 05:10 06/09/25 05:10 Labs: 06/04/25 14:20 Foot - Right Wound Culture - Final Pseudomonas Aeruginosa Stenotrophomonas Maltophilia Alcaligenes Faecalis 06/04/25 14:20 Thigh - Left Wound Culture - Preliminary 06/04/25 14:16 Blood Blood Culture - Preliminary 06/04/25 14:01 Blood Blood Culture - Preliminary Laboratory WBC 7.9 X10^3/uL (3.6-10.0) 06/09/25 05:10 RBC 3.37 X10^6/uL (4.7-6.0) L 06/09/25 05:10 Hgb 10.6 g/dL (13.5-18.0) L 06/09/25 05:10 Hct 30.9 % (42.0-54.0) L 06/09/25 05:10 MCV 91.5 fL (80.0-100.0) 06/09/25 05:10 MCH 31.4 pg (27.0-34.0) 06/09/25 05:10 MCHC 34.3 g/dL (33.0-35.0) 06/09/25 05:10 RDW 16.8 % (11.6-16.5) H 06/09/25 05:10 Plt Count 273 X10^3/uL (150.0-450.0) 06/09/25 05:10 MPV 8.5 fL (7.4-11.0) 06/09/25 05:10 Neut % (Auto) 70.6 % (42.0-75.0) 06/09/25 05:10 Lymph % (Auto) 17.4 % (21.0-51.0) L 06/09/25 05:10 [place] % (Auto) 9.8 % (0.0-13.0) 06/09/25 05:10 Eos % (Auto) 1.2 % (0.9-2.9) 06/09/25 05:10 Baso % (Auto) 1.0 % (0.2-1.0) 06/09/25 05:10 Neut # (Auto) 5.6 x10^3/uL (2.2-4.8) H 06/09/25 05:10 Lymph # (Auto) 1.4 X10^3/uL (1.3-2.9) 06/09/25 05:10 [place] # (Auto) 0.8 x10^3/uL (0.3-0.8) 06/09/25 05:10 Eos # (Auto) 0.1 x10^3/uL (0.0-0.2) 06/09/25 05:10 Baso # (Auto) 0.1 X10^3/uL (0.0-0.1) 06/09/25 05:10 Absolute Nucleated RBC 0.2 /100WBC 06/09/25 05:10 PT 16.3 SECONDS (11.8-14.3) 06/04/25 13:47 INR Target Range - 06/04/25 13:47 INR 1.29 (0.8-1.3) 06/04/25 13:47 APTT 32.3 SECONDS (22.9-36.5) 06/04/25 13:47 PTT Comment - 06/04/25 13:47 Sodium 129 mmol/L (136-145) L 06/09/25 05:10 Corrected Sodium 132 mmol/L (136-145) L 06/09/25 05:10 Potassium 3.9 mmol/L (3.5-5.1) 06/09/25 05:10 Chloride 93 mmol/L (98-107) L 06/09/25 05:10 Carbon Dioxide 27.8 mmol/L (21-32) 06/09/25 05:10 BUN 14 mg/dL (7-18) 06/09/25 05:10 Creatinine 0.99 mg/dL (0.70-1.30) 06/09/25 05:10 Est GFR (MDRD) Af Amer > 60 (>60) 06/09/25 05:10 Est GFR (MDRD) Non-Af > 60 (>60) 06/09/25 05:10 Glucose 206 mg/dL (65-99) H 06/09/25 05:10 Lactic Acid 1.7 mmol/L (0.4-2.0) 06/04/25 14:01 Calcium 8.9 mg/dL (8.5-10.1) 06/09/25 05:10 Corrected Calcium 9.9 mg/dL (8.5-10.1) 06/09/25 05:10 Magnesium 2.0 mg/dL (2.0-2.9) 06/08/25 05:18 Total Bilirubin 0.60 mg/dL (0.2-1.0) 06/09/25 05:10 AST 58 Units/L (15-37) H 06/09/25 05:10 ALT 91 Units/L (12-78) H 06/09/25 05:10 Alkaline Phosphatase 116 Units/L (46-116) 06/09/25 05:10 Creatine Kinase 21 Units/L (39-308) L 06/04/25 13:47 Troponin I High Sens 26.7 ng/L (4.0-60.0) 06/04/25 13:47 B-Natriuretic Peptide 2560 pg/mL (0-79) H 06/04/25 13:47 Total Protein 7.6 g/dL (6.4-8.2) 06/09/25 05:10 Albumin 2.8 g/dL (3.4-5.0) L 06/09/25 05:10 Globulin 4.8 g/dL (2.5-4.5) H 06/09/25 05:10 Albumin/Globulin Ratio 0.6 Ratio (1.1-2.1) L 06/09/25 05:10 Random Tobramycin 2.9 ug/mL 06/07/25 22:33 Vancomycin Trough 10.5 ug/mL (15-20) L 06/06/25 08:16 Plan (1) Acute on chronic systolic heart failure: Status: Acute (2) Sepsis: Status: Ruled-out Qualifiers: Sepsis acute organ dysfunction status: without acute organ dysfunction Sepsis type: sepsis due to unspecified organism Qualified Code(s): A41.9 - Sepsis, unspecified organism (3) Dehiscence of wound: Status: Acute (4) Dehiscence of amputation stump of right lower extremity: Status: Acute (5) Gangrene due to arterial insufficiency: Status: Ruled-out (6) Osteomyelitis of foot, right, acute: Status: Ruled-out (7) Essential (primary) hypertension: Status: Acute (8) Anemia, chronic disease: Status: Acute (9) New onset atrial fibrillation: Status: Acute (10) Atrial fibrillation with RVR: Status: Acute (11) Pseudomonas aeruginosa infection: Status: Acute
--- NOTE | 2025-06-09 16:53 | NOTE.SOAP ---
Soap Note Note for Day of Date of Exam: 06/09/25 Subjective Data Subjective Data: Patient atrial fibrillation is resolved. He is doing well. Wound VAC in without air leak and the wound actually looks good. Right foot is warm. Santyl being applied to the heel wound of the right foot. Patient is status post left above-knee amputation Objective Data Temperature: 98.0 F Pulse Rate: 63 Respiratory Rate: 20 Blood Pressure: 117/61 O2 Sat by Pulse Oximetry: 97 Objective Data: Patient and sinus rhythm. Wound VAC in place with no airleak. No cellulitis obvious of the right foot. Right foot warm Assessment Assessment: 1) atrial fibrillation resolved and stable. 2) patient with open wound to the right transmetatarsal amputation with wound vacuum in place. Applying Santyl to the right heel eschar measuring approximately 1 inch in diam Plan Plan: as above
[2025-06-09] MEDS: PHARMACY COMMENT IV NR (21:00)
[2025-06-09] MEDS: LASIX IVP SCH (21:35)
[2025-06-09] MEDS: ULTRAM PO PRN (21:36)
[2025-06-09 21:44] LABS: CREATININE 1.28 mg/dL (0.70-1.30)
[2025-06-10 06:20] LABS: MEAN PLATELET VOLUME 8.4 fL (7.4-11.0); RED CELL DISTRIBUTION WIDTH 17.2 % (11.6-16.5)
[2025-06-10 06:33] LABS: COR CA(FOR HYPOALB) 10.1 mg/dL (8.5-10.1); COR NA(FOR HYPERGLY) 133 mmol/L (136-145); CREATININE 1.20 mg/dL (0.70-1.30); eGFR NON BLACK RACES > 60 (>60)
[2025-06-10] MEDS ORDERED: CONSULT PHARMACY - POTASSIUM & MAGNESIUM XX SCH (08:00)
[2025-06-10] MEDS: K-DUR TAB 20 MEQ PO SCH (09:11)
[2025-06-10] MEDS: MILK OF MAGNESIA PO PRN (09:43)
--- NOTE | 2025-06-10 11:28 | NOTE.SOAP ---
Soap Note Note for Day of Date of Exam: 06/10/25 Subjective Data Subjective Data: Continues to improve. No further shortness of breath. Transferred to the floor. Wound vacuum with no air leak. Santyl being applied to the right heel wound. Objective Data Temperature: 97.6 F Pulse Rate: 62 Respiratory Rate: 18 Blood Pressure: 115/53 O2 Sat by Pulse Oximetry: 92 Objective Data: Lungs clear. Wound vacuum intact right anterior foot wound. Santyl being applied to the right heel wound Assessment Assessment: Atrial fibrillation is improved. Heart failure is being treated medically. 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 Wound of the right transmetatarsal amputation treated with wound vacuum and the heel eschar treated with Santyl. Continues on IV antibiotics Plan Plan: Plan discharge to either [facility] facility or home health with IV antibiotics and wound vacuum next week.
--- NOTE | 2025-06-10 11:48 | PCM.PROG ---
Progress Note Progress Note for Day of Date of Exam: 06/10/25 Subjective Subjective: Patient seen at bedside, no acute events overnight. He is currently admitted for right foot open wound, has wound vac in place. He remains on IV antibiotics. Surgery following. Patient is waiting on rehab placement. Labs/imaging: -WBC 7.9 hemoglobin 11 platelets 305 sodium 133 potassium 3.7 creatinine 1.20 glucose 178 Plan: Continue current treatment. General surgery is following. Continue wound vac. IV tobramycin with PO Bactrim DS. Continue pain control. Continue lasix and metolazone 5mg PO daily. Continue Eliquis 5mg BID and Entresto BID. Needs cardiac f/u once discharged. Waiting rehab placement or swing bed. Continue closely monitor and follow-up labs/imaging. Past Medical Family Social History Allergies: Allergies pregabalin (From Lyrica) Adverse Reaction (Severe, Verified 06/04/25 14:41) gabapentin Adverse Reaction (Intermediate, Verified 06/04/25 14:41) Vital Signs and I&O's Vital Signs: Vital Signs Temperature 97.6 F Temperature 97.6 F Temperature 97.5 F Pulse Rate 62 Pulse Rate 85 Pulse Rate 62 Pulse Rate 58 Respiratory Rate 18 Respiratory Rate 18 Respiratory Rate 17 Respiratory Rate 18 Respiratory Rate 20 Blood Pressure 115/53 Blood Pressure 115/53 Blood Pressure 97/57 O2 Sat by Pulse Oximetry 92 O2 Sat by Pulse Oximetry 96 O2 Sat by Pulse Oximetry 92 O2 Sat by Pulse Oximetry 95 Intake and Output: Intake & Output 06/07/25 06/08/25 06/09/25 06/10/25 23:59 23:59 23:59 23:59 Intake Total 2264 / 2264 2122 / 2122 2866 / 2866 0 / 0 Output Total 2875 / 2875 4300 / 4300 4250 / 4250 0 / 0 Balance -611 / -611 -2178 / -2178 -1384 / -1384 0 / 0 Physical Exam Oriented: Normal, Time and Person Eyes: Normal Ear: Normal Nose: Normal Throat: Normal Respiratory: Normal Cardiovascular: Normal Auscultation: Bowel Sounds: Normal Palpation: Normal Tenderness: Normal Skin: Other (Healed left above-knee amputation. Wound vac) Psychiatric: Normal Mood Description: Calm Affect: Normal Speech Pattern: Clear and Appropriate Laboratory and Diagnostics 06/10/25 05:51 06/10/25 05:51 Labs: 06/04/25 14:16 Blood Blood Culture - Final 06/04/25 14:01 Blood Blood Culture - Final 06/04/25 14:20 Foot - Right Wound Culture - Final Pseudomonas Aeruginosa Stenotrophomonas Maltophilia Alcaligenes Faecalis 06/04/25 14:20 Thigh - Left Wound Culture - Preliminary Laboratory WBC 7.9 X10^3/uL (3.6-10.0) 06/10/25 05:51 RBC 3.56 X10^6/uL (4.7-6.0) L 06/10/25 05:51 Hgb 11.0 g/dL (13.5-18.0) L 06/10/25 05:51 Hct 32.5 % (42.0-54.0) L 06/10/25 05:51 MCV 91.3 fL (80.0-100.0) 06/10/25 05:51 MCH 30.9 pg (27.0-34.0) 06/10/25 05:51 MCHC 33.8 g/dL (33.0-35.0) 06/10/25 05:51 RDW 17.2 % (11.6-16.5) H 06/10/25 05:51 Plt Count 305 X10^3/uL (150.0-450.0) 06/10/25 05:51 MPV 8.4 fL (7.4-11.0) 06/10/25 05:51 Neut % (Auto) 74.5 % (42.0-75.0) 06/10/25 05:51 Lymph % (Auto) 11.1 % (21.0-51.0) L 06/10/25 05:51 [place] % (Auto) 9.1 % (0.0-13.0) 06/10/25 05:51 Eos % (Auto) 1.2 % (0.9-2.9) 06/10/25 05:51 Baso % (Auto) 4.1 % (0.2-1.0) H 06/10/25 05:51 Neut # (Auto) 5.9 x10^3/uL (2.2-4.8) H 06/10/25 05:51 Lymph # (Auto) 0.9 X10^3/uL (1.3-2.9) L 06/10/25 05:51 [place] # (Auto) 0.7 x10^3/uL (0.3-0.8) 06/10/25 05:51 Eos # (Auto) 0.1 x10^3/uL (0.0-0.2) 06/10/25 05:51 Baso # (Auto) 0.3 X10^3/uL (0.0-0.1) H 06/10/25 05:51 Absolute Nucleated RBC 0.2 /100WBC 06/10/25 05:51 PT 16.3 SECONDS (11.8-14.3) 06/04/25 13:47 INR Target Range - 06/04/25 13:47 INR 1.29 (0.8-1.3) 06/04/25 13:47 APTT 32.3 SECONDS (22.9-36.5) 06/04/25 13:47 PTT Comment - 06/04/25 13:47 Sodium 131 mmol/L (136-145) L 06/10/25 05:51 Corrected Sodium 133 mmol/L (136-145) L 06/10/25 05:51 Potassium 3.7 mmol/L (3.5-5.1) 06/10/25 05:51 Chloride 91 mmol/L (98-107) L 06/10/25 05:51 Carbon Dioxide 31.9 mmol/L (21-32) 06/10/25 05:51 BUN 19 mg/dL (7-18) H 06/10/25 05:51 Creatinine 1.20 mg/dL (0.70-1.30) 06/10/25 05:51 Est GFR (MDRD) Af Amer > 60 (>60) 06/10/25 05:51 Est GFR (MDRD) Non-Af > 60 (>60) 06/10/25 05:51 Glucose 178 mg/dL (65-99) H 06/10/25 05:51 Lactic Acid 1.7 mmol/L (0.4-2.0) 06/04/25 14:01 Calcium 9.1 mg/dL (8.5-10.1) 06/10/25 05:51 Corrected Calcium 10.1 mg/dL (8.5-10.1) 06/10/25 05:51 Magnesium 2.0 mg/dL (2.0-2.9) 06/08/25 05:18 Total Bilirubin 1.00 mg/dL (0.2-1.0) 06/10/25 05:51 AST 35 Units/L (15-37) 06/10/25 05:51 ALT 83 Units/L (12-78) H 06/10/25 05:51 Alkaline Phosphatase 113 Units/L (46-116) 06/10/25 05:51 Creatine Kinase 21 Units/L (39-308) L 06/04/25 13:47 Troponin I High Sens 26.7 ng/L (4.0-60.0) 06/04/25 13:47 B-Natriuretic Peptide 2560 pg/mL (0-79) H 06/04/25 13:47 Total Protein 7.6 g/dL (6.4-8.2) 06/10/25 05:51 Albumin 2.8 g/dL (3.4-5.0) L 06/10/25 05:51 Globulin 4.8 g/dL (2.5-4.5) H 06/10/25 05:51 Albumin/Globulin Ratio 0.6 Ratio (1.1-2.1) L 06/10/25 05:51 Random Tobramycin 2.1 ug/mL 06/10/25 05:51 Tobramycin Trough 5.1 ug/mL (0-2) H* 06/09/25 21:00 Vancomycin Trough 10.5 ug/mL (15-20) L 06/06/25 08:16 Plan (1) Acute on chronic systolic heart failure: Status: Acute (2) Dehiscence of wound: Status: Acute (3) Dehiscence of amputation stump of right lower extremity: Status: Acute (4) Essential (primary) hypertension: Status: Chronic (5) Anemia, chronic disease: Status: Acute (6) New onset atrial fibrillation: Status: Acute (7) Pseudomonas aeruginosa infection: Status: Acute
[2025-06-10] MEDS: TOBRAMYCIN SULFATE 320 MG in NS 100 ML IV 100 ML IV SCH (16:28)
[2025-06-11 06:41] LABS: MEAN PLATELET VOLUME 8.2 fL (7.4-11.0); RED CELL DISTRIBUTION WIDTH 16.9 % (11.6-16.5)
[2025-06-11 06:48] LABS: COR CA(FOR HYPOALB) 10.1 mg/dL (8.5-10.1); COR NA(FOR HYPERGLY) 132 mmol/L (136-145); CREATININE 1.36 mg/dL (0.70-1.30); eGFR NON BLACK RACES 55 (>60)
--- NOTE | 2025-06-11 11:28 | PCM.PROG ---
Progress Note Progress Note for Day of Date of Exam: 06/11/25 Subjective Subjective: Patient seen at bedside, no acute events overnight. He is currently admitted for right foot open wound, has wound vac in place. He remains on IV antibiotics. Surgery following. Patient is waiting on rehab placement. Labs/imaging: -WBC 7.3 hemoglobin 11.9 platelets 382 sodium 130 potassium 4.2 creatinine 1.22 glucose 97 Plan: Continue current treatment. General surgery is following. Continue wound vac. IV tobramycin with PO Bactrim DS. Continue pain control. Continue lasix and metolazone 5mg PO daily. Continue Eliquis 5mg BID and Entresto BID. Needs cardiac f/u once discharged. Waiting rehab placement or swing bed. Continue to monitor and follow-up labs/imaging. Past Medical Family Social History Allergies: Allergies pregabalin (From Lyrica) Adverse Reaction (Severe, Verified 06/04/25 14:41) gabapentin Adverse Reaction (Intermediate, Verified 06/04/25 14:41) Vital Signs and I&O's Vital Signs: Vital Signs Temperature 97.6 F Temperature 99.1 F Pulse Rate 59 Pulse Rate 57 Pulse Rate 60 Respiratory Rate 18 Respiratory Rate 17 Respiratory Rate 18 Respiratory Rate 20 Blood Pressure 122/59 Blood Pressure 130/72 O2 Sat by Pulse Oximetry 96 O2 Sat by Pulse Oximetry 95 O2 Sat by Pulse Oximetry 98 Intake and Output: Intake & Output 06/08/25 06/09/25 06/10/25 06/11/25 23:59 23:59 23:59 23:59 Intake Total 2122 / 2122 2866 / 2866 635 / 635 Output Total 4300 / 4300 4250 / 4250 1800 / 1800 850 / 850 Balance -2178 / -2178 -1384 / -1384 -1165 / -1165 -840 / -840 Physical Exam Oriented: Normal, Time and Person Eyes: Normal Ear: Normal Nose: Normal Throat: Normal Respiratory: Normal Cardiovascular: Normal : Normal Auscultation: Bowel Sounds: Normal Palpation: Normal Tenderness: Normal Skin: Other (Healed left above-knee amputation. Wound vac) Psychiatric: Normal Mood Description: Calm Affect: Normal Speech Pattern: Clear and Appropriate Laboratory and Diagnostics 06/11/25 05:50 06/11/25 05:50 Labs: 06/04/25 14:20 Thigh - Left Wound Culture - Preliminary Corynebacterium Species 06/04/25 14:16 Blood Blood Culture - Final 06/04/25 14:01 Blood Blood Culture - Final 06/04/25 14:20 Foot - Right Wound Culture - Final Pseudomonas Aeruginosa Stenotrophomonas Maltophilia Alcaligenes Faecalis Laboratory WBC 7.3 X10^3/uL (3.6-10.0) 06/11/25 05:50 RBC 3.88 X10^6/uL (4.7-6.0) L 06/11/25 05:50 Hgb 11.9 g/dL (13.5-18.0) L 06/11/25 05:50 Hct 35.1 % (42.0-54.0) L 06/11/25 05:50 MCV 90.4 fL (80.0-100.0) 06/11/25 05:50 MCH 30.7 pg (27.0-34.0) 06/11/25 05:50 MCHC 34.0 g/dL (33.0-35.0) 06/11/25 05:50 RDW 16.9 % (11.6-16.5) H 06/11/25 05:50 Plt Count 382 X10^3/uL (150.0-450.0) 06/11/25 05:50 MPV 8.2 fL (7.4-11.0) 06/11/25 05:50 Neut % (Auto) 66.9 % (42.0-75.0) 06/11/25 05:50 Lymph % (Auto) 18.1 % (21.0-51.0) L 06/11/25 05:50 [place] % (Auto) 8.9 % (0.0-13.0) 06/11/25 05:50 Eos % (Auto) 2.1 % (0.9-2.9) 06/11/25 05:50 Baso % (Auto) 4.0 % (0.2-1.0) H 06/11/25 05:50 Neut # (Auto) 4.9 x10^3/uL (2.2-4.8) H 06/11/25 05:50 Lymph # (Auto) 1.3 X10^3/uL (1.3-2.9) 06/11/25 05:50 [place] # (Auto) 0.6 x10^3/uL (0.3-0.8) 06/11/25 05:50 Eos # (Auto) 0.2 x10^3/uL (0.0-0.2) 06/11/25 05:50 Baso # (Auto) 0.3 X10^3/uL (0.0-0.1) H 06/11/25 05:50 Absolute Nucleated RBC 0.6 /100WBC 06/11/25 05:50 PT 16.3 SECONDS (11.8-14.3) 06/04/25 13:47 INR Target Range - 06/04/25 13:47 INR 1.29 (0.8-1.3) 06/04/25 13:47 APTT 32.3 SECONDS (22.9-36.5) 06/04/25 13:47 PTT Comment - 06/04/25 13:47 Sodium 130 mmol/L (136-145) L 06/11/25 05:50 Corrected Sodium 132 mmol/L (136-145) L 06/11/25 05:50 Potassium 4.2 mmol/L (3.5-5.1) 06/11/25 05:50 Chloride 90 mmol/L (98-107) L 06/11/25 05:50 Carbon Dioxide 32.0 mmol/L (21-32) 06/11/25 05:50 BUN 22 mg/dL (7-18) H 06/11/25 05:50 Creatinine 1.36 mg/dL (0.70-1.30) H 06/11/25 05:50 Est GFR (MDRD) Af Amer > 60 (>60) 06/11/25 05:50 Est GFR (MDRD) Non-Af 55 (>60) L 06/11/25 05:50 Glucose 182 mg/dL (65-99) H 06/11/25 05:50 Lactic Acid 1.7 mmol/L (0.4-2.0) 06/04/25 14:01 Calcium 9.4 mg/dL (8.5-10.1) 06/11/25 05:50 Corrected Calcium 10.1 mg/dL (8.5-10.1) 06/11/25 05:50 Magnesium 2.1 mg/dL (2.0-2.9) 06/11/25 05:50 Total Bilirubin 0.80 mg/dL (0.2-1.0) 06/11/25 05:50 AST 31 Units/L (15-37) 06/11/25 05:50 ALT 74 Units/L (12-78) 06/11/25 05:50 Alkaline Phosphatase 118 Units/L (46-116) H 06/11/25 05:50 Creatine Kinase 21 Units/L (39-308) L 06/04/25 13:47 Troponin I High Sens 26.7 ng/L (4.0-60.0) 06/04/25 13:47 B-Natriuretic Peptide 2560 pg/mL (0-79) H 06/04/25 13:47 Total Protein 7.9 g/dL (6.4-8.2) 06/11/25 05:50 Albumin 3.1 g/dL (3.4-5.0) L 06/11/25 05:50 Globulin 4.8 g/dL (2.5-4.5) H 06/11/25 05:50 Albumin/Globulin Ratio 0.6 Ratio (1.1-2.1) L 06/11/25 05:50 Random Tobramycin 3.0 ug/mL 06/11/25 05:50 Tobramycin Trough 5.1 ug/mL (0-2) H* 06/09/25 21:00 Vancomycin Trough 10.5 ug/mL (15-20) L 06/06/25 08:16 Plan (1) Acute on chronic systolic heart failure: Status: Acute (2) Dehiscence of wound: Status: Acute (3) Dehiscence of amputation stump of right lower extremity: Status: Acute (4) Essential (primary) hypertension: Status: Chronic (5) Anemia, chronic disease: Status: Acute (6) New onset atrial fibrillation: Status: Acute (7) Pseudomonas aeruginosa infection: Status: Acute
[2025-06-11] MEDS: FLONASE NASAL SPRAY ENOSTRIL SCH (12:18)
--- NOTE | 2025-06-11 13:08 | NOTE.SOAP ---
Soap Note Note for Day of Date of Exam: 06/11/25 Subjective Data Subjective Data: Patient continues to do well. Atrial fibrillation resolved. Wound VAC in with good seal on the right foot with no fever. On IV antibiotics. Planning placement next week. Objective Data Temperature: 98.4 F Pulse Rate: 54 Respiratory Rate: 17 Blood Pressure: 105/49 O2 Sat by Pulse Oximetry: 97 Objective Data: Patient resting comfortably, wound VAC in with no air leak. Assessment Assessment: Severe peripheral vascular disease status post left above-knee amputation. Patient with open right transmitral amputation trying to save that. 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
[2025-06-12 06:22] LABS: MEAN PLATELET VOLUME 8.3 fL (7.4-11.0); RED CELL DISTRIBUTION WIDTH 17.0 % (11.6-16.5)
[2025-06-12 06:37] LABS: COR CA(FOR HYPOALB) 10.1 mg/dL (8.5-10.1); COR NA(FOR HYPERGLY) 131.0 mmol/L (136-145); CREATININE 1.66 mg/dL (0.70-1.30); eGFR NON BLACK RACES 44.0 (>60)
--- NOTE | 2025-06-12 12:11 | PCM.PROG ---
Progress Note Progress Note for Day of Date of Exam: 06/12/25 Subjective Subjective: Patient seen at bedside, no acute events overnight. He is currently admitted for right foot open wound, has wound vac in place. He remains on IV antibiotics. Surgery following. Patient is waiting on rehab placement. His renal function is slightly worse today. HR has been staying in the low 50s. He has been on metoprolol tartrate 50 mg BID. Labs/imaging: -WBC 7.8 hemoglobin 11.7 platelets 369 sodium 131 potassium 4.0 creatinine 1.66 glucose 174 Plan: Change lasix to daily, hold metolazone. Monitor renal function. Change metoprolol tartate to 25 mg BID. Monitor HR. General surgery is following. Continue wound vac. IV tobramycin with PO Bactrim DS. Continue pain control. Continue Eliquis 5mg BID and Entresto BID. Needs cardiac f/u once discharged. Waiting rehab placement or swing bed. Continue to monitor and follow-up labs/imaging. Past Medical Family Social History Allergies: Allergies pregabalin (From Lyrica) Adverse Reaction (Severe, Verified 06/04/25 14:41) gabapentin Adverse Reaction (Intermediate, Verified 06/04/25 14:41) Vital Signs and I&O's Vital Signs: Vital Signs Temperature 98.1 F Pulse Rate 54 Respiratory Rate 18 Respiratory Rate 18 Respiratory Rate 17 Blood Pressure 111/55 O2 Sat by Pulse Oximetry 99 Intake and Output: Intake & Output 06/09/25 06/10/25 06/11/25 06/12/25 23:59 23:59 23:59 23:59 Intake Total 2866 / 2866 635 / 635 690 / 690 458 / 458 Output Total 4250 / 4250 1800 / 1800 2550 / 2550 750 / 750 Balance -1384 / -1384 -1165 / -1165 -1860 / -1860 -292 / -292 Physical Exam Oriented: Normal, Time and Person Eyes: Normal Ear: Normal Nose: Normal Throat: Normal Respiratory: Normal Cardiovascular: Normal : Normal Auscultation: Bowel Sounds: Normal Tenderness: Normal Skin: Other (Healed left above-knee amputation. Wound vac) Psychiatric: Normal Mood Description: Calm Affect: Normal Speech Pattern: Clear and Appropriate Laboratory and Diagnostics 06/12/25 05:41 06/12/25 05:41 Labs: 06/04/25 14:20 Thigh - Left Wound Culture - Preliminary Corynebacterium Species 06/04/25 14:16 Blood Blood Culture - Final 06/04/25 14:01 Blood Blood Culture - Final 06/04/25 14:20 Foot - Right Wound Culture - Final Pseudomonas Aeruginosa Stenotrophomonas Maltophilia Alcaligenes Faec[facility] WBC 7.8 X10^3/uL (3.6-10.0) 06/12/25 05:41 RBC 3.78 X10^6/uL (4.7-6.0) L 06/12/25 05:41 Hgb 11.7 g/dL (13.5-18.0) L 06/12/25 05:41 Hct 34.3 % (42.0-54.0) L 06/12/25 05:41 MCV 90.6 fL (80.0-100.0) 06/12/25 05:41 MCH 31.0 pg (27.0-34.0) 06/12/25 05:41 MCHC 34.2 g/dL (33.0-35.0) 06/12/25 05:41 RDW 17.0 % (11.6-16.5) H 06/12/25 05:41 Plt Count 369 X10^3/uL (150.0-450.0) 06/12/25 05:41 MPV 8.3 fL (7.4-11.0) 06/12/25 05:41 Neut % (Auto) 66.1 % (42.0-75.0) 06/12/25 05:41 Lymph % (Auto) 20.7 % (21.0-51.0) L 06/12/25 05:41 [place] % (Auto) 10.1 % (0.0-13.0) 06/12/25 05:41 Eos % (Auto) 1.9 % (0.9-2.9) 06/12/25 05:41 Baso % (Auto) 1.2 % (0.2-1.0) H 06/12/25 05:41 Neut # (Auto) 5.2 x10^3/uL (2.2-4.8) H 06/12/25 05:41 Lymph # (Auto) 1.6 X10^3/uL (1.3-2.9) 06/12/25 05:41 [place] # (Auto) 0.8 x10^3/uL (0.3-0.8) 06/12/25 05:41 Eos # (Auto) 0.1 x10^3/uL (0.0-0.2) 06/12/25 05:41 Baso # (Auto) 0.1 X10^3/uL (0.0-0.1) 06/12/25 05:41 Absolute Nucleated RBC 0.2 /100WBC 06/12/25 05:41 PT 16.3 SECONDS (11.8-14.3) 06/04/25 13:47 INR Target Range - 06/04/25 13:47 INR 1.29 (0.8-1.3) 06/04/25 13:47 APTT 32.3 SECONDS (22.9-36.5) 06/04/25 13:47 PTT Comment - 06/04/25 13:47 Sodium 129 mmol/L (136-145) L 06/12/25 05:41 Corrected Sodium 131 mmol/L (136-145) L 06/12/25 05:41 Potassium 4.0 mmol/L (3.5-5.1) 06/12/25 05:41 Chloride 90 mmol/L (98-107) L 06/12/25 05:41 Carbon Dioxide 32.5 mmol/L (21-32) H 06/12/25 05:41 BUN 27 mg/dL (7-18) H 06/12/25 05:41 Creatinine 1.66 mg/dL (0.70-1.30) H 06/12/25 05:41 Est GFR (MDRD) Af Amer 53 (>60) L 06/12/25 05:41 Est GFR (MDRD) Non-Af 44 (>60) L 06/12/25 05:41 Glucose 174 mg/dL (65-99) H 06/12/25 05:41 Lactic Acid 1.7 mmol/L (0.4-2.0) 06/04/25 14:01 Calcium 9.3 mg/dL (8.5-10.1) 06/12/25 05:41 Corrected Calcium 10.1 mg/dL (8.5-10.1) 06/12/25 05:41 Magnesium 2.1 mg/dL (2.0-2.9) 06/11/25 05:50 Total Bilirubin 0.70 mg/dL (0.2-1.0) 06/12/25 05:41 AST 22 Units/L (15-37) 06/12/25 05:41 ALT 59 Units/L (12-78) 06/12/25 05:41 Alkaline Phosphatase 114 Units/L (46-116) 06/12/25 05:41 Creatine Kinase 21 Units/L (39-308) L 06/04/25 13:47 Troponin I High Sens 26.7 ng/L (4.0-60.0) 06/04/25 13:47 B-Natriuretic Peptide 2560 pg/mL (0-79) H 06/04/25 13:47 Total Protein 7.7 g/dL (6.4-8.2) 06/12/25 05:41 Albumin 3.0 g/dL (3.4-5.0) L 06/12/25 05:41 Globulin 4.7 g/dL (2.5-4.5) H 06/12/25 05:41 Albumin/Globulin Ratio 0.6 Ratio (1.1-2.1) L 06/12/25 05:41 Random Tobramycin 3.0 ug/mL 06/11/25 05:50 Tobramycin Trough 5.1 ug/mL (0-2) H* 06/09/25 21:00 Vancomycin Trough 10.5 ug/mL (15-20) L 06/06/25 08:16 Plan (1) Acute on chronic systolic heart failure: Status: Acute (2) Dehiscence of wound: Status: Acute (3) Dehiscence of amputation stump of right lower extremity: Status: Acute (4) Essential (primary) hypertension: Status: Chronic (5) Anemia, chronic disease: Status: Acute (6) New onset atrial fibrillation: Status: Acute (7) Pseudomonas aeruginosa infection: Status: Acute
[2025-06-12] MEDS: LOPRESSOR TAB 25 MG PO SCH (20:11)
--- NOTE | 2025-06-12 20:42 | NOTE.SOAP ---
Soap Note Note for Day of Date of Exam: 06/12/25 Subjective Data Subjective Data: Patient admitted with compromise of right transmetatarsal amputation site with open wound and questionable ischemia. Noted to have severe ischemia and has had ultimately left above-knee amputation which is healed. Patient also has a history of atrial fibrillation with rapid ventricular rate requiring treatment which is now resolved. Noted to have significant congestive heart failure ejection fraction of 5%. Patient is very stable not short of breath and doing well. Wound vacuum not holding suction at this time Objective Data Temperature: 97.9 F Pulse Rate: 54 Respiratory Rate: 18 Blood Pressure: 122/51 O2 Sat by Pulse Oximetry: 97 Objective Data: Right foot warm. Wound vacuum without significant suction at this time. Eschar to the right heel is stable with no cellulitis measuring approximately 2 cm in diameter Assessment Assessment: Medical ischemia both legs, status post left will be amputation. Patient with open right transmetatarsal potation chronic treated with wound vacuum. Plan Plan: Continue IV antibiotics. Continue current treatment. Plan care home facility placement
[2025-06-13 03:49] VITALS: TEMP 97.6
[2025-06-13 05:43] LABS: MEAN PLATELET VOLUME 7.8 fL (7.4-11.0); RED CELL DISTRIBUTION WIDTH 17.5 % (11.6-16.5)
[2025-06-13 06:01] LABS: COR CA(FOR HYPOALB) 9.8 mg/dL (8.5-10.1); COR NA(FOR HYPERGLY) 130.0 mmol/L (136-145); CREATININE 1.76 mg/dL (0.70-1.30); eGFR NON BLACK RACES 41.0 (>60)
[2025-06-13] MEDS: ALDACTONE TAB 25 MG PO SCH (08:45)
[2025-06-13] MEDS: LASIX IVP SCH (08:46)
[2025-06-13 10:45] VITALS: BP 112/55; PULSE 53; RESP 21; O2SAT 96
--- NOTE | 2025-06-13 14:44 | PCM.DCPLAN ---
DISCHARGE SUMMARY Admission Date Date of Admission: 06/04/25 Discharge Date Discharge Date: 06/13/25 Admission Diagnoses (1) Acute on chronic systolic heart failure: Status: Acute (2) Dehiscence of wound: Status: Acute (3) Dehiscence of amputation stump of right lower extremity: Status: Acute (4) Essential (primary) hypertension: Status: Chronic (5) Anemia, chronic disease: Status: Acute (6) New onset atrial fibrillation: Status: Acute (7) Pseudomonas aeruginosa infection: Status: Acute Discharge Medications Discharge Medications: Home Medication List aspirin 81 mg tablet 81 mg PO QDAY 06/04/25 [History] cefepime 2 gram intravenous piggyback 2 g IV Q12H 06/04/25 [History] sulfamethoxazole 800 mg-trimethoprim 160 mg tablet (Bactrim DS) 1 tab PO BID #28 tabs 06/07/25 [Rx] Prescriptions: sulfamethoxazole-trimethoprim [Bactrim DS] [facility] Course Vital Signs: Vital Signs Temperature 97.6 F Temperature 97.6 F Pulse Rate 53 Pulse Rate 52 Respiratory Rate 21 Respiratory Rate 18 Blood Pressure 112/55 Blood Pressure 125/60 O2 Sat by Pulse Oximetry 96 O2 Sat by Pulse Oximetry 98 Latest Lab Results: Laboratory Last Values WBC 8.2 X10^3/uL (3.6-10.0) 06/13/25 05:31 RBC 3.80 X10^6/uL (4.7-6.0) L 06/13/25 05:31 Hgb 11.6 g/dL (13.5-18.0) L 06/13/25 05:31 Hct 34.6 % (42.0-54.0) L 06/13/25 05:31 MCV 91.0 fL (80.0-100.0) 06/13/25 05:31 MCH 30.6 pg (27.0-34.0) 06/13/25 05:31 MCHC 33.7 g/dL (33.0-35.0) 06/13/25 05:31 RDW 17.5 % (11.6-16.5) H 06/13/25 05:31 Plt Count 338 X10^3/uL (150.0-450.0) 06/13/25 05:31 MPV 7.8 fL (7.4-11.0) 06/13/25 05:31 Neut % (Auto) 71.6 % (42.0-75.0) 06/13/25 05:31 Lymph % (Auto) 15.5 % (21.0-51.0) L 06/13/25 05:31 [place] % (Auto) 10.7 % (0.0-13.0) 06/13/25 05:31 Eos % (Auto) 0.9 % (0.9-2.9) 06/13/25 05:31 Baso % (Auto) 1.3 % (0.2-1.0) H 06/13/25 05:31 Neut # (Auto) 5.9 x10^3/uL (2.2-4.8) H 06/13/25 05:31 Lymph # (Auto) 1.3 X10^3/uL (1.3-2.9) 06/13/25 05:31 [place] # (Auto) 0.9 x10^3/uL (0.3-0.8) H 06/13/25 05:31 Eos # (Auto) 0.1 x10^3/uL (0.0-0.2) 06/13/25 05:31 Baso # (Auto) 0.1 X10^3/uL (0.0-0.1) 06/13/25 05:31 Absolute Nucleated RBC 0.1 /100WBC 06/13/25 05:31 PT 16.3 SECONDS (11.8-14.3) 06/04/25 13:47 INR Target Range - 06/04/25 13:47 INR 1.29 (0.8-1.3) 06/04/25 13:47 APTT 32.3 SECONDS (22.9-36.5) 06/04/25 13:47 PTT Comment - 06/04/25 13:47 Sodium 128 mmol/L (136-145) L 06/13/25 05:31 Corrected Sodium 130 mmol/L (136-145) L 06/13/25 05:31 Potassium 4.3 mmol/L (3.5-5.1) 06/13/25 05:31 Chloride 89 mmol/L (98-107) L 06/13/25 05:31 Carbon Dioxide 32.1 mmol/L (21-32) H 06/13/25 05:31 BUN 29 mg/dL (7-18) H 06/13/25 05:31 Creatinine 1.76 mg/dL (0.70-1.30) H 06/13/25 05:31 Est GFR (MDRD) Af Amer 49 (>60) L 06/13/25 05:31 Est GFR (MDRD) Non-Af 41 (>60) L 06/13/25 05:31 Glucose 177 mg/dL (65-99) H 06/13/25 05:31 Lactic Acid 1.7 mmol/L (0.4-2.0) 06/04/25 14:01 Calcium 9.1 mg/dL (8.5-10.1) 06/13/25 05:31 Corrected Calcium 9.8 mg/dL (8.5-10.1) 06/13/25 05:31 Magnesium 2.1 mg/dL (2.0-2.9) 06/11/25 05:50 Total Bilirubin 0.90 mg/dL (0.2-1.0) 06/13/25 05:31 AST 19 Units/L (15-37) 06/13/25 05:31 ALT 46 Units/L (12-78) 06/13/25 05:31 Alkaline Phosphatase 122 Units/L (46-116) H 06/13/25 05:31 Creatine Kinase 21 Units/L (39-308) L 06/04/25 13:47 Troponin I High Sens 26.7 ng/L (4.0-60.0) 06/04/25 13:47 B-Natriuretic Peptide 2560 pg/mL (0-79) H 06/04/25 13:47 Total Protein 7.8 g/dL (6.4-8.2) 06/13/25 05:31 Albumin 3.1 g/dL (3.4-5.0) L 06/13/25 05:31 Globulin 4.7 g/dL (2.5-4.5) H 06/13/25 05:31 Albumin/Globulin Ratio 0.7 Ratio (1.1-2.1) L 06/13/25 05:31 Random Tobramycin 4.5 ug/mL 06/12/25 17:38 Tobramycin Trough 5.1 ug/mL (0-2) H* 06/09/25 21:00 Vancomycin Trough 10.5 ug/mL (15-20) L 06/06/25 08:16 Hospital Course: Patient originally admitted with concerns for sepsis and heart failure exacerbation. Wound cultures did grow stenotrophomonas and Pseudomonas aeruginosa. He was started on p.o. Bactrim for the stenotrophomonas and IV tobramycin due to extended resistances. It was thought that he was more in heart failure then and sepsis and the did not require further surgical intervention. Wound VAC was placed on the prior right TMA wound. He did put on some extra weight and it was thought that this fluid overload led to new onset atrial fibrillation with RVR. He responded to IV amiodarone. He was able to be transitioned to p.o. amiodarone and beta-vilma along with p.o. Eliquis. Plans are to discharge him to swing bed to complete 10 total days of IV tobramycin and continue with wound care of the right TMA and left AKA stumps.
[2025-06-14] MEDS ORDERED: TOBRAMYCIN SULFATE 320 MG in NS 100 ML IV 100 ML IV SCH (05:00)
[2025-06-14] MEDS ORDERED: PHARMACY COMMENT IV NR (17:00)
== END 2025-06-13 09:59 | disposition swing bed (61) | DRG 291 ==
LOC: MED/SURG 13:26 → ER 13:26 → OBSVTOIN 15:35 → MED/SURG 16:01 → ICU 06-07 13:59 → MED/SURG 06-09 11:37
PROVIDERS: ADMIT Family Medicine; ATTEND Family Medicine
DX: I48.91 Unspecified atrial fibrillation; R00.0 Tachycardia, unspecified; I11.0 Hypertensive heart disease with heart failure; I25.10 Atherosclerotic heart disease of native coronary artery without angina pectoris; R94.31 Abnormal electrocardiogram [ECG] [EKG]; R06.02 Shortness of breath; T87.43 Infection of amputation stump, right lower extremity; I36.1 Nonrheumatic tricuspid (valve) insufficiency; Z59.868 Other specified financial insecurity; E83.42 Hypomagnesemia; Z89.612 Acquired absence of left leg above knee; G54.6 Phantom limb syndrome with pain; E87.1 Hypo-osmolality and hyponatremia; Z60.8 Other problems related to social environment; I96 Gangrene, not elsewhere classified; I70.221 Atherosclerosis of native arteries of extremities with rest pain, right leg; B96.89 Other specified bacterial agents as the cause of diseases classified elsewhere; Z58.89 Other problems related to physical environment; D63.8 Anemia in other chronic diseases classified elsewhere; Z16.19 Resistance to other specified beta lactam antibiotics; Z16.29 Resistance to other single specified antibiotic; Z16.12 Extended spectrum beta lactamase (ESBL) resistance; R73.09 Other abnormal glucose; B96.5 Pseudomonas (aeruginosa) (mallei) (pseudomallei) as the cause of diseases classified elsewhere; Z89.421 Acquired absence of other right toe(s); Z16.23 Resistance to quinolones and fluoroquinolones; I50.23 Acute on chronic systolic (congestive) heart failure; I34.0 Nonrheumatic mitral (valve) insufficiency; J44.9 Chronic obstructive pulmonary disease, unspecified; Z59.41 Food insecurity; R79.89 Other specified abnormal findings of blood chemistry

== ENCOUNTER 2025-06-13 10:00 | Inpatient (IN) ==
[2025-06-13] MEDS ORDERED: PIGGYBACK IV SCH (11:11)
[2025-06-13] MEDS ORDERED: TYLENOL 325 MG TAB PO PRN (11:11)
[2025-06-13] MEDS ORDERED: CEFEPIME 2 GM IV SCH (11:11)
[2025-06-13] MEDS ORDERED: ULTRAM PO PRN (11:11)
[2025-06-13] MEDS ORDERED: NS 250 ML IV 25 ML IV PRN (11:11)
[2025-06-13] MEDS ORDERED: PROVENTIL NEB TX 0.083% 2.5MG/ 3ML NEB PRN (11:11)
--- NOTE | 2025-06-13 14:18 | NOTE.SOAP ---
Soap Note Note for Day of Date of Exam: 06/13/25 Subjective Data Subjective Data: And transferred to swing bed. Continues IV antibiotics for the wound of his right transmetatarsal amputation site. Wound VAC in to be changed today Objective Data Temperature: 97.6 F Pulse Rate: 53 Respiratory Rate: 21 Blood Pressure: 112/55 O2 Sat by Pulse Oximetry: 96 Objective Data: Patient not short of breath doing well. Wound VAC in without suction now to be changed later by nursing staff. Assessment Assessment: Status post left above-knee amputation. Status post right transmetatarsal amputation with open wound and eschar to the right heel. Plan Plan: Transfer to swing bed status. Continue IV antibiotics as per Dr. Sierra and continue wound vacuum to right foot and Santyl to right heel
[2025-06-13 14:46] VITALS: BMI 22.5
--- NOTE | 2025-06-13 14:49 | DR.H&P ---
H&P History & Physical for Day of: H&P Date: 06/13/25 Chief Complaint Chief Complaint: Pseudomonas infection History of Present Illness History of Present Illness: Patient mated to swing bed status after prolonged hospital stay. Originally admitted with concerns for sepsis and CHF exacerbation. By the time discharge, thought to be more of a CHF exacerbation. Discharge delayed due to IV antibiotics required after cultures returned and new onset atrial fibrillation. Patient with known coronary disease with a CABG recommended. This has been delayed due to amputations of his right foot and left leg. Surgery was consulted and recommended wound VAC and continued antibiotics. He did well on IV amiodarone which was switched to p.o. last week. Currently reports he is doing well and plans to discharge home next week. He will need 5 more days of IV antibiotics after today. He was aggressively diuresed last week with a mild PAM present today. Well-developed, well-nourished male in no acute distress. Head NCAT with hearing grossly normal. Heart regular rate and rhythm with no murmur. Lungs clear with no crackles. Belly is soft and nontender with bowel sounds present. Left AKA with healing incision. Right TMA with wound VAC in place. Legs are less edematous overall. Past Medical History Past Medical History: CHF, COPD, Coronary Artery Disease and Hypertension Additional Medical History: History of right lung cancer resected thorocoscopically . No adjuvant treatment given or required. Past Surgical History Surgical History: Angioplasty/Stents, Ortho Surgery, Tonsillectomy and Other (Right foot TMA, left AKA) Family History Family Medical History: Diabetes Mellitus Medications Home Medications: Home Medications Medication Instructions Recorded Confirmed Type carvedilol 12.5 mg tablet (Coreg) 12.5 mg PO BID 11/2906/13/25 History clopidogrel 75 mg tablet (Plavix) 75 mg PO DAILY 03/0806/13/25 History spironolactone 25 mg tablet 25 mg PO DAILY 03/24/25 History (Aldactone) albuterol sulfate 2.5 mg/3 mL 2.5 mg continuous nebuli zation Q6H 04/08/25 06/13/25 History (0.083 %) solution for nebulization PRN aspirin 81 mg tablet 81 mg PO QDAY 06/04/2506/13 History cefepime 2 gram intravenous 2 g IV Q12H 06/04/2506/13 History piggyback Allergies Allergies Allergy/AdvReac Type Severity Reaction Status Date / Time pregabalin (From Lyrica) AdvReac Severe Verified 06/04/25 14:41 gabapentin AdvReac Intermediate Verified 06/04/25 14:41 Physical Exam Vital Signs: Vital Signs Blood Pressure 112/55 Assessment/Plan (1) Pseudomonas aeruginosa infection: Narrative Support Text: Continue PT and OT. Continue wound care and IV antibiotics. Plan on discharge this or next Friday. Needs to have follow-up with cardiology for potential CABG and review of his new onset atrial fibrillation. Status: Acute (2) New onset atrial fibrillation: Status: Acute (3) Anemia, chronic disease: Status: Chronic (4) Acute on chronic systolic heart failure: Status: Acute (5) Dehiscence of wound: Status: Acute (6) Atherosclerotic heart disease of [place] coronary artery without angina pectoris: Qualifiers: [place] vs. transplanted heart: [place] heart Qualified Code(s): I25.10 - Atherosclerotic heart disease of [place] coronary artery without angina pectoris Status: Chronic (7) PAM (acute kidney injury): Status: Acute
[2025-06-13] MEDS: MORPHINE SULFATE INJ 2 MG INJ IVP PRN (16:32)
[2025-06-13] MEDS: CORDARONE TAB 200 MG PO SCH (16:49)
--- NOTE | 2025-06-13 17:34 | PT/OTEVAL ---
PT/OT OBJECTIVES - HISTORY Prescription: PT Consult Diagnosis: Multidrug Resistant Wound Infections Precautions: Fall Risk, L AKA, R Transmet Amputation, Wounds PMH: CHF, COPD, Coronary Artery Disease, Hypertension, Hx R Lung Cancer (Resected), Angioplasty/Stents, Ortho Surgery and Tonsillectomy Prior Level of Function: Independent Other: Per patient report- he has been essentially bedbound at home since undergoing amputations with very limited mobility. Pt uses a BSC for toileting and has power wheelchair, walker, standard wheelchair and sliding board. Pt reports that he has been utilizing sliding board to be independent with transfers but has very limited mobility at this time. History of Present Illness: Mr. Wilhelm is a 69 year old male who presented to [facility] on 06/04[facility]2025 with reports of R TMA wound looking worse and R foot pain. Pt was admitted to hospital for further management and now with wound vac to R foot and receiving IV ABT for treatment. Pt was transitioned to swing bed program on 06/13/2025 to continue IV ABT treatment. - COGNITION Mental Status: Alert, Oriented, Name, Date, Place, Purpose Communication Status: Verbal Ability to Follow Directions: 2 Step - PAIN Right Foot Pain Scale: Moderate L stump Pain Scale: Mild - BED MOBILITY Rolling: Supervision Scooting: Supervision - TRANSFERS Supine to Sit: Supervision - BALANCE Dynamic Sitting: Good Standing: Not Tested Static Sitting: Good Standing: Not Tested - NEUROMOTOR/SENSATION Right Lower Ext Sensation: Impaired Coordination: WFL Left Lower Ext Sensation: Impaired Coordination: WFL Comments: L BKA - ROM Right LE ROM: WFL Muscle Tone: WFL Left Hip ROM: WFL Muscle Tone: WFL - STRENGTH Right LE Strength Number: 3 Other comment: 09/15 Left Hip Strength Number: 3 Other comment: - GAIT Comments: Non-ambulatory - TREATMENT Date: 06/13/25 Time: 12:45 Treatment Type: Evaluation Treatment Provided: Therapeutic Activities - TOTAL TREATMENT TIME Total Time: 45 - POST ASSESSMENT Post Assessment Comment: Pt was found supine in bed in room- agreeable to participation. Pt provided most recent history and PLOF information to PT. Pt states he now has a sliding board at home which has helped to increase his independence as he cannot bear weight through his R foot and is a L AKA. Pt with complaints of R foot pain and minimal L stump pain. Pt able to perform bed mobility tasks with supervision. Noted with weakness to BLEs and would benefit from participation in PT services during swing bed admission to facilitate highest level of function. Review of PT POC and goals with pt. Plan is to discharge home when medically appropriate. - EXIT DISPOSITION Exit Position: BED Call light in reach: Yes PT/OT ASSESSMENT - PT Problem List: Decreased Bed Mobility, Decreased Transfers, Decreased LE Strength - PT GOALS Short Term Goals Days: 10 Mobility: Pt will perform bed mobility tasks with mod I Transfers: Pt will perform sliding board transfers with supervision [facility] Goals Days: 20 Transfers: Pt will perform sliding board transfers with mod I Balance: Pt will increase dynamic sitting balance to good ROM/Strength: Pt will increase RLE and L hip strength to 5/5 - PATIENT GOALS Patient/Family Goals: "I want to go back home soon" Goals Discussed with Patient/Family: Yes Rehabilitation Potential: Good to meet stated goals Justification for Potential: Facilitate highest level of function and safe discharge planning If yes, explain: Medically complex - PLAN Suggested Treatment Plan: Bed Mobility Training, Therapeutic Activity, Neuro Re-education, Therapeutic Ex with HEP, Patient Education, Family Education, Other Other comment: Manual Therapy - FREQUENCY AND DURATION PT: 2-3x per week x 20 days Expected Continuation of Care at Discharge: Home Health
--- NOTE | 2025-06-13 19:02 | PT/OTEVAL ---
PT/OT OBJECTIVES - HISTORY Prescription: OT Consult Diagnosis: Multidrug Resistant Wound Infections Precautions: Fall Risk, L AKA, R Transmet Amputation, Wounds PMH: CHF, COPD, Coronary Artery Disease, Hypertension, Hx R Lung Cancer (Resected), Angioplasty/Stents, Ortho Surgery and Tonsillectomy Prior Level of Function: Independent Other: Per patient report- he has been essentially bedbound at home since undergoing amputations with very limited mobility. Pt uses a BSC for toileting and has power wheelchair, walker, standard wheelchair and sliding board. Pt reports that he has been utilizing sliding board to be independent with transfers but has very limited mobility at this time. History of Present Illness: Pt is a 69 year old male who presented to [facility] ER with reports of R TMA wound looking worse and R foot pain. Pt was admitted to hospital for further management and now with wound vac to R foot and receiving IV ABT for treatment. Pt was transitioned to swing bed program to continue IV ABT treatment. - COGNITION Mental Status: Alert, Oriented, Name, Date, Place, Purpose Communication Status: Verbal Ability to Follow Directions: 2 Step Memory Loss: None Affect: Calm - PAIN Right Foot Pain Scale: Moderate L stump Pain Scale: Mild - BED MOBILITY Rolling: Supervision Scooting: Supervision - TRANSFERS Supine to Sit: Supervision Toileting: Supervision Safety (requires cues for:): Hand Placement Precaution - ADL'S Upper Body ADL: Supervision Lower Body ADL: Supervision Toileting: Supervision Bathing: Supervision - BALANCE Dynamic Sitting: Good Standing: Not Tested Static Sitting: Good Standing: Not Tested - NEUROMOTOR/SENSATION Xavier. Upper Ext Sensation: WFL Coordination: WFL Right Lower Ext Sensation: Impaired Coordination: WFL Left Lower Ext Sensation: Impaired Coordination: WFL Comments: L BKA - ROM Bilateral UE ROM: WFL - STRENGTH Bilateral UE Strength Number: 4 Other comment: 10/16 - TREATMENT Date: 06/13/25 Time: 12:45 Treatment Type: Evaluation Treatment Provided: Therapeutic Activities - TOTAL TREATMENT TIME Total Time: 45 - POST ASSESSMENT Post Assessment Comment: Upon arrival pt was found supine in bed in room on foot end of bed. Pt was agreeable to participation. Pt provided most recent history and PLOF information. Pt states he now has a sliding board at home which has helped to increase his (I) with transfers as he cannot bear weight through his R foot and is a L AKA. Pt with complaints of R foot pain and minimal L stump pain. Pt able to perform bed mobility tasks with supervision. Noted with weakness to BLEs and would benefit from participation in OT services during swing bed admission to facilitate highest level of ADL function. Review of OT plan of care and OT goals with pt, pt agreeable to plan. Plan is to discharge home when medically appropriate. - EXIT DISPOSITION Exit Position: BED Call light in reach: Yes PT/OT ASSESSMENT - OT Problem List: Decreased Mobility ADL's, Decreased Dressing, Decreased UE Strength - PT GOALS Short Term Goals Days: 10 Mobility: Pt will perform bed mobility tasks with mod I Transfers: Pt will perform sliding board transfers with supervision Medical Assistant Internal Medicine Goals Days: 20 Transfers: Pt will perform sliding board transfers with mod I Balance: Pt will increase dynamic sitting balance to good ROM/Strength: Pt will increase RLE and L hip strength to 5/5 - OT GOALS Medical Assistant Internal Medicine Goals Days: 20 Mobility for ADL's: Pt to improve functional ADL transfers with mod (I) Dressing: Pt will improve LB dressing to set up A Upper Ext. Strength/Use: Pt to improve MMT in BUE by 1 grade Short Term Goals Days: 10 Mobility for ADL's: Pt to improve functional ADL transfers with set up A and LRAD Dressing: Pt will improve UB dressing to set up A Other: Pt to improve FAT to G - PATIENT GOALS Patient/Family Goals: I want to have quality of life Rehabilitation Potential: Good to meet stated goals Justification for Potential: To facilitate highest level of ADL function needed for safe d/c planning. If yes, explain: Medically complex - PLAN Suggested Treatment Plan: Therapeutic Activity, Self Care Training, Therapeutic Ex with HEP, Patient Education - FREQUENCY AND DURATION OT: 2x a week x 20 days Expected Continuation of Care at Discharge: Home Health
[2025-06-13] MEDS: MILK OF MAGNESIA PO PRN (21:25)
[2025-06-13] MEDS: ELIQUIS PO SCH (21:25)
[2025-06-13] MEDS: BACTRIM DS TAB PO SCH (21:25)
[2025-06-13] MEDS: LOPRESSOR TAB 25 MG PO SCH (21:25)
[2025-06-13] MEDS: COLACE CAP 100 MG PO PRN (21:25)
[2025-06-14] MEDS: PROVENTIL NEB TX 0.083% 2.5MG/ 3ML NEB PRN (01:52)
[2025-06-14] MEDS: TOBRAMYCIN SULFATE 320 MG in NS 100 ML IV 100 ML IV SCH (06:08)
[2025-06-14 08:56] LABS: COR CA(FOR HYPOALB) 9.5 mg/dL (8.5-10.1); COR NA(FOR HYPERGLY) 128.0 mmol/L (136-145); CREATININE 2.0 mg/dL (0.70-1.30); eGFR NON BLACK RACES 35.0 (>60)
[2025-06-14] MEDS: ENTRESTO 24/26 MG TABLET PO SCH (10:05)
[2025-06-14] MEDS: ALDACTONE TAB 25 MG PO SCH (10:05)
[2025-06-14] MEDS: ASPIRIN EC 81 MG PO SCH (10:05)
[2025-06-14] MEDS: FLONASE NASAL SPRAY ENOSTRIL SCH (10:06)
[2025-06-14] MEDS: FARXIGA PO SCH (10:06)
[2025-06-14] MEDS: LASIX IVP SCH (16:56)
--- NOTE | 2025-06-14 17:59 | NOTE.SOAP ---
Soap Note Note for Day of Date of Exam: 06/14/25 Subjective Data Subjective Data: Patient now swing bed designation. Wound vacuum changed right foot and is working well. Continue Santyl to the wound as well continues on IV antibiotics as per Dr. Sierra. Objective Data Temperature: 97.5 F Pulse Rate: 52 Respiratory Rate: 19 Blood Pressure: 117/53 O2 Sat by Pulse Oximetry: 99 Objective Data: Right transmetatarsal amputation open wound with wound VAC in place. Santyl being applied to the right heel eschar Assessment Assessment: as above Plan Plan: Continue present treatment
[2025-06-14] MEDS: CORDARONE TAB 200 MG PO SCH (18:07)
[2025-06-14] MEDS: PHARMACY COMMENT IV NR (18:07)
[2025-06-14] MEDS: SANTYL EXT SCH (21:32)
[2025-06-15] MEDS: NORCO 5/325 MG TAB PO PRN (00:27)
[2025-06-15 06:18] LABS: MEAN PLATELET VOLUME 8.2 fL (7.4-11.0); RED CELL DISTRIBUTION WIDTH 16.8 % (11.6-16.5)
[2025-06-15 06:31] LABS: COR NA(FOR HYPERGLY) 128 mmol/L (136-145); CREATININE 1.96 mg/dL (0.70-1.30); eGFR NON BLACK RACES 36 (>60)
[2025-06-15] MEDS ORDERED: ACTIVASE CATHFLO IV NR (08:40)
[2025-06-15] MEDS: ACTIVASE CATHFLO ONE (09:25)
[2025-06-16] MEDS: LOPRESSOR TAB 25 MG PO SCH (08:44)
--- NOTE | 2025-06-16 15:23 | NOTE.SOAP ---
Soap Note Note for Day of Date of Exam: 06/15/25 Subjective Data Subjective Data: Patient seen during swing bed status. Wound VAC still present over right TMA stump. Surgery following. Has tolerated a reduced dose of amiodarone with continued sinus bradycardia. Blood pressures remain fair, on the lower end. Continued anemia with hyponatremia and creatinine elevation. Creatinine is slightly improved today. Patient reports he feels much better overall. S peaking and breathing are easy. Still some areas of edema on the stumps and abdomen. Objective Data Objective Data: Elderly male in no acute distress. Head NCAT. Hearing grossly normal. Heart without murmur and regular. Wound VAC on right TMA stump. Lungs are clear. Speech is strong. Assessment Assessment: Acute on chronic systolic heart failure New onset atrial fibrillation Pseudomonas aeruginosa of the right foot stump wound with stenotrophomonas Plan Plan: Continue therapy. Continue wound care. Continue antibiotics. Tentatively plan on discharge home next week.
[2025-06-16] MEDS ORDERED: PHARMACY COMMENT IV NR (21:00)
[2025-06-16 21:50] VITALS: O2SAT 98
[2025-06-17 05:56] LABS: MEAN PLATELET VOLUME 8.4 fL (7.4-11.0); RED CELL DISTRIBUTION WIDTH 16.7 % (11.6-16.5)
[2025-06-17 06:04] LABS: COR CA(FOR HYPOALB) 9.6 mg/dL (8.5-10.1); COR NA(FOR HYPERGLY) 131 mmol/L (136-145); CREATININE 1.28 mg/dL (0.70-1.30); eGFR NON BLACK RACES 59 (>60)
[2025-06-18] MEDS: PERCOCET TAB 5/325 MG PO PRN (04:51)
[2025-06-18 07:06] LABS: MEAN PLATELET VOLUME 8.3 fL (7.4-11.0); RED CELL DISTRIBUTION WIDTH 16.8 % (11.6-16.5)
[2025-06-18 07:08] LABS: COR CA(FOR HYPOALB) 9.7 mg/dL (8.5-10.1); COR NA(FOR HYPERGLY) 130 mmol/L (136-145); CREATININE 1.46 mg/dL (0.70-1.30); eGFR NON BLACK RACES 51 (>60)
[2025-06-18 07:19] VITALS: RESP 18
[2025-06-18 07:52] VITALS: BP 115/53; PULSE 56; TEMP 97.5
[2025-06-18] MEDS ORDERED: PHARMACY COMMENT IV NR (21:00)
--- NOTE | 2025-06-21 16:16 | PCM.DCPLAN ---
DISCHARGE SUMMARY Admission Date Date of Admission: 06/13/25 Discharge Date Discharge Date: 06/18/25 Admission Diagnoses (1) Pseudomonas aeruginosa infection: Status: Acute (2) New onset atrial fibrillation: Status: Acute (3) Anemia, chronic disease: Status: Chronic (4) Acute on chronic systolic heart failure: Status: Acute (5) Dehiscence of wound: Status: Acute (6) Atherosclerotic heart disease of [place] coronary artery without angina pectoris: Status: Chronic (7) PAM (acute kidney injury): Status: Acute Discharge Medications Discharge Medications: Prescriptions: Hospital Course Vital Signs: Vital Signs Temperature 97.5 F Pulse Rate [Left Radial] 54 Respiratory Rate 17 Blood Pressure [Left Arm] 121/57 O2 Sat by Pulse Oximetry 98 Latest Lab Results: Laboratory Last Values WBC 5.9 X10^3/uL (3.6-10.0) 06/17/25 05:10 RBC 3.51 X10^6/uL (4.7-6.0) L 06/17/25 05:10 Hgb 10.8 g/dL (13.5-18.0) L 06/17/25 05:10 Hct 32.2 % (42.0-54.0) L 06/17/25 05:10 MCV 91.7 fL (80.0-100.0) 06/17/25 05:10 MCH 30.7 pg (27.0-34.0) 06/17/25 05:10 MCHC 33.5 g/dL (33.0-35.0) 06/17/25 05:10 RDW 16.7 % (11.6-16.5) H 06/17/25 05:10 Plt Count 288 X10^3/uL (150.0-450.0) 06/17/25 05:10 MPV 8.4 fL (7.4-11.0) 06/17/25 05:10 Neut % (Auto) 63.2 % (42.0-75.0) 06/17/25 05:10 Lymph % (Auto) 25.4 % (21.0-51.0) 06/17/25 05:10 [place] % (Auto) 9.7 % (0.0-13.0) 06/17/25 05:10 Eos % (Auto) 0.8 % (0.9-2.9) L 06/17/25 05:10 Baso % (Auto) 0.9 % (0.2-1.0) 06/17/25 05:10 Neut # (Auto) 3.8 x10^3/uL (2.2-4.8) 06/17/25 05:10 Lymph # (Auto) 1.5 X10^3/uL (1.3-2.9) 06/17/25 05:10 [place] # (Auto) 0.6 x10^3/uL (0.3-0.8) 06/17/25 05:10 Eos # (Auto) 0.0 x10^3/uL (0.0-0.2) 06/17/25 05:10 Baso # (Auto) 0.1 X10^3/uL (0.0-0.1) 06/17/25 05:10 Absolute Nucleated RBC 0.1 /100WBC 06/17/25 05:10 Sodium 130 mmol/L (136-145) L 06/17/25 05:10 Corrected Sodium 131 mmol/L (136-145) L 06/17/25 05:10 Potassium 4.4 mmol/L (3.5-5.1) 06/17/25 05:10 Chloride 96 mmol/L (98-107) L 06/17/25 05:10 Carbon Dioxide 23.7 mmol/L (21-32) 06/17/25 05:10 BUN 25 mg/dL (7-18) H 06/17/25 05:10 Creatinine 1.28 mg/dL (0.70-1.30) 06/17/25 05:10 Est GFR (MDRD) Af Amer > 60 (>60) 06/17/25 05:10 Est GFR (MDRD) Non-Af 59 (>60) 06/17/25 05:10 Glucose 145 mg/dL (65-99) H 06/17/25 05:10 Calcium 8.9 mg/dL (8.5-10.1) 06/17/25 05:10 Corrected Calcium 9.6 mg/dL (8.5-10.1) 06/17/25 05:10 Total Bilirubin 0.70 mg/dL (0.2-1.0) 06/17/25 05:10 AST 13 Units/L (15-37) L 06/17/25 05:10 ALT 23 Units/L (12-78) 06/17/25 05:10 Alkaline Phosphatase 120 Units/L (46-116) H 06/17/25 05:10 Total Protein 7.8 g/dL (6.4-8.2) 06/17/25 05:10 Albumin 3.1 g/dL (3.4-5.0) L 06/17/25 05:10 Globulin 4.7 g/dL (2.5-4.5) H 06/17/25 05:10 Albumin/Globulin Ratio 0.7 Ratio (1.1-2.1) L 06/17/25 05:10 Random Tobramycin 2.1 ug/mL 06/16/25 22:36 Hospital Course: Patient admitted [facility] bed for IV antibiotics. He required p.o. Bactrim for stenotrophomonas and tobramycin for Pseudomonas. He has completed his 10 days of therapy and is requesting to go home. Vascular surgery wants him to have a wound VAC for another 4-6 weeks but patient with no way to care for the wound VAC and no home health services available. He will follow-up with podiatry, vascular surgery, and cardiology in the next 2 weeks. He needs to continue Eliquis and amiodarone for his new onset A-fib. He also needs to follow-up with cardiology because of his known coronary disease. Patient is understanding of this. Wound care reviewed with nursing before discharge. Discharged home in improved, guarded condition.
== END 2025-06-18 10:15 | disposition home or self-care (01) | DRG 564 ==
LOC: MED/SURG 10:00
PROVIDERS: ADMIT Family Medicine; ATTEND Family Medicine
DX: Z74.1 Need for assistance with personal care; Z16.24 Resistance to multiple antibiotics; B96.5 Pseudomonas (aeruginosa) (mallei) (pseudomallei) as the cause of diseases classified elsewhere; E87.1 Hypo-osmolality and hyponatremia; Z29.89 Encounter for other specified prophylactic measures; Z51.89 Encounter for other specified aftercare; T82.868A Thrombosis due to vascular prosthetic devices, implants and grafts, initial encounter; I96 Gangrene, not elsewhere classified; Z89.421 Acquired absence of other right toe(s); T87.43 Infection of amputation stump, right lower extremity; N17.8 Other acute kidney failure; I11.0 Hypertensive heart disease with heart failure; D63.8 Anemia in other chronic diseases classified elsewhere; I50.23 Acute on chronic systolic (congestive) heart failure; I48.91 Unspecified atrial fibrillation; R79.89 Other specified abnormal findings of blood chemistry; J44.9 Chronic obstructive pulmonary disease, unspecified; R73.09 Other abnormal glucose; I70.221 Atherosclerosis of native arteries of extremities with rest pain, right leg; R00.1 Bradycardia, unspecified; B96.89 Other specified bacterial agents as the cause of diseases classified elsewhere; Z89.612 Acquired absence of left leg above knee; Z79.899 Other long term (current) drug therapy; I25.10 Atherosclerotic heart disease of native coronary artery without angina pectoris